=== PATIENT | female | born 1940 | race Caucasian/White ===

== ENCOUNTER 2017-07-23 09:35 | Day surgery (SDC) | payer MEDICARE, OTHER ==
[2017-07-23] MEDS ORDERED: Propofol 200 MG/20 ML SDV ONE (09:57)
[2017-07-23] MEDS ORDERED: Lactated Ringers 1,000 ML IV SCH (10:00)
[2017-07-23] MEDS ORDERED: Sodium Chloride 0.9% 5 ML Syringe FLUSH PRN (10:00)
--- NOTE | 2017-07-23 11:11 | PCM.PN ---
- General Info Date of Service: 07/23/17 - Review of Systems Systems Review Comment:: 77-year-old female referred by Abbey Medrano for EGD. This patient has symptoms of dysphasia as well as upper abdominal bloating. She is medically stable to proceed today with no recent significant changes in her health status compared to her history and physical which is reviewed. I discussed the proposed upper endoscopy with the patient. She understands indications and risks and agrees to proceed. - Patient Data Vitals - Most Recent: Last Vital Signs Temp 97.4 F 07/23/17 09:48 Pulse 88 07/23/17 09:48 Resp 18 07/23/17 09:48 BP 173/78 H 07/23/17 09:48 Pulse Ox 93 L 07/23/17 09:48 Weight - Most Recent: 70.307 kg Med Orders - Current: Current Medications Lactated Ringer's (Ringers, Lactated) 1,000 mls @ 50 mls/hr IV ASDIRECTED CHITO Last Admin: 07/23/17 10:19 Dose: 50 mls/hr Sodium Chloride (Syrex Flush) 5 ml FLUSH Q8HR PRN PRN Reason: Keep Vein Open Discontinued Medications Propofol (Diprivan 20 Ml) Confirm Administered Dose 400 mg .ROUTE .STK-MED ONE Stop: 07/23/17 09:58 - Problem List Review Problem List Initiated/Reviewed/Updated: Yes - My Orders Last 24 Hours: My Active Orders 07/23/17 10:00 Patient to Empty Bladder [RC] ASDIRECTED Peripheral IV Care [RC] . DIRECTED Verify Patient Consent Obtain [RC] ASDIRECTED Lactated Ringers [Ringers, Lactated] 1,000 ml IV ASDIRECTED Sodium Chloride 0.9% [Syrex Flush] 5 ml FLUSH Q8HR PRN Peripheral IV Insertion Adult [OM.PC] Routine 07/23/17 Breakfast Nothing Per Oral Diet [DIET] - Assessment Assessment:: Dysphasia Abdominal bloating - Plan Plan:: EGD
[2017-07-23] MEDS ORDERED: Propofol 200 MG/20 ML SDV IV ONE (11:12)
--- NOTE | 2017-07-23 11:40 | PCM.OPNOTE ---
- General Post-Op/Procedure Note Date of Surgery/Procedure: 07/23/17 Operative Procedure(s): EGD with Bx Findings: Large Hiatal Hernia with mild reflux esophagitis Pre Op Diagnosis: Dysphagia. Abdominal Bloating Post-Op Diagnosis: Hiatal Hernia. Reflux esophagitis Anesthesia Technique: MAC Primary Surgeon: Chris Lawrence Pathology: Biopsies of Gastric Antrum Output, Urine Amount: 0 EBL in mLs: 3 Complications: None Condition: Good
[2017-07-23 13:27] VITALS: BP 127/64
--- NOTE | 2017-07-23 22:34 | OR ---
DATE OF SURGERY: 07/23/2017 SURGEON: Chris Lawrence MD REFERRING PHYSICIAN: SERGEY Charlton PREOPERATIVE DIAGNOSIS: Dysphagia and upper abdominal bloating. POSTOPERATIVE DIAGNOSIS: Hiatal hernia, reflux esophagitis. OPERATION PERFORMED: Esophagogastroduodenoscopy with biopsy. INDICATIONS FOR SURGERY: This 77-year-old female, who is referred for upper endoscopy because of symptoms of intermittent upper abdominal bloating. She also notes some difficulty swallowing. FINDINGS: The patient has a very large hiatal hernia with over 50% of her stomach being up into the chest cavity. The lining of the stomach does not appear acutely inflamed. There is a mild degree of irritation at the GE junction suggestive of mild degree of reflux esophagitis but no sign of stricturing or intrinsic or extrinsic masses identified. The esophagus although shortened because of the large hiatal hernia, otherwise appears normal. The Z- line is 25 cm from the incisors. The duodenum appears normal. PROCEDURE: The patient was taken to the operating room. She was given intravenous sedation, and her throat was topically anesthetized. The Olympus gastroscope was introduced into the mouth via a mouth guard. The oropharynx is carefully examined. No sign of foreign body, inflammation ,or obstruction is seen. Cricopharyngeus is cannulated and the esophagus was examined as the scope was advanced. The large hiatal hernia was entered and then the scope was advanced into the small intestine where examination to the first portion of the jejunum was carried out. A careful examination of the small bowel did not reveal any visible abnormalities. The scope was withdrawn back into the stomach. Biopsies were taken of the antrum to rule out H pylori. The large hiatal hernia was carefully examined. No mucosal pathology was seen. The GE junction was also carefully examined and only the mild inflammation was seen. The scope was then removed and the patient was taken from the operating room in satisfactory condition. ESTIMATED BLOOD LOSS: 3 mL. COMPLICATIONS: None. PROGNOSIS: Good. /[id number]/MODL
== END 2017-07-23 13:03 | disposition home or self-care (01) ==
LOC: KA.SDS 09:35
PROVIDERS: ATTEND Surgery
DX: K29.50 Unspecified chronic gastritis without bleeding (principal); K44.9 Diaphragmatic hernia without obstruction or gangrene; I48.91 Unspecified atrial fibrillation; Z88.8 Allergy status to other drugs, medicaments and biological substances; Z79.899 Other long term (current) drug therapy
CPT/HCPCS: 00731; 88305; 88313; 88342; J2704; J7120

== ENCOUNTER 2017-12-24 18:42 | Inpatient (IN) | payer MEDICARE, OTHER ==
[2017-12-24] MEDS ORDERED: Sodium Chloride 0.9% 5 ML Syringe FLUSH PRN (18:49)
[2017-12-24] MEDS ORDERED: Metoprolol Tartrate 5 MG/5 ML SDV IVPUSH ONE ×2 (19:01→19:57)
--- NOTE | 2017-12-24 19:01 | EDM.PDOC ---
ED HPI GENERAL MEDICAL PROBLEM - General Chief Complaint: Respiratory Problem Stated Complaint: SHORTNESS OF BREATH Time Seen by Provider: 12/24/17 18:44 Source of Information: Reports: Patient, Family History Limitations: Reports: No Limitations - History of Present Illness INITIAL COMMENTS - FREE TEXT/NARRATIVE: 77 YO WF with history of A fib and CHF who presents to ER with complaints of not feeling well. Pt reports she hasn't taken her home medication today because they are difficult to swallow. Pt denies any chest pain or back pain. Pt reports feeling dizzy and chronically short of breath. Pt able to walk into ER without assistance. Onset: Today Location: Reports: Chest Severity: Moderate Worsens with: Reports: Breathing Associated Symptoms: Reports: Malaise, Shortness of Breath. Denies: Chest Pain , Cough, cough w sputum, Diaphoresis, Fever/Chills, Headaches, Nausea/Vomiting, Rash, Seizure, Syncope - Related Data Allergies Allergy/AdvReac Type Severity Reaction Status Date / Time DEE Inhibitors Allergy Edema Verified 12/24/17 19:01 diltiazem Allergy Rash Verified 12/24/17 19:01 ibuprofen Allergy Itching Verified 12/24/17 19:01 morphine Allergy Itching Verified 12/24/17 19:01 propoxyphene napsylate Allergy Itching Verified 12/24/17 19:01 [From Uriel] Home Meds: Home Meds RX: amLODIPine Besylate [Norvasc] 5 mg PO DAILY 06/06/15 [History] RX: Potassium Chloride 20 meq PO BID #30 tablet.er 07/02/15 [Rx] RX: Albuterol [IJD: Ventolin HFA] 2 puff INH .TWICE DAILY PRN #18 gm 04/19/16 [ Rx] RX: Furosemide 20 mg PO BID 04/19/16 [History] RX: Metoprolol Tartrate 50 mg PO DAILY 04/19/16 [History] Past Medical History HEENT History: Reports: Cataract, Hard of Hearing, Impaired Vision, Macular Degeneration Cardiovascular History: Reports: Afib, High Cholesterol, Hypertension, SOB on Exertion Respiratory History: Reports: Pneumonia, Recurrent, SOB Gastrointestinal History: Reports: None Genitourinary History: Reports: None Other Genitourinary History: cancer CONSTRUCTION ANALYST History: Reports: Dysfunctional Uterine Bleeding, Fibroids, Other CONSTRUCTION ANALYST History: hysterectomy 1979 Musculoskeletal History: Reports: Back Pain, Chronic Neurological History: Reports: None Psychiatric History: Reports: None Endocrine/Metabolic History: Reports: None Hematologic History: Reports: Anemia, Blood Transfusion(s), Transfusion Reaction Immunologic History: Reports: None Oncologic (Cancer) History: Reports: Bladder Dermatologic History: Reports: None - Infectious Disease History Infectious Disease History: Reports: Chicken Pox, Measles, Mumps, Shingles - Past Surgical History HEENT Surgical History: Reports: Cataract Surgery Cardiovascular Surgical History: Reports: None Respiratory Surgical History: Reports: None GI Surgical History: Reports: Appendectomy, EGD, Hernia, Abdominal Female Surgical History: Reports: D&C, Hysterectomy, Salpingo-Oophorectomy, Tubal Ligation Neurological Surgical History: Reports: Spinal Fusion Musculoskeletal Surgical History: Reports: None Oncologic Surgical History: Reports: None Social & Family History - Family History Family Medical History: Noncontributory - Caffeine Use Caffeine Use: Reports: Coffee ED ROS GENERAL - Review of Systems Review Of Systems: See Below Constitutional: Reports: No Symptoms HEENT: Reports: No Symptoms Respiratory: Reports: Shortness of Breath Cardiovascular: Reports: No Symptoms. Denies: Chest Pain, Edema, Palpitations, Syncope Endocrine: Reports: No Symptoms GI/Abdominal: Reports: No Symptoms : Reports: No Symptoms Musculoskeletal: Reports: No Symptoms Skin: Reports: No Symptoms Neurological: Reports: No Symptoms Psychiatric: Reports: No Symptoms Hematologic/Lymphatic: Reports: No Symptoms Immunologic: Reports: No Symptoms ED EXAM, GENERAL - Physical Exam Exam: See Below Exam Limited By: No Limitations General Appearance: Alert, WD/WN, No Apparent Distress Neck: Normal Inspection, Supple, Non-Tender, Full Range of Motion Respiratory/Chest: No Respiratory Distress, Normal Breath Sounds, No Accessory Muscle Use, Chest Non-Tender, Decreased Breath Sounds. No: Accessory Muscle Use , Retractions, Splinting Cardiovascular: Normal Peripheral Pulses, No Edema, No Gallop, No JVD, No Murmur , No Rub, Tachycardia, Irregularly Irregular GI/Abdominal: Normal Bowel Sounds, Soft, Non-Tender, No Organomegaly, No Distention, No Abnormal Bruit, No Mass Back Exam: Normal Inspection, Full Range of Motion, NT Extremities: Normal Inspection, Normal Range of Motion, Non-Tender, Normal Capillary Refill, No Pedal Edema Neurological: Alert, Oriented, CN II-XII Intact, Normal Cognition, Normal Gait, Normal Reflexes, No Motor/Sensory Deficits Psychiatric: Normal Affect, Normal Mood Skin Exam: Warm, Dry, Intact, Normal Color, No Rash Lymphatic: No Adenopathy EKG INTERPRETATION EKG Date: 12/24/17 Time: 18:58 Rhythm: A-Fib Rate (Beats/Min): 138 [place]: Normal P-Wave: Absent QRS: Normal ST-T: Normal QT: Normal Course - Vital Signs Last Recorded V/S: Last Vital Signs Temp 37.3 C 12/24/17 19:56 Pulse 121 H 12/24/17 19:56 Resp 22 H 12/24/17 19:56 BP 131/79 12/24/17 19:56 Pulse Ox 97 12/24/17 19:56 - Orders/Labs/Meds Orders: Active Orders 24 hr Category Date Time Status Cardiac Monitoring [RC] . DIRECTED Care 12/24/17 18:49 Active EKG Documentation Completion [RC] ASDIRECTED Care 12/24/17 18:52 Active Oxygen Therapy Adult [Oxygen Therapy, ED] [RC] Care 12/24/17 18:49 Active ASDIRECTED Peripheral IV Care [RC] . DIRECTED Care 12/24/17 18:52 Active Chest 2V [CR] Stat Exams 12/24/17 18:49 Taken Sodium Chloride 0.9% [Syrex Flush] Med 12/24/17 18:49 Active 5 ml FLUSH Q8HR PRN Peripheral IV Insertion Adult [OM.PC] Routine Oth 12/24/17 18:49 Ordered EKG 12 Lead [EK] Routine Ther 12/24/17 18:49 Ordered Medication Orders Metoprolol Tartrate (Lopressor) 12.5 mg PO ONETIME ONE Stop: 12/24/17 22:01 Metoprolol Tartrate (Lopressor) 50 mg PO BID CHITO Sodium Chloride (Syrex Flush) 5 ml FLUSH Q8HR PRN PRN Reason: Keep Vein Open Sodium Chloride (Syrex Flush) 5 ml FLUSH Q8HR PRN PRN Reason: Keep Vein Open Labs: Laboratory Tests 12/24/17 12/24/17 Range/Units 18:50 18:50 WBC 6.2 (5.0-10.0) 10^3/uL RBC 5.10 (3.80-5.50) 10^6/uL Hgb 17.0 H (12.0-16.0) g/dL Hct 48.6 H (37.0-47.0) % MCV 95.3 H D (82.0-92.0) fL MCH 33.3 H (27.0-31.0) pg MCHC 35.0 (32.0-36.0) g/dL RDW 14.4 (11.5-14.5) % Plt Count 194 (150-400) 10^3/uL MPV 11.3 H (7.4-10.4) fL Immature Gran % (Auto) 0.6 (0.0-5.0) % Neut % (Auto) 69.5 (50.0-70.0) % Lymph % (Auto) 19.6 L (20.0-40.0) % Sanders % (Auto) 9.3 H (2.0-8.0) % Eos % (Auto) 0.2 L (1.0-3.0) % Baso % (Auto) 0.8 (0.0-1.0) % Immature Gran # (Auto) 0.04 (0.00-0.50) 10^3/uL Neut # (Auto) 4.31 (2.50-7.00) 10^3/uL Lymph # (Auto) 1.22 (1.00-4.00) 10^3/uL Sanders # (Auto) 0.58 (0.10-0.80) 10^3/uL Eos # (Auto) 0.01 L (0.10-0.30) 10^3/uL Baso # (Auto) 0.05 (0.00-0.10) 10^3/uL Sodium 132 L (136-145) mmol/L Potassium 3.4 (3.3-5.3) mmol/L Chloride 91 L (98-115) mmol/L Carbon Dioxide 23.7 (21.0-32.0) mmol/L Anion Gap 20.7 H (5-15) mmol/L BUN 13 (6-25) mg/dL Creatinine 0.74 (0.51-1.17) mg/dL Est Cr Clr Drug Dosing 57.71 mL/min Estimated GFR (MDRD) > 60 mL/min Glucose 103 mg/dL Calcium 9.2 (8.7-10.3) mg/dL Total Bilirubin 1.5 H (0.2-1.0) mg/dL AST 56 H (15-37) U/L ALT 61 (12-78) U/L Alkaline Phosphatase 117 H (46-116) IU/L Creatine Kinase 48 (26-276) U/L CK-MB (CK-2) 0.80 (0.00-4.30) ng/mL Troponin I < 0.04 (0.00-0.070) ng/mL B-Natriuretic Peptide 237 H (0-100) pg/mL Total Protein 7.9 (6.4-8.2) g/dL Albumin 3.65 (3.00-4.80) g/dL Meds: Medications Generic Name Dose Route Start Last Admin Trade Name Freq PRN Reason Stop Dose Admin Metoprolol Tartrate 12.5 mg 12/24/17 22:00 Lopressor PO 12/24/17 22:01 ONETIME ONE Metoprolol Tartrate 50 mg 12/25/17 07:00 Lopressor PO BID CHITO Sodium Chloride 5 ml 12/24/17 18:49 Syrex Flush FLUSH Q8HR PRN Keep Vein Open Sodium Chloride 5 ml 12/24/17 19:57 Syrex Flush FLUSH Q8HR PRN Keep Vein Open Discontinued Medications Generic Name Dose Route Start Last Admin Trade Name Freq PRN Reason Stop Dose Admin Metoprolol Tartrate 5 mg 12/24/17 19:01 12/24/17 19:20 Lopressor IVPUSH 12/24/17 19:02 5 mg ONETIME ONE Administration Metoprolol Tartrate 5 mg 12/24/17 19:57 Lopressor IVPUSH 12/24/17 19:58 ONETIME ONE - Radiology Interpretation Free Text/Narrative:: CXR- NAD Departure - Departure Time of Disposition: 19:39 Disposition: Admitted As Inpatient 64 Condition: Fair Clinical Impression: Atrial fibrillation with rapid ventricular response - Discharge Information - My Orders Last 24 Hours: My Active Orders 12/24/17 18:49 Cardiac Monitoring [RC] . DIRECTED Oxygen Therapy Adult [Oxygen Therapy, ED] [RC] ASDIRECTED Chest 2V [CR] Stat Sodium Chloride 0.9% [Syrex Flush] 5 ml FLUSH Q8HR PRN Peripheral IV Insertion Adult [OM.PC] Routine EKG 12 Lead [EK] Routine 12/24/17 18:52 EKG Documentation Completion [RC] ASDIRECTED Peripheral IV Care [RC] . DIRECTED - Assessment/Plan Last 24 Hours: My Active Orders 12/24/17 18:49 Cardiac Monitoring [RC] . DIRECTED Oxygen Therapy Adult [Oxygen Therapy, ED] [RC] ASDIRECTED Chest 2V [CR] Stat Sodium Chloride 0.9% [Syrex Flush] 5 ml FLUSH Q8HR PRN Peripheral IV Insertion Adult [OM.PC] Routine EKG 12 Lead [EK] Routine 12/24/17 18:52 EKG Documentation Completion [RC] ASDIRECTED Peripheral IV Care [RC] . DIRECTED Assessment:: 1. Atrial Fibrillation with RVR Plan: 1. Admit for rate control- Dr Sharon Lanza 2. metoprolol 25mg PO BID 3. supportive care 4. gentle fluid hydration to correct hyponatremia
[2017-12-24 19:27] LABS: ANION GAP 20.7 mmol/L (5-15); CHLORIDE,CL 91 mmol/L (98-115); SODIUM,NA 132 mmol/L (136-145)
[2017-12-24] MEDS ORDERED: Metoprolol Tartrate 25 MG Tab PO ONE (22:00)
[2017-12-25] MEDS: Metoprolol Tartrate 50 MG Tab PO SCH ×3 (06:04→20:26)
[2017-12-25 08:05] LABS: ANION GAP 7.5 mmol/L (5-15); CHLORIDE,CL 96 mmol/L (98-115); SODIUM,NA 125 mmol/L (136-145)
[2017-12-25] MEDS ORDERED: Magnesium Sulfate/Water 2 GM in Premix Bag 1 BAG IV ONE (10:37)
[2017-12-25] MEDS ORDERED: Potassium Chloride 20 MEQ in Premix Bag 1 BAG IV ONE (10:39)
[2017-12-25] MEDS ORDERED: Nitroglycerin 0.4 MG Tab.SL SL PRN (11:07)
[2017-12-25] MEDS ORDERED: Atropine 0.1 MG/ML 10 ML Syringe IVPUSH PRN (11:07)
[2017-12-25] MEDS ORDERED: EPINEPHrine 1:10,000 1 MG/10 ML Syringe IVPUSH PRN (11:07)
[2017-12-25] MEDS ORDERED: Lidocaine 2% 100 MG/5 ML Syringe IVPUSH PRN (11:07)
[2017-12-25] MEDS ORDERED: Sodium Chloride 0.9% 250 ML ONE (11:15)
[2017-12-25] MEDS: Sodium Chloride 1 GM Tab PO SCH ×2 (11:19→20:26)
[2017-12-25] MEDS: Sodium Chloride 0.9% 5 ML Syringe FLUSH PRN (11:31)
[2017-12-25] MEDS ORDERED: Albuterol HFA 18 Gm Inhaler INH PRN (11:49)
[2017-12-25] MEDS ORDERED: amLODIPine 2.5 MG Tab PO SCH (12:00)
[2017-12-25] MEDS ORDERED: Magnesium Sulfate/Water 50 ML IV ONE (12:45)
[2017-12-25] MEDS: amLODIPine 2.5 MG Tab PO SCH ×2 (14:14→20:26)
--- NOTE | 2017-12-25 15:14 | PN ---
12/25/2017 PATIENT NAME: CIERRA MALHOTRA SUBJECTIVE: This is a 77-year-old female who was admitted through the emergency room yesterday with atrial fibrillation with rapid ventricular response. She does have a past history of atrial fibrillation as well as congestive heart failure and COPD. The patient reported to the ER provider that she had not been taking her home medications because they were difficult to swallow. The patient denied any chest pain or back pain. She was having some dizziness and chronic shortness of breath. She was able to walk into the emergency room without any assistance. Ventricular rate of the atrial fibrillation bennett is in the 140s. She did receive some IV metoprolol. She has tried Cardizem in the past, however, developed a rash from it. Emergency room labs have been reviewed. BNP is 237. The troponins have been normal at less than 0.04. Significant lab data from today shows a normal white count. Her hemoglobin is 14.5. She does have a sodium of 125 with this being lower than when she was in the emergency room last evening. Her sodium at that time was 132. Potassium was 3.1. Magnesium was low at 1.6. Calcium was also low at 8.5. Again troponin I today was less than 0.04. BNP in the emergency room was 237. The patient reports for the past month she has been tired and increasingly short of breath. She has not had a recent clinic appointment. She has been on telemetry in atrial fibrillation with a rate of 100 to 117. There was a plan for gentle fluid hydration to correct hyponatremia; however, this was not initiated. OBJECTIVE: VITAL SIGNS: Temp is 98.1; pulse is 106 according to the vital sheet, when I auscultated her apical pulse for 1 minute on exam, her pulse was 88; respiratory rate was 18, blood pressure 126/85. Her oxygen saturation is 96% on room air, it has been as low as 94%. SKIN: Warm and dry to touch. CARDIAC: Reveals S1, S2 to be normal. She does have an irregularly irregular rhythm with a rate of 88 beats per minute apically. There is no murmur, click, or gallop auscultated. LUNGS: Clear with exception of fine rales in the right lower lobe. ABDOMEN: Soft, nontender. Bowel sounds present in all 4 quadrants. EXTREMITIES: She does not have any pedal edema. IMPRESSION: 1. Atrial fibrillation with rapid ventricular response. Her rate has become better controlled at this time with the addition of metoprolol received in the emergency room. She recently had an echocardiogram on 07/25/2017, which showed normal left ventricular wall motion and contractility; ejection fraction 55% to 60%; no LVH; left ventricle was in normal size; left atrium was mildly dilated; right ventricle was normal size and systolic function; no significant valvular stenosis or regurgitation; there was no pericardial effusion. Chest x-ray performed in 07/2017 showed an increased size of cardiac silhouette and a hiatal hernia. 2. Difficulty swallowing pills. She did have an upper GI endoscopy on 07/23/2017, which showed hiatal hernia and some reflux esophagitis. We will schedule her for a swallow eval. She does have issue swallowing pills and sometimes actually ends up spitting them back up or eliminating the dose. This may have contributed to the recurrent rapid ventricular rate of her atrial fibrillation. 3. Hyponatremia. She will be given oral sodium replacement today. 4. Hypokalemia. She will receive IV potassium replacement today. 5. Hypomagnesemia. She will receive 2 g of magnesium intravenously today. 6. Chronic obstructive pulmonary disease. This is a chronic problem. She is oxygenating without signs of oxygen desaturation or hypoxia. We will add 1- 2 L of oxygen due to shortness of breath. I have encouraged the patient to be up walking in the hallway. We may consider setting her up for a cardiac rehab as a suggestion for conditioning. She is a bit of up fall risk. She does live at home. She describes periods when she changes position quickly that she gets somewhat lightheaded. She also admits to 2 "large" alcoholic beverages per day. Her [id number], María Malhotra, Pharm. D, was present during her examination this morning as well as her son, Chris. If her labs have normalized by tomorrow, discharge may be entertained. We will continue to monitor closely. /[id number]/MODL
[2017-12-26 07:59] LABS: ANION GAP 11.8 mmol/L (5-15); CHLORIDE,CL 98 mmol/L (98-115); SODIUM,NA 131 mmol/L (136-145)
[2017-12-26] MEDS ORDERED: Metoprolol Tartrate 50 MG Tab PO ONE (08:45)
[2017-12-26] MEDS: amLODIPine 2.5 MG Tab PO SCH ×2 (08:59→21:48)
[2017-12-26] MEDS: Furosemide 20 MG Tab PO SCH (08:59)
[2017-12-26] MEDS: Sodium Chloride 1 GM Tab PO SCH ×2 (08:59→21:48)
[2017-12-26] MEDS ORDERED: Metoprolol Tartrate 50 MG Tab PO SCH (09:00)
[2017-12-26] MEDS: Aspirin 81 MG Tab.EC PO SCH (09:02)
[2017-12-26] MEDS: Metoprolol Tartrate 50 MG Tab PO SCH ×2 (09:02→21:46)
[2017-12-26] MEDS: Sodium Chloride 0.9% 5 ML Syringe FLUSH PRN (09:05)
--- NOTE | 2017-12-26 17:08 | PN ---
12/26/2017 PATIENT NAME: CIERRA PRADHAN SUBJECTIVE: This is a 77-year-old female who was admitted to the emergency room with atrial fibrillation with RVR. She was given IV metoprolol in the emergency room. She has tried Cardizem in the past, however, developed a rash from it. Yesterday, she was found to be hypokalemic, hypomagnesemic, and hyponatremic. Potassium and magnesium were replaced intravenously and have normalized today. Potassium on 12/25/2017 was 3.1, which has now, this morning, improved to 3.7. Magnesium was 1.6 yesterday and is now 2.0. These problems have corrected. Sodium is 131, previously 125 yesterday. We are replacing sodium orally 1 g b.i.d. The patient reports she is feeling better today. Less short of breath and less groggy. She denies any chest pain. She believes her shortness of breath is somewhat better. She does not feel that she has improved 100% yet. She was complaining of having difficulty swallowing pills and is scheduled to have a video swallow evaluation as an outpatient. She last had an echocardiogram on 07/25/2017, which showed normal left ventricular wall motion and contractility with an ejection fraction of 55% to 60%. Right ventricle was normal. Valvular structures were found to be normal as well. The only abnormality found on the echocardiogram was left atrium enlargement, which was deemed to be mild. She does have a low calcium in addition to a low protein and albumin. This is possibly a nutritional issue secondary to not eating well over the course of the past three to four days. Her calcium on admission was 9.2, today is 8.4. Total protein is 6.3 and albumin 2.86. Corrected calcium is 9.3, which is within normal limits. OBJECTIVE: VITAL SIGNS: Temperature is 97.1, pulse is 109 at rest. Of note, her pulse rate does increase to 120-140 with the slightest bit of exertion, such as eating. This was noted on the telemetry as well as an apical pulse while the patient was sitting up eating. She does have an irregularly irregular heart rhythm, respirations are 20, blood pressure 130/79, and her oxygen saturation is 92% on room air. She does have p.r.n. oxygen, which she is not using at the time of the exam. SKIN: Warm and dry to touch. CARDIAC: S1, S2 to be normal. She has an irregularly irregular rhythm with an apical heart rate of 136 while sitting up eating. No murmur, click, or gallop is auscultated. LUNGS: Clear. She previously had rales in the right lower lobe, however, does not have crackles any longer. ABDOMEN: Soft, nontender. Bowel sounds present in all four quadrants. EXTREMITIES: There is no pedal edema. IMPRESSION: 1. Atrial fibrillation with rapid ventricular response. This has improved; however, she still has some rate issues with minimal exertion. She is taking metoprolol 50 mg b.i.d. We will give an additional 50 mg this morning and see how she responds to this. 2. Difficulty swallowing pills. She did have an upper GI endoscopy on 07/23/2017, which showed hiatal hernia with some reflux esophagitis. She will be set up for a video swallow evaluation as an outpatient. 3. Hyponatremia. We will continue giving oral sodium supplementation. This has improved. 4. Hypokalemia, this has resolved. 5. hypomagnesemia, this has resolved. 6. Chronic obstructive pulmonary disease, this is a chronic problem. She has been oxygenating fairly well without oxygen. However, I did add 1-2 L of oxygen p.r.n. yesterday which has improved her shortness of breath. I have encouraged the patient to be up, walking in the hallway. I do believe she would benefit from some cardiac rehabilitation as she does seem somewhat deconditioned to me. I have discussed my findings with Dr. Sharon Gaming, who concurs. /[id number]/MODL
[2017-12-27 08:29] LABS: ANION GAP 11.8 mmol/L (5-15); CHLORIDE,CL 100 mmol/L (98-115); SODIUM,NA 132 mmol/L (136-145)
[2017-12-27] MEDS: Metoprolol Tartrate 50 MG Tab PO SCH ×2 (08:56→21:08)
[2017-12-27] MEDS: Sodium Chloride 1 GM Tab PO SCH ×2 (08:56→21:09)
[2017-12-27] MEDS: Furosemide 20 MG Tab PO SCH (08:56)
[2017-12-27] MEDS: Aspirin 81 MG Tab.EC PO SCH (08:56)
[2017-12-27] MEDS: amLODIPine 2.5 MG Tab PO SCH ×2 (08:56→21:09)
[2017-12-27] MEDS ORDERED: Metoprolol Tartrate 50 MG Tab PO ONE (09:30)
[2017-12-27] MEDS: Sodium Chloride 0.9% 5 ML Syringe FLUSH PRN (09:48)
--- NOTE | 2017-12-27 09:52 | PCM.PN ---
- General Info Date of Service: 12/27/17 Admission Dx/Problem (Free Text): Atrial fibrillation with RVR. - Review of Systems Systems Review Comment:: Vickie was admitted on 12/24/17 through the ER with a-fib with RVR. She takes metoprolol as an outpatient 50 mg PO BID although she thinks she was only taking it once daily. She has a hx a-fib with RVR and had an allergic reaction to diltiazem and has an intolerance to digoxin and amiodarone. She was given IV metoprolol in the ER which brought her rate down from 140's to 110's. She has had an elevation in her HR with any sort of activity. She received an extra dose of metoprolol 50 mg x 1 yesterday without much effect in her HR. She notes pill dysphagia, no problems with foods or liquids. Video swallow has been ordered. EGD done in the past year has been unremarkable. She notes she feels very tired, but has for the past year. Her [id number] also noted very concentrated appearing urine today. She has been found to have low sodium and this is improving with the addition of salt tabs. Her potassium was low this morning. - Patient Data Vitals - Most Recent: Last Vital Signs Temp 98.4 F 12/27/17 06:18 Pulse 106 H 12/27/17 08:56 Resp 24 H 12/27/17 06:18 BP 119/62 12/27/17 08:56 Pulse Ox 94 L 12/27/17 06:18 Weight - Most Recent: 150 lb I&O - Last 24 Hours: Intake & Output 12/26/17 12/27/17 12/27/17 22:59 06:59 14:59 Intake Total 50 Output Total 400 100 Balance -400 -50 Lab Results Last 24 Hours: Laboratory Results - last 24 hr 12/27/17 12/27/17 Range/Units 07:15 07:15 Sodium 132 L (136-145) mmol/L Potassium 3.1 L (3.3-5.3) mmol/L Chloride 100 (98-115) mmol/L Carbon Dioxide 23.3 (21.0-32.0) mmol/L Anion Gap 11.8 (5-15) mmol/L BUN 14 (6-25) mg/dL Creatinine 0.61 (0.51-1.17) mg/dL Est Cr Clr Drug Dosing 70.01 mL/min Estimated GFR (MDRD) > 60 mL/min Glucose 87 mg/dL Calcium 8.3 L (8.7-10.3) mg/dL Free T4 1.01 (0.59-1.17) ng/dL TSH, Ultra Sensitive 3.260 (0.340-4.820) uIU/mL Med Orders - Current: Current Medications Albuterol (Ventolin Hfa) 0 gm INH BID PRN PRN Reason: Shortness of Breath Amlodipine Besylate (Norvasc) 2.5 mg PO BID [facility] Last Admin: 12/27/17 08:56 Dose: 2.5 mg Aspirin (Halfprin) 81 mg PO WITHBREAKFAST [facility] Last Admin: 12/27/17 08:56 Dose: 81 mg Atropine Sulfate (Atropine 0.1 Mg/Ml) 0 mg IVPUSH ASDIRECTED PRN PRN Reason: Heart Epinephrine HCl (Epinephrine 1:10,000) 1 mg IVPUSH ASDIRECTED PRN PRN Reason: Heart Furosemide (Lasix) 20 mg PO DAILY [facility] Last Admin: 12/27/17 08:56 Dose: 20 mg Lidocaine HCl (Xylocaine 2%) 0 mg IVPUSH ASDIRECTED PRN PRN Reason: Heart Metoprolol Tartrate (Lopressor) 100 mg PO BID [facility] Nitroglycerin (Nitrostat) 0.4 mg SL ASDIRECTED PRN PRN Reason: Heart Sodium Chloride (Syrex Flush) 5 ml FLUSH Q8HR PRN PRN Reason: Keep Vein Open Last Admin: 12/26/17 09:05 Dose: 5 ml Sodium Chloride (Sodium Chloride) 1 gm PO BID [facility] Last Admin: 12/27/17 08:56 Dose: 1 gm Discontinued Medications Amlodipine Besylate (Norvasc) 5 mg PO DAILY [facility] Last Admin: 12/25/17 12:47 Dose: Not Given Potassium Chloride 20 meq/ (Premix) 100 mls @ 50 mls/hr IV ONETIME ONE Stop: 12/25/17 12:38 Last Admin: 12/25/17 11:24 Dose: 50 mls/hr Sodium Chloride (Normal Saline) Confirm Administered Dose 250 mls @ as directed .ROUTE .STK-MED ONE Stop: 12/25/17 11:16 Last Admin: 12/25/17 11:31 Dose: 50 mls/hr Magnesium Sulfate (Magnesium Sulfate 4 Gm In Water 100 Ml) 50 mls @ 100 mls/hr IV ONETIME ONE Stop: 12/25/17 13:14 Last Admin: 12/25/17 14:33 Dose: 100 mls/hr Metoprolol Tartrate (Lopressor) 5 mg IVPUSH ONETIME ONE Stop: 12/24/17 19:02 Last Admin: 12/24/17 19:20 Dose: 5 mg Metoprolol Tartrate (Lopressor) 5 mg IVPUSH ONETIME ONE Stop: 12/24/17 19:58 Last Admin: 12/24/17 20:03 Dose: 5 mg Metoprolol Tartrate (Lopressor) 12.5 mg PO ONETIME ONE Stop: 12/24/17 22:01 Last Admin: 12/24/17 21:40 Dose: 12.5 mg Metoprolol Tartrate (Lopressor) 50 mg PO BID [facility] Last Admin: 12/27/17 08:56 Dose: 50 mg Metoprolol Tartrate (Lopressor) 50 mg PO DAILY [facility] Metoprolol Tartrate (Lopressor) 50 mg PO ONETIME ONE Stop: 12/26/17 08:46 Last Admin: 12/26/17 09:02 Dose: 50 mg Metoprolol Tartrate (Lopressor) 50 mg PO ONETIME ONE Stop: 12/27/17 09:31 Sodium Chloride (Syrex Flush) 5 ml FLUSH Q8HR PRN PRN Reason: Keep Vein Open - Exam Quality Assessment: Supplemental Oxygen General: Alert, Oriented, Cooperative, No Acute Distress Lungs: Clear to Auscultation, Normal Respiratory Effort Cardiovascular: Irregular Rhythm, Tachycardia, Murmurs (2/6 systolic murmur) GI/Abdominal Exam: Normal Bowel Sounds Extremities: Normal Inspection, No Pedal Edema - Problem List & Annotations (1) Hypokalemia SNOMED Code(s): 28927704 Code(s): E87.6 - HYPOKALEMIA Status: Acute Current Visit: Yes (2) Pill dysphagia SNOMED Code(s): 103516180 Code(s): R13.10 - DYSPHAGIA, UNSPECIFIED Status: Acute Current Visit: Yes (3) Atrial fibrillation with rapid ventricular response SNOMED Code(s): 661680932838988 Code(s): I48.91 - UNSPECIFIED ATRIAL FIBRILLATION Status: Acute Current Visit: Yes (4) Congestive heart failure SNOMED Code(s): 18927279 Code(s): I50.9 - HEART FAILURE, UNSPECIFIED Status: Chronic Current Visit : No Qualifiers: Qualified Code(s): I50.9 - Heart failure, unspecified (5) Hypertension SNOMED Code(s): 39081019 Code(s): I10 - ESSENTIAL (PRIMARY) HYPERTENSION Status: Chronic Current Visit: No (6) Hyponatremia SNOMED Code(s): 45304657 Code(s): E87.1 - HYPO-OSMOLALITY AND HYPONATREMIA Status: Acute Current Visit: Yes - Problem List Review Problem List Initiated/Reviewed/Updated: Yes - My Orders Last 24 Hours: My Active Orders 12/27/17 08:55 UA W/O MICROSCOPIC [URIN] Routine 12/27/17 21:00 Metoprolol Tartrate [Lopressor] 100 mg PO BID - Assessment Assessment:: A-fib with RVR. CHF HTN Hyopkalemia Hyponatremia Pill dysphagia Concentrated urine - Plan Plan:: A-fib with RVR. I spoke to cardiology at [facility] as that is where she would want to be transferred and they recommended going up on metoprolol so will increase to 100 mg PO BID. If no change in 2-3 days may need referral for EP study and possible ablation. CHF Stable, no exacerbation. HTN. Stable, will monitor with increase in metoprolol. Hypopkalemia. Start potassium chloride 20 mEq PO daily. Hyponatremia. Continue salt tabs. Pill dysphagia. Video swallow ordered. Concentrated urine. Will get UA today. I also checked thyroid studies and they are normal. Troponins negative.
[2017-12-27] MEDS: Potassium Chloride 10 MEQ Tab.ER PO SCH (10:36)
[2017-12-27] MEDS: NS + KCl 20mEq/L 1,000 ML IV SCH (13:36)
[2017-12-27] MEDS: Rivaroxaban 10 MG Tab PO SCH (17:45)
[2017-12-27] MEDS: Ciprofloxacin 250 MG Tab PO SCH (21:07)
[2017-12-28] MEDS: NS + KCl 20mEq/L 1,000 ML IV SCH (03:38)
[2017-12-28 08:32] LABS: ANION GAP 13.5 mmol/L (5-15); CHLORIDE,CL 101 mmol/L (98-115); SODIUM,NA 133 mmol/L (136-145)
[2017-12-28] MEDS: Aspirin 81 MG Tab.Chew PO SCH (09:14)
[2017-12-28] MEDS: Metoprolol Tartrate 50 MG Tab PO SCH ×2 (09:15→20:38)
[2017-12-28] MEDS: Furosemide 20 MG Tab PO SCH (09:15)
[2017-12-28] MEDS: Potassium Chloride 10 MEQ Tab.ER PO SCH (09:15)
[2017-12-28] MEDS: Ciprofloxacin 250 MG Tab PO SCH ×2 (09:15→20:37)
[2017-12-28] MEDS: Rivaroxaban 10 MG Tab PO SCH (09:16)
[2017-12-28] MEDS: amLODIPine 2.5 MG Tab PO SCH ×2 (09:16→20:38)
[2017-12-28] MEDS: Sodium Chloride 1 GM Tab PO SCH ×2 (09:16→20:37)
--- NOTE | 2017-12-28 11:08 | PCM.PN ---
- General Info Date of Service: 12/28/17 Admission Dx/Problem (Free Text): Atrial fibrillation with RVR. Subjective Update: Pt reports she is feeling tired today. Pt denies any shortness of breath or chest pain. Pt ambulating without difficulty. Functional Status: Reports: Pain Controlled, Tolerating Diet, Ambulating, Urinating, Incentive Spirometry Pain Score: 0 - Review of Systems General: Reports: No Symptoms HEENT: Reports: No Symptoms Pulmonary: Reports: No Symptoms Cardiovascular: Reports: No Symptoms Gastrointestinal: Reports: No Symptoms Genitourinary: Reports: No Symptoms Musculoskeletal: Reports: No Symptoms Skin: Reports: No Symptoms Neurological: Reports: No Symptoms Psychiatric: Reports: No Symptoms - Patient Data Vitals - Most Recent: Last Vital Signs Temp 36.4 C 12/28/17 07:00 Pulse 110 H 12/28/17 09:17 Resp 24 H 12/28/17 07:00 BP 110/75 12/28/17 09:17 Pulse Ox 95 12/28/17 07:00 Weight - Most Recent: 68.039 kg I&O - Last 24 Hours: Intake & Output 12/27/17 12/28/17 12/28/17 22:59 06:59 14:59 Intake Total 851 582 Output Total 300 Balance 551 582 Lab Results Last 24 Hours: Laboratory Results - last 24 hr 12/27/17 12/28/17 12/28/17 Range/Units 12:20 08:00 08:00 WBC 6.5 (5.0-10.0) 10^3/uL RBC 4.53 (3.80-5.50) 10^6/uL Hgb 15.2 (12.0-16.0) g/dL Hct 44.3 (37.0-47.0) % MCV 97.8 H (82.0-92.0) fL MCH 33.6 H (27.0-31.0) pg MCHC 34.3 (32.0-36.0) g/dL RDW 14.1 (11.5-14.5) % Plt Count 157 (150-400) 10^3/uL MPV 12.2 H (7.4-10.4) fL Immature Gran % (Auto) 0.3 (0.0-5.0) % Neut % (Auto) 80.4 H (50.0-70.0) % Lymph % (Auto) 11.5 L (20.0-40.0) % [place] % (Auto) 6.3 (2.0-8.0) % Eos % (Auto) 0.9 L (1.0-3.0) % Baso % (Auto) 0.6 (0.0-1.0) % Immature Gran # (Auto) 0.02 (0.00-0.50) 10^3/uL Neut # (Auto) 5.23 (2.50-7.00) 10^3/uL Lymph # (Auto) 0.75 L (1.00-4.00) 10^3/uL [place] # (Auto) 0.41 (0.10-0.80) 10^3/uL Eos # (Auto) 0.06 L (0.10-0.30) 10^3/uL Baso # (Auto) 0.04 (0.00-0.10) 10^3/uL Sodium 133 L (136-145) mmol/L Potassium 4.3 (3.3-5.3) mmol/L Chloride 101 (98-115) mmol/L Carbon Dioxide 22.8 (21.0-32.0) mmol/L Anion Gap 13.5 (5-15) mmol/L BUN 11 (6-25) mg/dL Creatinine 0.51 (0.51-1.17) mg/dL Est Cr Clr Drug Dosing 83.73 mL/min Estimated GFR (MDRD) > 60 mL/min Glucose 101 mg/dL Calcium 8.4 L (8.7-10.3) mg/dL B-Natriuretic Peptide 297 H (0-100) pg/mL Specimen Type Urinblad Urine Color Yellow (YELLOW) Urine Appearance Slightly cloudy H (CLEAR) Urine pH 5.5 (5.0-9.0) Ur Specific [place] 1.025 (1.005-1.030) Urine Protein Negative (NEGATIVE) mg/dL Urine Glucose (UA) Negative (NEGATIVE) mg/dL Urine Ketones 15 H (NEGATIVE) mg/dL Urine Occult Blood Trace-intact H (NEGATIVE) Urine Nitrite Negative (NEGATIVE) Urine Bilirubin Small H (NEGATIVE) Urine Urobilinogen 4.0 H (0.2-1.0) E.U./dL Ur Leukocyte Esterase Small H (NEGATIVE) Urine RBC 0-5 /HPF Urine WBC >100 H /HPF Ur Epithelial Cells Moderate H /LPF Urine Bacteria Moderate H (NONE TO FEW) /HPF [facility] Results Last 24 Hours: Microbiology 12/27/17 12:58 Urine Culture - Preliminary Urine, Bladder MIXED CAIO DAY 1 Med Orders - Current: Current Medications Albuterol (Ventolin Hfa) 0 gm INH BID PRN PRN Reason: Shortness of Breath Amlodipine Besylate (Norvasc) 2.5 mg PO BID [facility] Last Admin: 12/28/17 09:16 Dose: 2.5 mg Aspirin (Aspirin) 81 mg PO WITHBREAKFAST [facility] Last Admin: 12/28/17 09:14 Dose: 81 mg Atropine Sulfate (Atropine 0.1 Mg/Ml) 0 mg IVPUSH ASDIRECTED PRN PRN Reason: Heart Ciprofloxacin (Ciprofloxacin Hcl) 250 mg PO BID [facility] Last Admin: 12/28/17 09:15 Dose: 250 mg Epinephrine HCl (Epinephrine 1:10,000) 1 mg IVPUSH ASDIRECTED PRN PRN Reason: Heart Furosemide (Lasix) 20 mg PO DAILY [facility] Last Admin: 12/28/17 09:15 Dose: 20 mg Potassium Chloride/Sodium Chloride (Normal Saline With 20 Meq Kcl) 1,000 mls @ 75 mls/hr IV ASDIRECTED [facility] Last Admin: 12/28/17 03:38 Dose: 75 mls/hr Lidocaine HCl (Xylocaine 2%) 0 mg IVPUSH ASDIRECTED PRN PRN Reason: Heart Metoprolol Tartrate (Lopressor) 100 mg PO BID [facility] Last Admin: 12/28/17 09:15 Dose: 100 mg Nitroglycerin (Nitrostat) 0.4 mg SL ASDIRECTED PRN PRN Reason: Heart Potassium Chloride (Klor-Con 10) 20 meq PO WITHBREAKFAST [facility] Last Admin: 12/28/17 09:15 Dose: 20 meq Rivaroxaban (Xarelto) 20 mg PO DAILY [facility] Last Admin: 12/28/17 09:16 Dose: 20 mg Sodium Chloride (Syrex Flush) 5 ml FLUSH Q8HR PRN PRN Reason: Keep Vein Open Last Admin: 12/27/17 09:48 Dose: 5 ml Sodium Chloride (Sodium Chloride) 1 gm PO BID [facility] Last Admin: 12/28/17 09:16 Dose: 1 gm Discontinued Medications Amlodipine Besylate (Norvasc) 5 mg PO DAILY [facility] Last Admin: 12/25/17 12:47 Dose: Not Given Aspirin (Halfprin) 81 mg PO WITHBREAKFAST [facility] Last Admin: 12/27/17 08:56 Dose: 81 mg Potassium Chloride 20 meq/ (Premix) 100 mls @ 50 mls/hr IV ONETIME ONE Stop: 12/25/17 12:38 Last Admin: 12/25/17 11:24 Dose: 50 mls/hr Sodium Chloride (Normal Saline) Confirm Administered Dose 250 mls @ as directed .ROUTE .STK-MED ONE Stop: 12/25/17 11:16 Last Admin: 12/25/17 11:31 Dose: 50 mls/hr Magnesium Sulfate (Magnesium Sulfate 4 Gm In Water 100 Ml) 50 mls @ 100 mls/hr IV ONETIME ONE Stop: 12/25/17 13:14 Last Admin: 12/25/17 14:33 Dose: 100 mls/hr Metoprolol Tartrate (Lopressor) 5 mg IVPUSH ONETIME ONE Stop: 12/24/17 19:02 Last Admin: 12/24/17 19:20 Dose: 5 mg Metoprolol Tartrate (Lopressor) 5 mg IVPUSH ONETIME ONE Stop: 12/24/17 19:58 Last Admin: 12/24/17 20:03 Dose: 5 mg Metoprolol Tartrate (Lopressor) 12.5 mg PO ONETIME ONE Stop: 12/24/17 22:01 Last Admin: 12/24/17 21:40 Dose: 12.5 mg Metoprolol Tartrate (Lopressor) 50 mg PO BID [facility] Last Admin: 12/27/17 08:56 Dose: 50 mg Metoprolol Tartrate (Lopressor) 50 mg PO DAILY [facility] Metoprolol Tartrate (Lopressor) 50 mg PO ONETIME ONE Stop: 12/26/17 08:46 Last Admin: 12/26/17 09:02 Dose: 50 mg Metoprolol Tartrate (Lopressor) 50 mg PO ONETIME ONE Stop: 12/27/17 09:31 Last Admin: 12/27/17 09:48 Dose: 50 mg Sodium Chloride (Syrex Flush) 5 ml FLUSH Q8HR PRN PRN Reason: Keep Vein Open - Exam Quality Assessment: Supplemental Oxygen, DVT Prophylaxis. No: Central Line/PICC , Urine Catheter, Skin Breakdown, Restraints General: Alert, Oriented HEENT: Pupils Equal, Pupils Reactive, EOMI, Mucous Membr. Moist/[place] Neck: Supple Lungs: Clear to Auscultation, Normal Respiratory Effort Cardiovascular: Regular Rate, No Murmurs, Irregular Rhythm GI/Abdominal Exam: Normal Bowel Sounds, Soft, Non-Tender, No Organomegaly, No Distention, No Abnormal Bruit, No Mass, Pelvis Stable Back Exam: Normal Inspection, Full Range of Motion Extremities: Normal Inspection, Normal Range of Motion, Non-Tender, No Pedal Edema, Normal Capillary Refill Skin: Warm, Dry, Intact Neurological: No New Focal Deficit Psy/Mental Status: Alert, Normal Affect, Normal Mood - Problem List Review Problem List Initiated/Reviewed/Updated: Yes - Assessment Assessment:: A-fib with RVR. CHF HTN Hyopkalemia Hyponatremia Pill dysphagia Concentrated urine - Plan Plan:: A-fib with RVR. I spoke to cardiology at [facility] as that is where she would want to be transferred and they recommended going up on metoprolol so will increase to 100 mg PO BID. If no change in 2-3 days may need referral for EP study and possible ablation. CHF Stable, no exacerbation. Will stop fluids and order BNP in am HTN. Stable, will monitor with increase in metoprolol. Hypokalemia. corrected Hyponatremia. Continue salt tabs. Stop IVF Pill dysphagia. Video swallow ordered. Concentrated urine. Continue PO antibiotics and await Urine C and S I also checked thyroid studies and they are normal. Troponins negative.
[2017-12-29 08:27] LABS: ANION GAP 13.6 mmol/L (5-15); CHLORIDE,CL 98 mmol/L (98-115); SODIUM,NA 132 mmol/L (136-145)
[2017-12-29] MEDS: Aspirin 81 MG Tab.Chew PO SCH (09:00)
[2017-12-29] MEDS: Potassium Chloride 10 MEQ Tab.ER PO SCH (09:00)
[2017-12-29] MEDS: Rivaroxaban 10 MG Tab PO SCH (09:03)
[2017-12-29] MEDS: Sodium Chloride 1 GM Tab PO SCH ×2 (09:03→21:18)
[2017-12-29] MEDS: amLODIPine 2.5 MG Tab PO SCH ×2 (09:03→21:18)
[2017-12-29] MEDS: Metoprolol Tartrate 50 MG Tab PO SCH ×2 (09:04→21:17)
[2017-12-29] MEDS: Ciprofloxacin 250 MG Tab PO SCH (09:04)
[2017-12-29] MEDS: Furosemide 20 MG Tab PO SCH (09:04)
--- NOTE | 2017-12-29 10:48 | PCM.PN ---
- General Info Date of Service: 12/29/17 Admission Dx/Problem (Free Text): Atrial fibrillation with RVR. Subjective Update: Pt reports she is feeling tired today. Pt denies any shortness of breath or chest pain. Pt ambulating without difficulty. Functional Status: Reports: Pain Controlled, Tolerating Diet, Ambulating, Urinating, Incentive Spirometry. Denies: New Symptoms - Review of Systems General: Reports: No Symptoms HEENT: Reports: No Symptoms Pulmonary: Reports: Wheezing Cardiovascular: Reports: No Symptoms Gastrointestinal: Reports: No Symptoms Genitourinary: Reports: No Symptoms Musculoskeletal: Reports: No Symptoms Skin: Reports: No Symptoms Neurological: Reports: No Symptoms Psychiatric: Reports: No Symptoms - Patient Data Vitals - Most Recent: Last Vital Signs Temp 36.3 C 12/29/17 06:55 Pulse 97 12/29/17 09:04 Resp 20 12/29/17 06:55 BP 120/76 12/29/17 09:04 Pulse Ox 96 12/29/17 06:55 Weight - Most Recent: 68.039 kg I&O - Last 24 Hours: Intake & Output 12/28/17 12/29/17 12/29/17 22:59 06:59 14:59 Intake Total 350 100 Balance 350 100 Lab Results Last 24 Hours: Laboratory Results - last 24 hr 12/29/17 12/29/17 Range/Units 07:45 07:45 WBC 4.8 L (5.0-10.0) 10^3/uL RBC 4.20 (3.80-5.50) 10^6/uL Hgb 14.4 (12.0-16.0) g/dL Hct 40.7 (37.0-47.0) % MCV 96.9 H (82.0-92.0) fL MCH 34.3 H (27.0-31.0) pg MCHC 35.4 (32.0-36.0) g/dL RDW 14.1 (11.5-14.5) % Plt Count 168 (150-400) 10^3/uL MPV 12.3 H (7.4-10.4) fL Immature Gran % (Auto) 0.4 (0.0-5.0) % Neut % (Auto) 77.1 H (50.0-70.0) % Lymph % (Auto) 12.9 L (20.0-40.0) % [place] % (Auto) 7.3 (2.0-8.0) % Eos % (Auto) 1.3 (1.0-3.0) % Baso % (Auto) 1.0 (0.0-1.0) % Immature Gran # (Auto) 0.02 (0.00-0.50) 10^3/uL Neut # (Auto) 3.70 (2.50-7.00) 10^3/uL Lymph # (Auto) 0.62 L (1.00-4.00) 10^3/uL [place]ance # (Auto) 0.35 (0.10-0.80) 10^3/uL Eos # (Auto) 0.06 L (0.10-0.30) 10^3/uL Baso # (Auto) 0.05 (0.00-0.10) 10^3/uL Sodium 132 L (136-145) mmol/L Potassium 3.9 (3.3-5.3) mmol/L Chloride 98 (98-115) mmol/L Carbon Dioxide 24.3 (21.0-32.0) mmol/L Anion Gap 13.6 (5-15) mmol/L BUN 8 (6-25) mg/dL Creatinine 0.57 (0.51-1.17) mg/dL Est Cr Clr Drug Dosing 74.92 mL/min Estimated GFR (MDRD) > 60 mL/min Glucose 120 mg/dL Calcium 8.5 L (8.7-10.3) mg/dL B-Natriuretic Peptide 299 H (0-100) pg/mL [facility] Results Last 24 Hours: Microbiology 12/27/17 12:58 Urine Culture - Final Urine, Bladder MIXED CAIO SUGGESTIVE OF CONTAMINATION. Med Orders - Current: Current Medications Albuterol (Ventolin Hfa) 0 gm INH BID PRN PRN Reason: Shortness of Breath Amlodipine Besylate (Norvasc) 2.5 mg PO BID [facility] Last Admin: 12/29/17 09:03 Dose: 2.5 mg Aspirin (Aspirin) 81 mg PO WITHBREAKFAST [facility] Last Admin: 12/29/17 09:00 Dose: 81 mg Atropine Sulfate (Atropine 0.1 Mg/Ml) 0 mg IVPUSH ASDIRECTED PRN PRN Reason: Heart Ciprofloxacin (Ciprofloxacin Hcl) 250 mg PO BID [facility] Last Admin: 12/29/17 09:04 Dose: 250 mg Epinephrine HCl (Epinephrine 1:10,000) 1 mg IVPUSH ASDIRECTED PRN PRN Reason: Heart Furosemide (Lasix) 20 mg PO DAILY [facility] Last Admin: 12/29/17 09:04 Dose: 20 mg Lidocaine HCl (Xylocaine 2%) 0 mg IVPUSH ASDIRECTED PRN PRN Reason: Heart Metoprolol Tartrate (Lopressor) 100 mg PO BID [facility] Last Admin: 12/29/17 09:04 Dose: 100 mg Nitroglycerin (Nitrostat) 0.4 mg SL ASDIRECTED PRN PRN Reason: Heart Potassium Chloride (Klor-Con 10) 20 meq PO WITHBREAKFAST [facility] Last Admin: 12/29/17 09:00 Dose: 20 meq Rivaroxaban (Xarelto) 20 mg PO DAILY [facility] Last Admin: 12/29/17 09:03 Dose: 20 mg Sodium Chloride (Syrex Flush) 5 ml FLUSH Q8HR PRN PRN Reason: Keep Vein Open Last Admin: 12/27/17 09:48 Dose: 5 ml Sodium Chloride (Sodium Chloride) 1 gm PO BID [facility] Last Admin: 12/29/17 09:03 Dose: 1 gm Discontinued Medications Amlodipine Besylate (Norvasc) 5 mg PO DAILY [facility] Last Admin: 12/25/17 12:47 Dose: Not Given Aspirin (Halfprin) 81 mg PO WITHBREAKFAST [facility] Last Admin: 12/27/17 08:56 Dose: 81 mg Potassium Chloride 20 meq/ (Premix) 100 mls @ 50 mls/hr IV ONETIME ONE Stop: 12/25/17 12:38 Last Admin: 12/25/17 11:24 Dose: 50 mls/hr Sodium Chloride (Normal Saline) Confirm Administered Dose 250 mls @ as directed .ROUTE .STK-MED ONE Stop: 12/25/17 11:16 Last Admin: 12/25/17 11:31 Dose: 50 mls/hr Magnesium Sulfate (Magnesium Sulfate 4 Gm In Water 100 Ml) 50 mls @ 100 mls/hr IV ONETIME ONE Stop: 12/25/17 13:14 Last Admin: 12/25/17 14:33 Dose: 100 mls/hr Potassium Chloride/Sodium Chloride (Normal Saline With 20 Meq Kcl) 1,000 mls @ 75 mls/hr IV ASDIRECTED [facility] Last Admin: 12/28/17 03:38 Dose: 75 mls/hr Metoprolol Tartrate (Lopressor) 5 mg IVPUSH ONETIME ONE Stop: 12/24/17 19:02 Last Admin: 12/24/17 19:20 Dose: 5 mg Metoprolol Tartrate (Lopressor) 5 mg IVPUSH ONETIME ONE Stop: 12/24/17 19:58 Last Admin: 12/24/17 20:03 Dose: 5 mg Metoprolol Tartrate (Lopressor) 12.5 mg PO ONETIME ONE Stop: 12/24/17 22:01 Last Admin: 12/24/17 21:40 Dose: 12.5 mg Metoprolol Tartrate (Lopressor) 50 mg PO BID [facility] Last Admin: 12/27/17 08:56 Dose: 50 mg Metoprolol Tartrate (Lopressor) 50 mg PO DAILY [facility] Metoprolol Tartrate (Lopressor) 50 mg PO ONETIME ONE Stop: 12/26/17 08:46 Last Admin: 12/26/17 09:02 Dose: 50 mg Metoprolol Tartrate (Lopressor) 50 mg PO ONETIME ONE Stop: 12/27/17 09:31 Last Admin: 12/27/17 09:48 Dose: 50 mg Sodium Chloride (Syrex Flush) 5 ml FLUSH Q8HR PRN PRN Reason: Keep Vein Open - Exam Quality Assessment: Supplemental Oxygen General: Alert, Oriented HEENT: Pupils Equal, Pupils Reactive, EOMI, Mucous Membr. Moist/[place] Neck: Supple Lungs: Normal Respiratory Effort, Wheezing Cardiovascular: Irregular Rhythm. No: Tachycardia GI/Abdominal Exam: Normal Bowel Sounds, Soft, Non-Tender, No Organomegaly, No Distention, No Abnormal Bruit, No Mass, Pelvis Stable (Female) Exam: Normal External Exam, Normal Speculum Exam, Normal Bimanual Exam Back Exam: Normal Inspection, Full Range of Motion Extremities: Normal Inspection, Normal Range of Motion, Non-Tender, No Pedal Edema, Normal Capillary Refill Skin: Warm, Dry, Intact Wound/Incisions: Healing Well Neurological: No New Focal Deficit Psy/Mental Status: Alert, Normal Affect, Normal Mood - Problem List Review Problem List Initiated/Reviewed/Updated: Yes - Assessment Assessment:: A-fib with RVR. CHF HTN Hyopkalemia Hyponatremia Pill dysphagia Concentrated urine - Plan Plan:: A-fib with RVR. I spoke to cardiology at [facility] as that is where she would want to be transferred and they recommended going up on metoprolol so will increase to 100 mg PO BID. If no change in 2-3 days may need referral for EP study and possible ablation. CHF Stable, no exacerbation. Will stop fluids and order BNP in am HTN. Stable, will monitor with increase in metoprolol. No hypotension or lightheadedness from increased metoprolol dosage Hypokalemia. corrected Hyponatremia. Continue salt tabs. Stop IVF Pill dysphagia. Video swallow ordered. Concentrated urine. Appears to be contaminant in urine will stop antibiotics. I also checked thyroid studies and they are normal. Troponins negative.
[2017-12-30 08:13] LABS: ANION GAP 16.9 mmol/L (5-15); CHLORIDE,CL 98 mmol/L (98-115); SODIUM,NA 134 mmol/L (136-145)
[2017-12-30] MEDS: Aspirin 81 MG Tab.Chew PO SCH (08:42)
[2017-12-30] MEDS: Furosemide 20 MG Tab PO SCH (08:42)
[2017-12-30] MEDS: Sodium Chloride 1 GM Tab PO SCH (08:42)
[2017-12-30] MEDS: Potassium Chloride 10 MEQ Tab.ER PO SCH (08:42)
[2017-12-30] MEDS: amLODIPine 2.5 MG Tab PO SCH (08:44)
--- NOTE | 2017-12-30 08:56 | PCM.PN ---
- General Info Date of Service: 12/30/17 Admission Dx/Problem (Free Text): Atrial fibrillation with RVR. - Review of Systems Systems Review Comment:: Vickie is seen today on inpatient rounds. She was admitted on 12/24/17 in a-fib with RVR. She has a hx of a-fib but had converted to NSR on her own over a year ago. It is unclear how long she has been back in a-fib. She was on metoprolol 50 mg PO BID as an outpatient and this has been increased to 100 mg PO BID without much change in her HR. At rest she is 80-110's but with activity she is in the 130-140's. She does not feel dizzy or lightheaded with this heart rate and has actually been walking the halls. She feels better today than she did when she came in. Troponins have been negative. Last TTE I could find was from 2014 with an EF of 55-65%. Urine was questionable for a UTI but culture is mixed caio and so antibiotics were stopped (was on ciprofloxacin 250 mg PO BID). She also had some gentle fluids started (NS with 20 KCl at 75 cc per hour) but her BNP increased and she became slightly more SOB and so this was discontinued. She was started on Xarelto on 12/27/17 due to [id number] score of 7. She has been tolerating this. Her sodium is improving. BP is stable. - Patient Data Vitals - Most Recent: Last Vital Signs Temp 96.9 F 12/30/17 06:49 Pulse 86 12/30/17 08:45 Resp 20 12/30/17 06:49 BP 150/93 H 12/30/17 08:45 Pulse Ox 96 12/30/17 06:49 Weight - Most Recent: 150 lb I&O - Last 24 Hours: Intake & Output 12/29/17 12/30/17 12/30/17 22:59 06:59 14:59 Intake Total 350 0 Balance 350 0 Lab Results Last 24 Hours: Laboratory Results - last 24 hr 12/29/17 12/30/17 12/30/17 Range/Units 07:45 07:30 07:30 WBC 4.4 L (5.0-10.0) 10^3/uL RBC 4.24 (3.80-5.50) 10^6/uL Hgb 14.2 (12.0-16.0) g/dL Hct 41.1 (37.0-47.0) % MCV 96.9 H (82.0-92.0) fL MCH 33.5 H (27.0-31.0) pg MCHC 34.5 (32.0-36.0) g/dL RDW 14.1 (11.5-14.5) % Plt Count 197 (150-400) 10^3/uL MPV 12.2 H (7.4-10.4) fL Immature Gran % (Auto) 0.9 (0.0-5.0) % Neut % (Auto) 74.5 H (50.0-70.0) % Lymph % (Auto) 13.7 L (20.0-40.0) % [place] % (Auto) 8.2 H (2.0-8.0) % Eos % (Auto) 1.8 (1.0-3.0) % Baso % (Auto) 0.9 (0.0-1.0) % Immature Gran # (Auto) 0.04 (0.00-0.50) 10^3/uL Neut # (Auto) 3.25 (2.50-7.00) 10^3/uL Lymph # (Auto) 0.60 L (1.00-4.00) 10^3/uL [place] # (Auto) 0.36 (0.10-0.80) 10^3/uL Eos # (Auto) 0.08 L (0.10-0.30) 10^3/uL Baso # (Auto) 0.04 (0.00-0.10) 10^3/uL Sodium 134 L (136-145) mmol/L Potassium 4.2 (3.3-5.3) mmol/L Chloride 98 (98-115) mmol/L Carbon Dioxide 23.3 (21.0-32.0) mmol/L Anion Gap 16.9 H (5-15) mmol/L BUN 7 (6-25) mg/dL Creatinine 0.57 (0.51-1.17) mg/dL Est Cr Clr Drug Dosing 74.92 mL/min Estimated GFR (MDRD) > 60 mL/min Glucose 98 mg/dL Calcium 8.4 L (8.7-10.3) mg/dL B-Natriuretic Peptide 299 H 292 H (0-100) pg/mL [place] Results Last 24 Hours: Microbiology 12/27/17 12:58 Urine Culture - Final Urine, Bladder MIXED CAIO SUGGESTIVE OF CONTAMINATION. Med Orders - Current: Current Medications Albuterol (Ventolin Hfa) 0 gm INH BID PRN PRN Reason: Shortness of Breath Amlodipine Besylate (Norvasc) 2.5 mg PO BID [facility] Last Admin: 12/30/17 08:44 Dose: 2.5 mg Aspirin (Aspirin) 81 mg PO WITHBREAKFAST [facility] Last Admin: 12/30/17 08:42 Dose: 81 mg Atropine Sulfate (Atropine 0.1 Mg/Ml) 0 mg IVPUSH ASDIRECTED PRN PRN Reason: Heart Epinephrine HCl (Epinephrine 1:10,000) 1 mg IVPUSH ASDIRECTED PRN PRN Reason: Heart Furosemide (Lasix) 20 mg PO DAILY [facility] Last Admin: 12/30/17 08:42 Dose: 20 mg Lidocaine HCl (Xylocaine 2%) 0 mg IVPUSH ASDIRECTED PRN PRN Reason: Heart Metoprolol Tartrate (Lopressor) 150 mg PO BID [facility] Last Admin: 12/30/17 08:45 Dose: 150 mg Nitroglycerin (Nitrostat) 0.4 mg SL ASDIRECTED PRN PRN Reason: Heart Potassium Chloride (Klor-Con 10) 20 meq PO WITHBREAKFAST [facility] Last Admin: 12/30/17 08:42 Dose: 20 meq Rivaroxaban (Xarelto) 20 mg PO DAILY [facility] Last Admin: 12/29/17 09:03 Dose: 20 mg Sodium Chloride (Syrex Flush) 5 ml FLUSH Q8HR PRN PRN Reason: Keep Vein Open Last Admin: 12/27/17 09:48 Dose: 5 ml Sodium Chloride (Sodium Chloride) 1 gm PO BID [facility] Last Admin: 12/30/17 08:42 Dose: 1 gm Discontinued Medications Amlodipine Besylate (Norvasc) 5 mg PO DAILY [facility] Last Admin: 12/25/17 12:47 Dose: Not Given Aspirin (Halfprin) 81 mg PO WITHBREAKFAST [facility] Last Admin: 12/27/17 08:56 Dose: 81 mg Ciprofloxacin (Ciprofloxacin Hcl) 250 mg PO BID [facility] Last Admin: 12/29/17 09:04 Dose: 250 mg Potassium Chloride 20 meq/ (Premix) 100 mls @ 50 mls/hr IV ONETIME ONE Stop: 12/25/17 12:38 Last Admin: 12/25/17 11:24 Dose: 50 mls/hr Sodium Chloride (Normal Saline) Confirm Administered Dose 250 mls @ as directed .ROUTE .STK-MED ONE Stop: 12/25/17 11:16 Last Admin: 12/25/17 11:31 Dose: 50 mls/hr Magnesium Sulfate (Magnesium Sulfate 4 Gm In Water 100 Ml) 50 mls @ 100 mls/hr IV ONETIME ONE Stop: 12/25/17 13:14 Last Admin: 12/25/17 14:33 Dose: 100 mls/hr Potassium Chloride/Sodium Chloride (Normal Saline With 20 Meq Kcl) 1,000 mls @ 75 mls/hr IV ASDIRECTED [facility] Last Admin: 12/28/17 03:38 Dose: 75 mls/hr Metoprolol Tartrate (Lopressor) 5 mg IVPUSH ONETIME ONE Stop: 12/24/17 19:02 Last Admin: 12/24/17 19:20 Dose: 5 mg Metoprolol Tartrate (Lopressor) 5 mg IVPUSH ONETIME ONE Stop: 12/24/17 19:58 Last Admin: 12/24/17 20:03 Dose: 5 mg Metoprolol Tartrate (Lopressor) 12.5 mg PO ONETIME ONE Stop: 12/24/17 22:01 Last Admin: 12/24/17 21:40 Dose: 12.5 mg Metoprolol Tartrate (Lopressor) 50 mg PO BID [facility] Last Admin: 12/27/17 08:56 Dose: 50 mg Metoprolol Tartrate (Lopressor) 50 mg PO DAILY [facility] Metoprolol Tartrate (Lopressor) 50 mg PO ONETIME ONE Stop: 12/26/17 08:46 Last Admin: 12/26/17 09:02 Dose: 50 mg Metoprolol Tartrate (Lopressor) 50 mg PO ONETIME ONE Stop: 12/27/17 09:31 Last Admin: 12/27/17 09:48 Dose: 50 mg Metoprolol Tartrate (Lopressor) 100 mg PO BID [facility] Last Admin: 12/29/17 21:17 Dose: 100 mg Sodium Chloride (Syrex Flush) 5 ml FLUSH Q8HR PRN PRN Reason: Keep Vein Open - Exam General: Alert, Oriented, Cooperative, No Acute Distress Lungs: Clear to Auscultation Cardiovascular: No Murmurs, Irregular Rhythm, Tachycardia GI/Abdominal Exam: Normal Bowel Sounds Extremities: Normal Inspection, No Pedal Edema - Problem List & Annotations (1) Hypokalemia SNOMED Code(s): 15255528 Code(s): E87.6 - HYPOKALEMIA Status: Resolved Current Visit: Yes (2) Pill dysphagia SNOMED Code(s): 784361988 Code(s): R13.10 - DYSPHAGIA, UNSPECIFIED Status: Acute Current Visit: Yes (3) Atrial fibrillation with rapid ventricular response SNOMED Code(s): 067642388291546 Code(s): I48.91 - UNSPECIFIED ATRIAL FIBRILLATION Status: Acute Current Visit: Yes (4) Congestive heart failure SNOMED Code(s): 72242557 Code(s): I50.9 - HEART FAILURE, UNSPECIFIED Status: Chronic Current Visit : No (5) Hypertension SNOMED Code(s): 19989750 Code(s): I10 - ESSENTIAL (PRIMARY) HYPERTENSION Status: Chronic Current Visit: No (6) Hyponatremia SNOMED Code(s): 71021045 Code(s): E87.1 - HYPO-OSMOLALITY AND HYPONATREMIA Status: Acute Current Visit: Yes - Problem List Review Problem List Initiated/Reviewed/Updated: Yes - My Orders Last 24 Hours: My Active Orders 12/30/17 09:00 Metoprolol Tartrate [Lopressor] 150 mg PO BID 12/31/17 05:11 B-TYPE NATRIURETIC PEPTIDE,BNP [CHEM] AM BASIC METABOLIC PANEL,BMP [CHEM] AM CBC WITH AUTO DIFF [HEME] AM 01/01/18 05:11 B-TYPE NATRIURETIC PEPTIDE,BNP [CHEM] AM BASIC METABOLIC PANEL,BMP [CHEM] AM CBC WITH AUTO DIFF [HEME] AM - Assessment Assessment:: A-fib with RVR. CHF HTN Hyopkalemia Hyponatremia Pill dysphagia - Plan Plan:: A-fib with RVR. Increase metoprolol to 150 mg PO BID and also can consider increasing amlodipine to 5 mg PO BID from 2.5 mg PO BID. CHF Stable, no exacerbation. HTN. Stable, will monitor with increase in metoprolol. No hypotension or lightheadedness from increased metoprolol dosage. Hypokalemia. Resolved Hyponatremia. Continue salt tabs. Improving. Pill dysphagia. Video swallow ordered. I also checked thyroid studies and they are normal. Troponins negative. I have a call out to cardiology to see what they suggest.
[2017-12-30] MEDS ORDERED: Metoprolol Tartrate 50 MG Tab PO SCH (09:00)
[2017-12-30] MEDS: Rivaroxaban 10 MG Tab PO SCH (09:13)
--- NOTE | 2017-12-30 11:09 | PCM.DCSUM1 ---
Discharge Summary - Hospital Course Free Text/Narrative:: Vickie was admitted 12/24/17 - 12/30/17 for a-fib with RVR. She presented to the ER on 12/24 not feeling well. Her [id number]-ter was checking on her and noted her pulse to be in the 140's which was confirmed on temeletry. Troponins were negative x 4. CXR was NAD, thyroid studies normal, normal WBC and no sign of infection. UA dirty and culture is mixed selene. She was treated with ciprofloxacin 250 mg PO BID for 2 days until culture results were back showing mixed selene. At home she is on amlodipine 2.5 mg PO BID and metoprolol 50 mg PO BID. Her metoprolol has been increased to 150 mg PO BID and she still has a HR in the 80-110's at rest, at times up to 120's and with exertion is up to 130- 140's. She is completely asymptomatic with this. I did try some gentle fluids in the event she was dehydrated (labs did not indicate this). She was on normals saline with 20 mEq KCl at 75 cc per hour but her BNP did climb slightly and she became more SOB and so this was discontinued. She was also noted to have hyponatremia and has been on salt tabs BID and this has improved. She was hypokalemic but this has been corrected. She has an allergy to diltiazem and an intolerance to digoxin and amiodarone. She has a hx of a-fib which spontaneously converted to NSR and has been in NSR for quite some time prior to this admission. Last Echo I can find from 2014 shows EF of 55-65%. She is also having some pill dysphagia, swallow eval was to be performed today but will no longer happen due to transfer to higher level of care for cardiology consultation. Her [id number] score is 7 and she was started on Xarelto 20 mg PO daily on . Question if she will need EP study to further treat her a-fib. Vickie is very active at baseline. She has a hx of intermitted asthma and restrictive lung disease which may limit how high her dose of metoprolol can be. Discharge diagnoses: 1. A-fib with RVR 2. HFpEF, stable. 3. Restrictive lung disease, chronic, stable. 4. Hypertension, chronic, stable. 5. Hypokalemia, resolved. 6. Hyponatremia, improving. Diagnosis: Stroke: No Modified Tasia Scale: No Signif.Disability Despite Sympt.Able to Carry Out Usual Act./Duties Modified Tasia Scale Score: 1 - Discharge Data Discharge Date: 12/30/17 Discharge Disposition: DC/Tfer to Acute Hospital 02 Condition: Good - Discharge Diagnosis/Problem(s) (1) Hypokalemia SNOMED Code(s): 24738700 ICD Code: E87.6 - HYPOKALEMIA Status: Resolved Current Visit: Yes (2) Pill dysphagia SNOMED Code(s): 381141512 ICD Code: R13.10 - DYSPHAGIA, UNSPECIFIED Status: Acute Current Visit: Yes (3) Atrial fibrillation with rapid ventricular response SNOMED Code(s): 604140539915895 ICD Code: I48.91 - UNSPECIFIED ATRIAL FIBRILLATION Status: Acute Current Visit: Yes (4) Congestive heart failure SNOMED Code(s): 85409101 ICD Code: I50.9 - HEART FAILURE, UNSPECIFIED Status: Chronic Current Visit: No (5) Hypertension SNOMED Code(s): 31044027 ICD Code: I10 - ESSENTIAL (PRIMARY) HYPERTENSION Status: Chronic Current Visit: No (6) Hyponatremia SNOMED Code(s): 95948478 ICD Code: E87.1 - HYPO-OSMOLALITY AND HYPONATREMIA Status: Acute Current Visit: Yes - Patient Instructions Diet: Usual Diet as Tolerated Activity: As Tolerated - Discharge Plan *PRESCRIPTION DRUG MONITORING PROGRAM REVIEWED*: Not Applicable *COPY OF PRESCRIPTION DRUG MONITORING REPORT IN PATIENT DANYELLE: Not Applicable Home Medications: Home Meds amLODIPine Besylate [Norvasc] 5 mg PO DAILY 06/06/15 [History] Potassium Chloride 20 meq PO BID #30 tablet.er 07/02/15 [Rx] Albuterol [IJD: Ventolin HFA] 2 puff INH .TWICE DAILY PRN #18 gm 04/19/16 [Rx] Furosemide 20 mg PO BID 04/19/16 [History] Metoprolol Tartrate [Lopressor] 150 mg PO BID tablet 12/30/17 [Rx] Rivaroxaban [Xarelto] 20 mg PO DAILY tablet 12/30/17 [Rx] Forms: ED Department Discharge, Interfacility Transfer EMTALA Referrals: Sharon Hernandez MD [Primary Care Provider] - - Discharge Summary/Plan Comment DC Time >30 min.: Yes - General Info Date of Service: 12/30/17 Admission Dx/Problem (Free Text: Atrial fibrillation with RVR. Subjective Update: Pt reports she is feeling tired today. Pt denies any shortness of breath or chest pain. Pt ambulating without difficulty. - Patient Data Vitals - Most Recent: Last Vital Signs Temp 97.1 F 12/30/17 10:08 Pulse 95 12/30/17 10:08 Resp 20 12/30/17 10:08 BP 107/70 12/30/17 10:08 Pulse Ox 96 12/30/17 10:08 Weight - Most Recent: 150 lb I&O - Last 24 hours: Intake & Output 12/29/17 12/30/17 12/30/17 22:59 06:59 14:59 Intake Total 350 0 Balance 350 0 Lab Results - Last 24 hrs: Laboratory Results - last 24 hr 12/30/17 12/30/17 Range/Units 07:30 07:30 WBC 4.4 L (5.0-10.0) 10^3/uL RBC 4.24 (3.80-5.50) 10^6/uL Hgb 14.2 (12.0-16.0) g/dL Hct 41.1 (37.0-47.0) % MCV 96.9 H (82.0-92.0) fL MCH 33.5 H (27.0-31.0) pg MCHC 34.5 (32.0-36.0) g/dL RDW 14.1 (11.5-14.5) % Plt Count 197 (150-400) 10^3/uL MPV 12.2 H (7.4-10.4) fL Immature Gran % (Auto) 0.9 (0.0-5.0) % Neut % (Auto) 74.5 H (50.0-70.0) % Lymph % (Auto) 13.7 L (20.0-40.0) % [place] % (Auto) 8.2 H (2.0-8.0) % Eos % (Auto) 1.8 (1.0-3.0) % Baso % (Auto) 0.9 (0.0-1.0) % Immature Gran # (Auto) 0.04 (0.00-0.50) 10^3/uL Neut # (Auto) 3.25 (2.50-7.00) 10^3/uL Lymph # (Auto) 0.60 L (1.00-4.00) 10^3/uL [place] # (Auto) 0.36 (0.10-0.80) 10^3/uL Eos # (Auto) 0.08 L (0.10-0.30) 10^3/uL Baso # (Auto) 0.04 (0.00-0.10) 10^3/uL Sodium 134 L (136-145) mmol/L Potassium 4.2 (3.3-5.3) mmol/L Chloride 98 (98-115) mmol/L Carbon Dioxide 23.3 (21.0-32.0) mmol/L Anion Gap 16.9 H (5-15) mmol/L BUN 7 (6-25) mg/dL Creatinine 0.57 (0.51-1.17) mg/dL Est Cr Clr Drug Dosing 74.92 mL/min Estimated GFR (MDRD) > 60 mL/min Glucose 98 mg/dL Calcium 8.4 L (8.7-10.3) mg/dL B-Natriuretic Peptide 292 H (0-100) pg/mL MICHELLE Results - Last 24 hrs: Microbiology 12/27/17 12:58 Urine Culture - Final Urine, Bladder MIXED SELENE SUGGESTIVE OF CONTAMINATION. Med Orders - Current: Current Medications Albuterol (Ventolin Hfa) 0 gm INH BID PRN PRN Reason: Shortness of Breath Amlodipine Besylate (Norvasc) 2.5 mg PO BID [facility] Last Admin: 12/30/17 08:44 Dose: 2.5 mg Aspirin (Aspirin) 81 mg PO WITHBREAKFAST [facility] Last Admin: 12/30/17 08:42 Dose: 81 mg Atropine Sulfate (Atropine 0.1 Mg/Ml) 0 mg IVPUSH ASDIRECTED PRN PRN Reason: Heart Epinephrine HCl (Epinephrine 1:10,000) 1 mg IVPUSH ASDIRECTED PRN PRN Reason: Heart Furosemide (Lasix) 20 mg PO DAILY [facility] Last Admin: 12/30/17 08:42 Dose: 20 mg Lidocaine HCl (Xylocaine 2%) 0 mg IVPUSH ASDIRECTED PRN PRN Reason: Heart Metoprolol Tartrate (Lopressor) 150 mg PO BID [facility] Last Admin: 12/30/17 08:45 Dose: 150 mg Nitroglycerin (Nitrostat) 0.4 mg SL ASDIRECTED PRN PRN Reason: Heart Potassium Chloride (Klor-Con 10) 20 meq PO WITHBREAKFAST [facility] Last Admin: 12/30/17 08:42 Dose: 20 meq Rivaroxaban (Xarelto) 20 mg PO DAILY [facility] Last Admin: 12/30/17 09:13 Dose: 20 mg Sodium Chloride (Syrex Flush) 5 ml FLUSH Q8HR PRN PRN Reason: Keep Vein Open Last Admin: 12/27/17 09:48 Dose: 5 ml Sodium Chloride (Sodium Chloride) 1 gm PO BID [facility] Last Admin: 12/30/17 08:42 Dose: 1 gm Discontinued Medications Amlodipine Besylate (Norvasc) 5 mg PO DAILY [facility] Last Admin: 12/25/17 12:47 Dose: Not Given Aspirin (Halfprin) 81 mg PO WITHBREAKFAST [facility] Last Admin: 12/27/17 08:56 Dose: 81 mg Ciprofloxacin (Ciprofloxacin Hcl) 250 mg PO BID [facility] Last Admin: 12/29/17 09:04 Dose: 250 mg Potassium Chloride 20 meq/ (Premix) 100 mls @ 50 mls/hr IV ONETIME ONE Stop: 12/25/17 12:38 Last Admin: 12/25/17 11:24 Dose: 50 mls/hr Sodium Chloride (Normal Saline) Confirm Administered Dose 250 mls @ as directed .ROUTE .STK-MED ONE Stop: 12/25/17 11:16 Last Admin: 12/25/17 11:31 Dose: 50 mls/hr Magnesium Sulfate (Magnesium Sulfate 4 Gm In Water 100 Ml) 50 mls @ 100 mls/hr IV ONETIME ONE Stop: 12/25/17 13:14 Last Admin: 12/25/17 14:33 Dose: 100 mls/hr Potassium Chloride/Sodium Chloride (Normal Saline With 20 Meq Kcl) 1,000 mls @ 75 mls/hr IV ASDIRECTED [facility] Last Admin: 12/28/17 03:38 Dose: 75 mls/hr Metoprolol Tartrate (Lopressor) 5 mg IVPUSH ONETIME ONE Stop: 12/24/17 19:02 Last Admin: 12/24/17 19:20 Dose: 5 mg Metoprolol Tartrate (Lopressor) 5 mg IVPUSH ONETIME ONE Stop: 12/24/17 19:58 Last Admin: 12/24/17 20:03 Dose: 5 mg Metoprolol Tartrate (Lopressor) 12.5 mg PO ONETIME ONE Stop: 12/24/17 22:01 Last Admin: 12/24/17 21:40 Dose: 12.5 mg Metoprolol Tartrate (Lopressor) 50 mg PO BID [facility] Last Admin: 12/27/17 08:56 Dose: 50 mg Metoprolol Tartrate (Lopressor) 50 mg PO DAILY [facility] Metoprolol Tartrate (Lopressor) 50 mg PO ONETIME ONE Stop: 12/26/17 08:46 Last Admin: 12/26/17 09:02 Dose: 50 mg Metoprolol Tartrate (Lopressor) 50 mg PO ONETIME ONE Stop: 12/27/17 09:31 Last Admin: 12/27/17 09:48 Dose: 50 mg Metoprolol Tartrate (Lopressor) 100 mg PO BID [facility] Last Admin: 12/29/17 21:17 Dose: 100 mg Sodium Chloride (Syrex Flush) 5 ml FLUSH Q8HR PRN PRN Reason: Keep Vein Open - Exam General: Reports: Alert, Oriented, Cooperative, No Acute Distress Lungs: Reports: Clear to Auscultation, Normal Respiratory Effort Cardiovascular: Reports: No Murmurs, Irregular Rhythm, Tachycardia
[2017-12-30 14:09] VITALS: BP 131/94
== END 2017-12-30 15:15 | DRG 309 ==
LOC: KA.ED 18:42 → KA.MS 19:46
PROVIDERS: ADMIT Physician Assistant Medical; ATTEND Internal Medicine
DX: I48.91 Unspecified atrial fibrillation (principal); E87.1 Hypo-osmolality and hyponatremia; I50.32 Chronic diastolic (congestive) heart failure; I50.9 Heart failure, unspecified; E78.00 Pure hypercholesterolemia, unspecified; I11.0 Hypertensive heart disease with heart failure; E87.6 Hypokalemia; E83.42 Hypomagnesemia; J44.9 Chronic obstructive pulmonary disease, unspecified; H54.7 Unspecified visual loss; H35.30 Unspecified macular degeneration; R13.19 Other dysphagia; H91.90 Unspecified hearing loss, unspecified ear; G89.29 Other chronic pain; M54.9 Dorsalgia, unspecified; Z87.01 Personal history of pneumonia (recurrent); Z79.899 Other long term (current) drug therapy; Z88.8 Allergy status to other drugs, medicaments and biological substances
CPT/HCPCS: 36415; 71046; 80048; 80053; 81001; 82550; 82553; 83735; 83880; 84439; 84443; 84484; 85025; 87086; 93005; 96374; 96376; 99285; A9270-GY; J3475; J3480; J3490; J7050

== ENCOUNTER 2018-08-22 14:01 | Observation (INO) | payer MEDICARE, OTHER ==
[2018-08-22 14:48] LABS: BASE EXCESS ARTERIAL -2 mmol/L (-2-3); BICARBONATE,ARTERIAL 23.4 mmol/L (22-26); O2 DELIVERY DEVICE ROOM AIR; O2 SATURATION ARTERIAL 94 % (95-98); PCO2 ARTERIAL 41 mmHG (35-45); PO2 ARTERIAL 75 mmHG (80-105)
[2018-08-22 15:22] LABS: CHLORIDE,CL 96 mmol/L (98-115); SODIUM,NA 135 mmol/L (136-145)
[2018-08-22] MEDS ORDERED: Albuterol/Ipratropium 3.0-0.5 MG/3 ML Neb Soln NEB PRN ×2 (16:25→16:33)
[2018-08-22] MEDS ORDERED: Levofloxacin/Dextrose 5%-Water 500 MG in Premix Bag 1 BAG IV ONE (16:30)
[2018-08-22] MEDS ORDERED: LORazepam 0.5 MG Tab PO PRN (16:33)
[2018-08-22] MEDS: methylPREDNISolone Sodium Succinate 125 MG/2 ML SDV IVPUSH SCH (17:45)
[2018-08-22] MEDS ORDERED: Sodium Chloride 0.9% 100 ML IV SCH (17:45)
[2018-08-22] MEDS: Sodium Chloride 0.9% 10 ML Syringe FLUSH PRN (17:46)
[2018-08-22] MEDS: Albuterol/Ipratropium 3.0-0.5 MG/3 ML Neb Soln NEB SCH ×2 (19:19→21:03)
[2018-08-22] MEDS: Fluticasone Propionate 110 MCG/Puff 12 GM Inhaler INH SCH (20:07)
[2018-08-22] MEDS: Furosemide 20 MG Tab PO SCH (20:11)
[2018-08-22] MEDS: Potassium Chloride 20 MEQ Tab.ER PO SCH (20:11)
[2018-08-22] MEDS: Metoprolol Tartrate 50 MG Tab PO SCH (20:11)
[2018-08-22] MEDS: Codeine/guaiFENesin 100-10 MG/5 ML Syrup 5 ML Cup PO PRN (20:16)
[2018-08-22] MEDS ORDERED: Non-Formulary Medication 1 Each (Budesonide/Formoterol 2 PUFF) PO SCH (21:00)
[2018-08-22] MEDS ORDERED: Thiamine 100 MG Tab PO SCH (21:00)
[2018-08-22] MEDS ORDERED: Folic Acid 1 MG Tab PO SCH (21:00)
[2018-08-23] MEDS: methylPREDNISolone Sodium Succinate 125 MG/2 ML SDV IVPUSH SCH ×2 (00:03→07:45)
[2018-08-23] MEDS: Sodium Chloride 0.9% 10 ML Syringe FLUSH PRN ×3 (00:07→12:03)
[2018-08-23] MEDS: Albuterol/Ipratropium 3.0-0.5 MG/3 ML Neb Soln NEB SCH ×4 (01:32→12:09)
[2018-08-23] MEDS: Codeine/guaiFENesin 100-10 MG/5 ML Syrup 5 ML Cup PO PRN (03:03)
[2018-08-23 07:43] LABS: ANION GAP 13.6 mmol/L (5-15); CHLORIDE,CL 96 mmol/L (98-115); SODIUM,NA 132 mmol/L (136-145)
[2018-08-23] MEDS: Metoprolol Tartrate 50 MG Tab PO SCH (07:59)
[2018-08-23] MEDS: Potassium Chloride 20 MEQ Tab.ER PO SCH (08:00)
[2018-08-23] MEDS: Furosemide 20 MG Tab PO SCH (08:00)
[2018-08-23] MEDS ORDERED: Rivaroxaban 10 MG Tab PO SCH (09:00)
[2018-08-23] MEDS ORDERED: amLODIPine 5 MG Tab PO SCH (09:00)
[2018-08-23] MEDS: Fluticasone Propionate 110 MCG/Puff 12 GM Inhaler INH SCH (09:20)
[2018-08-23 11:33] VITALS: BP 145/88
[2018-08-23] MEDS ORDERED: Levofloxacin/Dextrose 5%-Water 250 MG in Premix Bag 1 BAG IV SCH (17:00)
--- NOTE | 2018-08-26 08:57 | DISCH ---
This is an 78-year-old female who was hospitalized overnight for a COPD exacerbation. She was treated with IV Solu-Medrol and has received 3 doses of this. She was also treated with Levaquin for acute bronchitis. Chest x-ray on admission showed hyperinflated lungs, but clear. There was a hiatal hernia, moderate in size. The heart was borderline enlarged without evidence of congestive heart failure. It was noted on admission that her blood alcohol level was 163 with a normal range being 0-3. The patient adamantly denied any alcohol consumption. The subject was discussed with her on 3 different occasions with denial each time. The family has been involved with these conversations and is concerned about her alcohol consumption and plan to intervene on a family level this weekend when everybody is home. The patient has made a dramatic improvement in her respiratory status since admission. PERTINENT LAB DATA: Today includes a WBC which is low at 2.92. It was low yesterday on admission at 3.73 as well. Hemoglobin is normal at 14.9. Sodium is somewhat low at 132, chloride 96. BUN and creatinine are normal at 18 and 0.85 with a GFR greater than 60. AST improved from 103 to 81. Total bilirubin was slightly high at 1.3. Alkaline phosphatase decreased from 138 to 125. As mentioned prior, her blood alcohol level on admission was 163 with a normal range being 0-3. The patient is anxious to go home today. She did not exhibit any signs of alcohol withdrawal while in the hospital. She did receive one dose of lorazepam at 5 a.m. this morning. PHYSICAL EXAMINATION: VITAL SIGNS: On exam, temperature is 97.6, pulse 100, respirations 18, blood pressure 145/88, O2 saturation 93% on room air. SKIN: Warm and dry to touch. CARDIAC: S1, S2 to be normal. The rhythm is irregularly irregular with no murmur, click, or gallop. LUNGS: Occasional expiratory wheezes, where yesterday she had coarse rhonchi, inspiratory and expiratory wheezes, as well as some fine rales in the bases. ABDOMEN: Soft, nontender. Bowel sounds present in all 4 quadrants. EXTREMITIES: There is no pedal edema. IMPRESSION: 1. Chronic obstructive pulmonary disease exacerbation, markedly improved. She will go home on Levaquin as well as a tapering dose of prednisone. 2. Elevated blood alcohol level. The patient did not exhibit any withdrawal signs in the hospital. She adamantly denied any recent alcohol usage and states that she never drinks during the day. Her first drink is at 9 p.m. at night. Apparently, there has been some family concern regarding the patient's alcohol consumption and they are planning an intervention this weekend when all of her family is home for [place]. 3. History of atrial fibrillation, stable. She is taking metoprolol and is on long-term anticoagulation therapy with Xarelto. 4. She has congestive heart failure, however, this has not been an issue during this hospitalization. She does take furosemide. 5. She has a history of hypokalemia, undoubtedly secondary to diuretic therapy and is taking a potassium supplement. She will continue Symbicort. I have also urged her to use DuoNebs by nebulizer. She does have a prescription for this at home. She will follow up with me next week in the clinic, sooner if necessary. /[id number]/MODL
== END 2018-08-23 13:16 | disposition home or self-care (01) ==
LOC: KA.OC 14:01 → KA.MS 15:40
DX: J44.1 Chronic obstructive pulmonary disease with (acute) exacerbation (principal); J44.0 Chronic obstructive pulmonary disease with (acute) lower respiratory infection; J20.9 Acute bronchitis, unspecified; F80.89 Other developmental disorders of speech and language; E87.6 Hypokalemia; K44.9 Diaphragmatic hernia without obstruction or gangrene; I48.91 Unspecified atrial fibrillation; R78.0 Finding of alcohol in blood; Y90.6 Blood alcohol level of 120-199 mg/100 ml; I11.0 Hypertensive heart disease with heart failure; I50.9 Heart failure, unspecified; R79.89 Other specified abnormal findings of blood chemistry; Z88.5 Allergy status to narcotic agent; Z88.6 Allergy status to analgesic agent; Z79.01 Long term (current) use of anticoagulants; Z79.51 Long term (current) use of inhaled steroids; Z79.899 Other long term (current) drug therapy
CPT/HCPCS: 36415; 36600; 71046; 80053; 82803; 85025; 94640; 96361; 96365; 96366; A9270-GY; G0378; G0379; G0480; J1956; J2930; J7050; J7620-GY

== ENCOUNTER 2018-10-09 14:58 | Inpatient (IN) | payer MEDICARE, OTHER ==
[2018-10-09] MEDS ORDERED: Atropine 0.1 MG/ML 10 ML Syringe IVPUSH PRN (15:57)
[2018-10-09] MEDS ORDERED: EPINEPHrine 1:10,000 1 MG/10 ML Syringe IVPUSH PRN (15:57)
[2018-10-09] MEDS ORDERED: Nitroglycerin 0.4 MG Tab.SL SL PRN (15:57)
[2018-10-09] MEDS ORDERED: Lidocaine 2% 100 MG/5 ML Syringe IVPUSH PRN (15:57)
[2018-10-09] MEDS ORDERED: Ondansetron 4 MG/2 ML SDV IV PRN (15:57)
[2018-10-09 16:44] LABS: ANION GAP 16.5 mmol/L (5-15); CHLORIDE,CL 101 mmol/L (98-115); SODIUM,NA 139 mmol/L (136-145)
[2018-10-09] MEDS ORDERED: LORazepam 0.5 MG Tab PO PRN (17:16)
[2018-10-09] MEDS ORDERED: Albuterol/Ipratropium 3.0-0.5 MG/3 ML Neb Soln NEB PRN ×2 (17:25)
[2018-10-09] MEDS ORDERED: traMADol 50 MG Tab PO PRN (17:25)
[2018-10-09] MEDS ORDERED: Albuterol 8 GM Inhaler INH PRN (17:25)
--- NOTE | 2018-10-09 17:26 | CR ---
[id number] RAD/RAD Chest PA or AP 1V EXAM: RAD Chest PA or AP 1V INDICATION: SHORTNESS OF BREATH. COMPARISON: October 03, 2018. DISCUSSION: Cardiomediastinal silhouette is stable in size and contour. No infiltrate, effusion, or pneumothorax. Low lung volumes associated vascular crowding. Pulmonary vascular congestion. IMPRESSION: Pulmonary vascular congestion the setting of cardiomegaly. Rafy Harrison DO 10/09/18 [id number] Thank you for allowing us to participate in the care of your patient.
[2018-10-09] MEDS: Metoprolol Tartrate 5 MG/5 ML SDV IVPUSH SCH ×3 (18:03→19:41)
[2018-10-09] MEDS: Potassium Chloride 20 MEQ Tab.ER PO SCH (19:37)
[2018-10-09] MEDS: Furosemide 20 MG Tab PO SCH (19:38)
[2018-10-09] MEDS: SYMBICORT INH SCH (21:03)
[2018-10-09] MEDS: Metoprolol Tartrate 50 MG Tab PO SCH (21:04)
[2018-10-09] MEDS: Metoprolol Tartrate 25 MG Tab PO SCH (21:04)
[2018-10-09] MEDS: Folic Acid 1 MG Tab PO SCH (21:05)
[2018-10-09] MEDS: Fluticasone Propionate 110 MCG/Puff 12 GM Inhaler INH SCH (21:06)
[2018-10-10] MEDS: Potassium Chloride 20 MEQ Tab.ER PO SCH ×2 (08:08→17:10)
[2018-10-10] MEDS: Fluticasone Propionate 110 MCG/Puff 12 GM Inhaler INH SCH ×2 (08:41→20:21)
[2018-10-10] MEDS: Rivaroxaban 10 MG Tab PO SCH (08:42)
[2018-10-10] MEDS: Furosemide 20 MG Tab PO SCH ×3 (08:42→17:10)
[2018-10-10] MEDS: Metoprolol Tartrate 25 MG Tab PO SCH ×2 (08:43→20:22)
[2018-10-10] MEDS: Metoprolol Tartrate 50 MG Tab PO SCH ×2 (08:44→20:22)
[2018-10-10] MEDS: amLODIPine 2.5 MG Tab PO SCH (08:45)
[2018-10-10] MEDS ORDERED: Furosemide 40 MG/4 ML VIAL IVPUSH ONE (08:51)
[2018-10-10] MEDS: Thiamine 100 MG Tab PO SCH (09:55)
[2018-10-10] MEDS: SYMBICORT INH SCH ×2 (09:56→20:21)
--- NOTE | 2018-10-10 09:57 | PCM.PN ---
- General Info Date of Service: 10/10/18 Admission Dx/Problem (Free Text): Atrial fibrillation with RVR. - Review of Systems Systems Review Comment:: Vickie is seen today on observation rounds. She was admitted on 10/09/18 from the clinic with a-fib with RVR. She had felt unwell approximately 1 week prior to the clinic visit on 10/09 and was found to be orthostatic. She has a hx of CHF and so was given a gentle fluid bolus of 500 cc IV and she responded well to that. She states she got up on 10/09 and "I felt great" but as they day went on she "felt like garbage". She reports SOB at rest, worse with exertion and she was "wobbly". She has fallen in the past at home due to EtOH intoxication. GEORGE on admission yesterday was negative. She has no dizziness, but feels unsteady with her gait stating "when I got off the stool this morning I almost fell down". She also reports being nauseated without vomiting. She is supposed to be taking medications twice daily at home (including her metoprolol for rate control) but she started to take them only once daily as "it was suggested to me that maybe I was overmedicated and that is why I was having balance problems". Her [id number], who is her pharmacist, confirms that she was only taking 50% of her pills. EKG done in the clinic yesterday showed a-fib with RVR. She has been intolerant of diltiazem due to allergy (rash). She received metoprolol 5 mg IV q 5 minutes x 3 doses. That did not do much for her pulse yesterday. She was also placed on oxygen 2L via [place] and sats have been in the upper 90's. She has a hx of smoking but has not smoked in many years. She states she has a reaction that when pills get near her mouth she will gag. She has had upper GI endoscopy recently which was normal. This to be more of a psychological issue. She denies pain. - Patient Data Vitals - Most Recent: Last Vital Signs Temp 97.7 F 10/10/18 06:26 Pulse 123 H 10/10/18 08:44 Resp 25 H 10/10/18 06:26 BP 114/79 10/10/18 08:45 Pulse Ox 98 10/10/18 06:26 Weight - Most Recent: 144 lb 6.4 oz I&O - Last 24 Hours: Intake & Output 10/09/18 10/10/18 10/10/18 22:59 06:59 14:59 Intake Total 200 250 Output Total 200 Balance 200 50 Lab Results Last 24 Hours: Laboratory Results - last 24 hr 10/09/18 10/09/18 Range/Units 15:57 15:57 WBC 5.07 (5.00-10.00) 10^3/uL RBC 4.26 (3.80-5.50) 10^6/uL Hgb 14.5 (12.0-16.0) g/dL Hct 42.4 (37.0-47.0) % MCV 99.5 H (82.0-92.0) fL MCH 34.0 H (27.0-31.0) pg MCHC 34.2 (32.0-36.0) g/dL RDW 13.7 (11.5-14.5) % Plt Count 206 (150-400) 10^3/uL MPV 11.1 H (7.4-10.4) fL Immature Gran % (Auto) 0.2 (0.0-5.0) % Neut % (Auto) 76.1 H (50.0-70.0) % Lymph % (Auto) 13.8 L (20.0-40.0) % [place] % (Auto) 7.9 (2.0-8.0) % Eos % (Auto) 0.6 L (1.0-3.0) % Baso % (Auto) 1.4 H (0.0-1.0) % Immature Gran # (Auto) 0.01 (0.00-0.50) 10^3/uL Neut # (Auto) 3.86 (2.50-7.00) 10^3/uL Lymph # (Auto) 0.70 L (1.00-4.00) 10^3/uL [place] # (Auto) 0.40 (0.10-0.80) 10^3/uL Eos # (Auto) 0.03 L (0.10-0.30) 10^3/uL Baso # (Auto) 0.07 (0.00-0.10) 10^3/uL Sodium 139 (136-145) mmol/L Potassium 4.1 (3.3-5.3) mmol/L Chloride 101 (98-115) mmol/L Carbon Dioxide 25.6 (21.0-32.0) mmol/L Anion Gap 16.5 H (5-15) mmol/L BUN 7 (6-25) mg/dL Creatinine 0.64 (0.51-1.17) mg/dL Est Cr Clr Drug Dosing 68.18 mL/min Estimated GFR (MDRD) > 60 mL/min Glucose 162 H (75 - 99) mg/dL Calcium 8.4 L (8.7-10.3) mg/dL Total Bilirubin 0.9 (0.2-1.0) mg/dL AST 70 H (15-37) U/L ALT 40 (12-78) U/L Alkaline Phosphatase 163 H (46-116) IU/L Troponin I < 0.04 (0.00-0.070) ng/mL B-Natriuretic Peptide 476 H (0-100) pg/mL Total Protein 6.7 (6.4-8.2) g/dL Albumin 2.91 L (3.00-4.80) g/dL Ethyl Alcohol < 3 (NONE DETECTED) mg/dL Med Orders - Current: Current Medications Albuterol (Ventolin Hfa) 0 gm INH BID PRN PRN Reason: Shortness of Breath Albuterol/Ipratropium (Duoneb 3.0-0.5 Mg/3 Ml) 3 ml NEB Q4H PRN PRN Reason: Shortness of Breath Amlodipine Besylate (Norvasc) 5 mg PO DAILY [facility] Last Admin: 10/10/18 08:45 Dose: 5 mg Atropine Sulfate (Atropine 0.1 Mg/Ml) 0 mg IVPUSH ASDIRECTED PRN PRN Reason: Heart Epinephrine HCl (Epinephrine 1:10,000) 1 mg IVPUSH ASDIRECTED PRN PRN Reason: Heart Fluticasone Propionate (Flovent Hfa 110 Mcg) 0 gm INH BID [facility] Last Admin: 10/10/18 08:41 Dose: 2 puff Folic Acid (Folic Acid) 1 mg PO BEDTIME [facility] Last Admin: 10/09/18 21:05 Dose: 1 mg Furosemide (Lasix) 20 mg PO BIDDIURETIC [facility] Last Admin: 10/10/18 08:42 Dose: 20 mg Lidocaine HCl (Xylocaine 2%) 0 mg IVPUSH ASDIRECTED PRN PRN Reason: Heart Lorazepam (Ativan) 0.5 mg PO Q6H PRN PRN Reason: Anxiety Metoprolol Tartrate (Lopressor) 100 mg PO BID [facility] Last Admin: 10/10/18 08:44 Dose: 100 mg Metoprolol Tartrate (Lopressor) 12.5 mg PO BID [facility] Last Admin: 10/10/18 08:43 Dose: 12.5 mg Nitroglycerin (Nitrostat) 0.4 mg SL ASDIRECTED PRN PRN Reason: Heart Symbicort 160/4.5 * (*Own Med) 0 puff INH BID [facility] Last Admin: 10/09/18 21:03 Dose: Not Given Ondansetron HCl (Zofran) 4 mg IV Q4H PRN PRN Reason: Nausea/Vomiting Potassium Chloride (Klor-Con M20) 20 meq PO BIDMEALS [facility] Last Admin: 10/10/18 08:08 Dose: 20 meq Rivaroxaban (Xarelto) 20 mg PO DAILY [facility] Last Admin: 10/10/18 08:42 Dose: 20 mg Thiamine HCl (Vitamin B-1) 100 mg PO DAILY [facility] Tramadol HCl (Ultram) 50 mg PO Q6H PRN PRN Reason: Pain Discontinued Medications Albuterol/Ipratropium (Duoneb 3.0-0.5 Mg/3 Ml) 3 ml NEB Q4HRRT PRN PRN Reason: Wheezing Furosemide (Lasix) 20 mg IVPUSH NOW ONE Stop: 10/10/18 08:52 Metoprolol Tartrate (Lopressor) 5 mg IVPUSH Q15M [facility] Stop: 10/09/18 17:46 Last Admin: 10/09/18 19:41 Dose: 5 mg - Exam Quality Assessment: Supplemental Oxygen General: Alert, Oriented, Cooperative, No Acute Distress Lungs: Crackles (Bilateral crackles.) Cardiovascular: No Murmurs, Irregular Rhythm GI/Abdominal Exam: Normal Bowel Sounds Extremities: No Pedal Edema - Problem List & Annotations (1) Atrial fibrillation with rapid ventricular response SNOMED Code(s): 869798797049940 Code(s): I48.91 - UNSPECIFIED ATRIAL FIBRILLATION Status: Acute Current Visit: No (2) Pill dysphagia SNOMED Code(s): 187430728 Code(s): R13.10 - DYSPHAGIA, UNSPECIFIED Status: Acute Current Visit: No (3) Congestive heart failure SNOMED Code(s): 88145854 Code(s): I50.9 - HEART FAILURE, UNSPECIFIED Status: Chronic Current Visit : No - Problem List Review Problem List Initiated/Reviewed/Updated: Yes - My Orders Last 24 Hours: My Active Orders 10/09/18 15:57 Atropine [Atropine 0.1 MG/ML] 0 mg IVPUSH ASDIRECTED PRN EPINEPHrine [EPINEPHrine 1:10,000] 1 mg IVPUSH ASDIRECTED PRN Lidocaine 2% [Xylocaine 2%] 0 mg IVPUSH ASDIRECTED PRN Nitroglycerin [Nitrostat] 0.4 mg SL ASDIRECTED PRN 10/10/18 08:57 Head wo Cont [CT] Routine 10/10/18 09:35 Admission Status [Patient Status] [ADT] Routine 10/10/18 09:38 AMMONIA VENOUS [CHEM] Routine 10/10/18 09:39 B-TYPE NATRIURETIC PEPTIDE,BNP [CHEM] Routine BASIC METABOLIC PANEL,BMP [CHEM] Routine CBC WITH AUTO DIFF [HEME] Routine - Assessment Assessment:: Afib with RVR. CHF Pill dysphagia Gait instability - Plan Plan:: Afib with RVR. Resume home metoprolol tartrate dose of 112.5 mg PO BID. This can be crushed and she seems to do better with pills in applesauce. CHF. Lasix 20 mg IV x 1 dose to see response. She has clinical evidence of volume overload and this may be why she is SOB. Pill dysphagia. Seems to be more of a psychological issue than a functional issue. Will try to crush pills in applesauce as able. Gait instability. Given hx of heavy EtOH use will get ammonia level today. Will also get head CT and PT eval and treat. I am going to change her admission status from observation to inpatient. She was in agreement with this.
--- NOTE | 2018-10-10 10:19 | CT ---
[id number] CT/CT Head WO IV EXAM: CT Head WO IV CLINICAL DATA: GAIT INSTABILITY, FALLS. COMPARISON STUDY: November 02, 2015. FINDINGS: No intracranial hemorrhage, extra-axial fluid collection, mass, or acute ischemia. 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 Generalized parenchymal atrophy with scattered areas of nonspecific white matter disease, commonly seen as sequela of chronic microvascular ischemia. Soft tissues are unremarkable. Paranasal sinuses and mastoid air cells are clear. IMPRESSION: No acute intracranial findings. Rafy Harrison DO 10/10/18 1016 Thank you for allowing us to participate in the care of your patient.
[2018-10-10 10:28] LABS: ANION GAP 13.7 mmol/L (5-15); CHLORIDE,CL 101 mmol/L (98-115); SODIUM,NA 140 mmol/L (136-145)
[2018-10-10 11:13] LABS: HEMOGLOBIN A1C 6.4 % (4.3-5.7)
[2018-10-10] MEDS: Folic Acid 1 MG Tab PO SCH (20:22)
[2018-10-11 07:42] LABS: ANION GAP 13.8 mmol/L (5-15); CHLORIDE,CL 102 mmol/L (98-115); SODIUM,NA 141 mmol/L (136-145)
[2018-10-11] MEDS: Potassium Chloride 20 MEQ Tab.ER PO SCH ×2 (08:14→18:04)
[2018-10-11] MEDS: Rivaroxaban 10 MG Tab PO SCH (08:59)
[2018-10-11] MEDS: Fluticasone Propionate 110 MCG/Puff 12 GM Inhaler INH SCH ×2 (08:59→20:55)
[2018-10-11] MEDS: Metoprolol Tartrate 50 MG Tab PO SCH ×4 (08:59→20:56)
[2018-10-11] MEDS: Furosemide 20 MG Tab PO SCH ×2 (08:59→18:04)
[2018-10-11] MEDS: Metoprolol Tartrate 25 MG Tab PO SCH ×2 (08:59→09:43)
[2018-10-11] MEDS: amLODIPine 2.5 MG Tab PO SCH (08:59)
[2018-10-11] MEDS: Thiamine 100 MG Tab PO SCH (09:00)
[2018-10-11] MEDS: SYMBICORT INH SCH ×2 (09:00→20:57)
[2018-10-11] MEDS ORDERED: Furosemide 20 MG Tab PO ONE (09:19)
[2018-10-11] MEDS: Folic Acid 1 MG Tab PO SCH (20:56)
[2018-10-12 07:48] LABS: ANION GAP 11.6 mmol/L (5-15); CHLORIDE,CL 102 mmol/L (98-115); SODIUM,NA 140 mmol/L (136-145)
[2018-10-12] MEDS: Potassium Chloride 20 MEQ Tab.ER PO SCH (08:07)
[2018-10-12] MEDS: amLODIPine 2.5 MG Tab PO SCH (09:51)
[2018-10-12] MEDS: Metoprolol Tartrate 50 MG Tab PO SCH ×2 (09:51)
[2018-10-12] MEDS: Furosemide 20 MG Tab PO SCH (09:51)
[2018-10-12] MEDS: Rivaroxaban 10 MG Tab PO SCH (09:51)
[2018-10-12] MEDS: Fluticasone Propionate 110 MCG/Puff 12 GM Inhaler INH SCH (09:51)
[2018-10-12] MEDS: Thiamine 100 MG Tab PO SCH (09:52)
[2018-10-12] MEDS: SYMBICORT INH SCH (09:52)
[2018-10-12 13:42] VITALS: BP 106/65
--- NOTE | 2018-10-13 09:23 | PN ---
10/11/2018 PATIENT NAME: CIERRA PRADHAN HISTORY OF PRESENT ILLNESS: This is an 78-year-old female who was admitted to the hospital on 10/09/2018, for atrial fibrillation with RVR. She had felt unwell 1 week prior to the clinic visit. She was also found to be orthostatic as an outpatient and received IV fluid bolus approximately 1 week ago. The patient is looking and feeling better, however she continues to be tachycardic with a heart rate in between 90s and 120s. When I walked in today, her heart rate was 120, and she was sitting on the side of the bed, rinsing her mouth out. She also has some pill dysphagia and had a recent upper GI endoscopy, which was normal. Yesterday, Dr. Sharon Gaming saw her and did a CT scan of the head due to a reported problem with balance. PT has also evaluated the patient and she has been up walking several times and has tolerated this well. Ammonia level was checked yesterday, which was normal. Labs have remained stable. She did receive an extra dose of Lasix intravenously yesterday. White count has been normal to subnormal. Hemoglobin is stable at 13.2. Sodium is 141. Potassium 4.7. BUN and creatinine are 11 and 0.80. Calcium is 8.3. BNP was 476 on admission and went up to 721 yesterday and now has come back down to 508. PHYSICAL EXAMINATION: VITAL SIGNS: Her temperature is 98.5; pulse is 77 to 120 beats per minute, atrial fibrillation with RVR, irregularly irregular rate; respirations are 18; blood pressure 110/63; oxygen saturation 93%. CARDIAC: Reveals an irregularly irregular cardiac rhythm at a rate of 120 beats per minute. No murmur, click, or gallop is auscultated. LUNGS: Clear in the upper lobes, however, bibasilar crackles are present. ABDOMEN: Soft, nontender. EXTREMITIES: There is mild pedal edema. IMPRESSION: 1. Atrial fibrillation with rapid ventricular rate. The patient has not been optimized as far as her rapid ventricular rate. We will increase her metoprolol tartrate dose from one 12.5 mg b.i.d. to one 50 mg b.i.d. She was previously on metoprolol succinate, which cannot be crushed, metoprolol tartrate can be, and we will discharge her on this most likely tomorrow if she remains stable. 2. Congestive heart failure. We did give another dose of oral Lasix today for a total dose of 40 mg this morning. She will continue 20 mg in the evening. 3. Pill dysphagia. She continues to complain about this and she uses applesauce to help ingest her pills. She may need a swallow evaluation as an outpatient by the speech pathologist. 4. Gait instability. This seems to have gotten better. We did get a serum ammonia level yesterday, which was normal. CT of the head was normal without any intracranial abnormalities. Yesterday, PT has evaluated and treated her. She was admitted for observation status and now this has been changed to inpatient. We will continue to observe the patient with telemetry and entertain discharge home tomorrow if things stay stable. /[id number]/MODL
--- NOTE | 2018-10-13 09:26 | DISCH ---
This is an 78-year-old female who was admitted to the hospital on 10/09/2018 with atrial fibrillation with RVR. Since she has been here, we have increased her metoprolol from 112.5 daily to 150 mg daily. Her heart rate has responded well to this and now is consistently in the 70s and 80s as opposed to one-teens to 120s. She has received a couple of extra doses of Lasix due to some crackles in her lungs. Today, the lungs are completely clear and she also does not have any pedal edema. She actually feels better than she did when she came in as well. Her weight on admission was 147, her weight on discharge is 140 pounds and 9 ounces. Significant lab data from today includes WBC of 4.23, which is low and not clinically significant at this time. Hemoglobin is stable at 13.4. BMP includes a sodium of 140, potassium 4.7, both being normal. She has not required any additional potassium with the increased dose of Lasix. We did do a troponin on admission which was less than 0.04. BUN and creatinine are stable at 10 and 0.80 respectively with a GFR of greater than 60. She does have a mildly low calcium of 8.5. BNP was 476 on admission and went to a high of 721 on 10/10/2018 and is now 432. Her admission blood alcohol level was less than 3. PHYSICAL EXAMINATION: VITAL SIGNS: Her temp is 98. Pulse is between 70 and 80 as a general rule, at 10 this morning, it was 106. Much improved from before. Blood pressure is stable at 103/69. Respirations are 18, O2 saturation is 95% on room air. SKIN: Warm and dry to touch. CARDIAC: Reveals an irregularly irregular rhythm with a controlled rate of 80 beats per minute. No murmur, click or gallop is auscultated. LUNGS: Clear without crackles this morning in the bases. ABDOMEN: Soft, nontender. EXTREMITIES: There is no pedal edema. IMPRESSION: 1. Atrial fibrillation with rapid ventricular response. This has improved to the point where the patient is stable enough to be discharged home. Her metoprolol was changed to 150 mg b.i.d. She was previously taking 112 mg b.i.d. and was possibly not taking the medication b.i.d., only once daily. 2. Congestive heart failure. This is improved with additional Lasix. I do believe that it is stable also because of the rate control on her atrial fibrillation. 3. She has had some pill dysphagia. We will set up a swallow eval on an outpatient basis. 4. She has had some balance problems and some deconditioning. We did have Physical Therapy evaluate her and she has been ambulating and seems quite steady on her feet. A head CT was performed which was normal. I will follow up with her in the clinic on or Saturday of this week which will be 10/16/2018 or 10/17/2018. She will stop in the clinic daily if possible to have her blood pressure checked. I will check to see when her last echocardiogram was performed and we will review that at her followup appointment in the clinic too. I have communicated my findings with Dr. Sharon Lanza who also co-manages this patient. /[id number]/MODL
== END 2018-10-12 13:51 | disposition home or self-care (01) | DRG 308 ==
LOC: KA.OC 14:58 → KA.MS 15:30 → OBSVTOIN 10-10 09:35
PROVIDERS: ATTEND Internal Medicine
DX: I48.91 Unspecified atrial fibrillation (principal); I50.33 Acute on chronic diastolic (congestive) heart failure; I50.9 Heart failure, unspecified; E03.9 Hypothyroidism, unspecified; I11.0 Hypertensive heart disease with heart failure; E87.6 Hypokalemia; R13.10 Dysphagia, unspecified; R26.81 Unsteadiness on feet; Z96.1 Presence of intraocular lens; J44.9 Chronic obstructive pulmonary disease, unspecified; Z98.49 Cataract extraction status, unspecified eye; Z87.891 Personal history of nicotine dependence; Z88.5 Allergy status to narcotic agent; Z88.8 Allergy status to other drugs, medicaments and biological substances; Z79.899 Other long term (current) drug therapy; Z79.890 Hormone replacement therapy; Z79.01 Long term (current) use of anticoagulants
CPT/HCPCS: 36415; 70450; 71045; 80048; 80053; 82140; 83036; 83880; 84484; 85025; 87070; 87205; 93005; 96374; 96376; 97162-GP; A9270-GY; G0378; G0480; J1940; J3490

== ENCOUNTER 2018-11-13 16:45 | Emergency (ER) | payer MEDICARE, OTHER ==
[2018-11-13] MEDS ORDERED: Sodium Chloride 0.9% 1,000 ML IV ONE (17:46)
--- NOTE | 2018-11-13 18:01 | EDM.PDOC ---
ED HPI GENERAL MEDICAL PROBLEM - General Chief Complaint: General Stated Complaint: "NOT FEELING WELL" Time Seen by Provider: 11/13/18 17:26 Source of Information: Reports: Patient, Provider History Limitations: Reports: No Limitations - History of Present Illness INITIAL COMMENTS - FREE TEXT/NARRATIVE: Patient presents with feeling weak and lightheaded when she walks, stands or even sits up. She has A Fib and has had RVR in the past. She also has had frequent alcohol intoxication episodes per PCP. Pt says she had a drink last night but nothing today. Also says she drinks lots of water. left side of back Pain Score (Numeric/FACES): 5 - Related Data Allergies Allergy/AdvReac Type Severity Reaction Status Date / Time ibuprofen Allergy Itching Verified 11/13/18 17:15 morphine Allergy Itching Verified 11/13/18 17:15 propoxyphene napsylate Allergy Itching Verified 11/13/18 17:15 [From [facility]] Home Meds: Home Meds Furosemide 20 mg PO BID 04/19/16 [History] Rivaroxaban [Xarelto] 20 mg PO DAILY tablet 12/30/17 [Rx] Ipratropium/Albuterol Sulfate [Iprat-Albut 0.5-3(2.5) mg/3 ml] 3 ml IH Q4H PRN 04/11/18 [History] Albuterol [Ventolin HFA] 2 puff INH BID PRN 08/22/18 [History] Thiamine HCl 100 mg PO DAILY 08/22/18 [History] traMADol HCl [Tramadol HCl] 50 mg PO Q6H PRN 08/22/18 [History] Folic Acid 1 mg PO BEDTIME tablet 08/23/18 [Rx] guaiFENesin/Codeine Phosphate [Cheratussin AC Syrup] 10 ml PO 6XDAY PRN #120 liquid 08/23/18 [Rx] Budesonide/Formoterol [Symbicort 160-4.5 MCG] 2 puff INH BID 11/13/18 [History] Carvedilol [Coreg] 25 mg PO BID 11/13/18 [History] Fludrocortisone [Fludrocortisone Acetate] 0.1 mg PO DAILY 11/13/18 [History] Glycopyrrolate [Robinul] 0.5 mg PO BID 11/13/18 [History] Levothyroxine Sodium [Synthroid] 25 mcg PO ACBREAKFAST 11/13/18 [History] Potassium Chloride [Klor-Con 10] 20 meq PO BID 11/13/18 [History] Past Medical History HEENT History: Reports: Cataract, Hard of Hearing, Impaired Vision, Macular Degeneration Cardiovascular History: Reports: Afib, Heart Failure, High Cholesterol, Hypertension, SOB on Exertion Respiratory History: Reports: COPD, Pneumonia, Recurrent, SOB Gastrointestinal History: Reports: Hiatal Hernia Genitourinary History: Reports: Other (See Below) Other Genitourinary History: Bladder cancer [employer] History: Reports: Dysfunctional Uterine Bleeding, Fibroids, Other [employer] History: Hysterectomy 1978 Musculoskeletal History: Reports: Back Pain, Chronic, Osteoarthritis Neurological History: Reports: None, TIA Psychiatric History: Reports: None Endocrine/Metabolic History: Reports: None Hematologic History: Reports: Anemia, Blood Transfusion(s), Transfusion Reaction Immunologic History: Reports: None Oncologic (Cancer) History: Reports: Bladder Dermatologic History: Reports: None - Infectious Disease History Infectious Disease History: Reports: Chicken Pox, Measles, Mumps, Rubella, Shingles - Past Surgical History Head Surgeries/Procedures: Reports: None HEENT Surgical History: Reports: Cataract Surgery Cardiovascular Surgical History: Reports: None Respiratory Surgical History: Reports: None GI Surgical History: Reports: Appendectomy, EGD, Hernia, Abdominal Female Surgical History: Reports: D&C, Hysterectomy, Salpingo-Oophorectomy, Tubal Ligation Endocrine Surgical History: Reports: None Neurological Surgical History: Reports: Spinal Fusion Musculoskeletal Surgical History: Reports: Other (See Below) Other Musculoskeletal Surgeries/Procedures:: Back surgery - spinal fusion Oncologic Surgical History: Reports: None Dermatological Surgical History: Reports: None Social & Family History - Family History Family Medical History: Noncontributory - Caffeine Use Caffeine Use: Reports: Coffee Caffeine Use Comment: Pt reports 2 cups of coffee/day ED ROS GENERAL - Review of Systems Review Of Systems: See Below Constitutional: Denies: Fever, Chills HEENT: Reports: No Symptoms Respiratory: Reports: Shortness of Breath (chronic; at baseline). Denies: Cough Cardiovascular: Reports: Lightheadedness. Denies: Chest Pain, Syncope GI/Abdominal: Reports: Constipation (mild, chronic). Denies: Abdominal Pain, Diarrhea, Nausea, Vomiting : Denies: Dysuria, Flank Pain, Frequency Musculoskeletal: Reports: No Symptoms Skin: Denies: Cyanosis, Jaundice, Mottled, Pallor, Diaphoresis Neurological: Denies: Confusion, Dizziness, Headache, Seizure, Syncope, Trouble Speaking, Difficulty Walking Psychiatric: Denies: Agitation, Anxiety, Confusion ED EXAM, GENERAL - Physical Exam Exam: See Below Exam Limited By: No Limitations General Appearance: Alert, WD/WN, No Apparent Distress Eye Exam: Bilateral Eye: EOMI, Normal Inspection, PERRL Ears: Normal External Exam, Hearing Grossly Normal Nose: Normal Inspection, No Blood Throat/Mouth: Normal Inspection, Normal Lips, Normal Voice, No Airway Compromise Head: Atraumatic, Normocephalic Neck: Normal Inspection, Supple, Non-Tender, Full Range of Motion. No: Carotid Bruit Respiratory/Chest: No Respiratory Distress, Lungs Clear, Normal Breath Sounds, No Accessory Muscle Use Cardiovascular: No Murmur, Irregularly Irregular (with normal rate) Peripheral Pulses: 1+: Posterior Tibial (L), Posterior Tibial (R), Dorsalis Pedis (L), Dorsalis Pedis (R), 2+: Carotid (L), Carotid (R), Radial (L), Radial (R) GI/Abdominal: Normal Bowel Sounds, Soft, Non-Tender, No Organomegaly, No Distention Back Exam: Normal Inspection, Full Range of Motion. No: CVA Tenderness (L), CVA Tenderness (R) Extremities: Normal Inspection, Normal Range of Motion, Non-Tender, No Pedal Edema, Normal Capillary Refill Neurological: Alert, Oriented, Normal Cognition, No Motor/Sensory Deficits Psychiatric: Normal Affect, Normal Mood Skin Exam: Warm, Dry, Intact, Normal Color, No Rash Course - Vital Signs Last Recorded V/S: Last Vital Signs Temp 97.6 F 11/13/18 16:47 Pulse 100 11/13/18 19:08 Resp 19 11/13/18 19:08 BP 113/76 11/13/18 19:08 Pulse Ox 97 11/13/18 19:08 Orthostatic Blood Pressure [ 112/60 Standing] Orthostatic Blood Pressure [ 131/73 Sitting] Orthostatic Blood Pressure [ 113/76 Supine] - Orders/Labs/Meds Orders: Active Orders 24 hr Category Date Time Status Orthostatic Vital Signs [RC] ASDIRECTED Care 11/13/18 18:53 Ordered Labs: Laboratory Tests 11/13/18 11/13/18 11/13/18 Range/Units 17:50 17:50 19:07 WBC 4.56 L (5.00-10.00) 10^3/uL RBC 4.22 (3.80-5.50) 10^6/uL Hgb 13.9 D (12.0-16.0) g/dL Hct 40.8 (37.0-47.0) % MCV 96.7 H (82.0-92.0) fL MCH 32.9 H (27.0-31.0) pg MCHC 34.1 (32.0-36.0) g/dL RDW 13.2 (11.5-14.5) % Plt Count 164 (150-400) 10^3/uL MPV 11.5 H (7.4-10.4) fL Immature Gran % (Auto) 0.2 (0.0-5.0) % Neut % (Auto) 69.6 (50.0-70.0) % Lymph % (Auto) 19.7 L (20.0-40.0) % [place] % (Auto) 9.2 H (2.0-8.0) % Eos % (Auto) 0.4 L (1.0-3.0) % Baso % (Auto) 0.9 (0.0-1.0) % Immature Gran # (Auto) 0.01 (0.00-0.50) 10^3/uL Neut # (Auto) 3.17 (2.50-7.00) 10^3/uL Lymph # (Auto) 0.90 L (1.00-4.00) 10^3/uL [place] # (Auto) 0.42 (0.10-0.80) 10^3/uL Eos # (Auto) 0.02 L (0.10-0.30) 10^3/uL Baso # (Auto) 0.04 (0.00-0.10) 10^3/uL Sodium 135 L (136-145) mmol/L Potassium 5.7 H (3.3-5.3) mmol/L Chloride 97 L (98-115) mmol/L Carbon Dioxide 31.2 (21.0-32.0) mmol/L Anion Gap 12.5 (5-15) mmol/L BUN 14 (6-25) mg/dL Creatinine 0.81 (0.51-1.17) mg/dL Est Cr Clr Drug Dosing 53.87 mL/min Estimated GFR (MDRD) > 60 mL/min Glucose 150 H (75 - 99) mg/dL Calcium 9.0 (8.7-10.3) mg/dL Specimen Type Urincc Urine Color Yellow (YELLOW) Urine Appearance Clear (CLEAR) Urine pH 7.0 (5.0-9.0) Ur Specific [place] 1.015 (1.005-1.030) Urine Protein Negative (NEGATIVE) mg/dL Urine Glucose (UA) Negative (NEGATIVE) mg/dL Urine Ketones Trace H (NEGATIVE) mg/dL Urine Occult Blood Moderate H (NEGATIVE) Urine Nitrite Negative (NEGATIVE) Urine Bilirubin Negative (NEGATIVE) Urine Urobilinogen >=8.0 H (0.2-1.0) E.U./dL Ur Leukocyte Esterase Moderate H (NEGATIVE) Urine RBC 0-5 (0-5) /HPF Urine WBC 20-30 H (0-5) /HPF Ur Epithelial Cells Many H /LPF Urine Bacteria Moderate H (NONE TO FEW) /HPF Ethyl Alcohol < 3 (NONE DETECTED) mg/dL Meds: Medications Discontinued Medications Generic Name Dose Route Start Last Admin Trade Name Freq PRN Reason Stop Dose Admin Sodium Chloride 1,000 mls @ 999 mls/hr 11/13/18 17:46 11/13/18 18:03 Normal Saline IV 11/13/18 18:46 999 mls/hr .BOLUS ONE Administration - Re-Assessments/Exams Free Text/Narrative Re-Assessment/Exam: 11/13/18 20:36 Discussed findings and plan with patient and sons/dtrnlaws. They tell me that they know she doesn't drink nearly as much water as she says. Patient encouraged to drink 8 cups of water daily. Discharge to home in stable condition. Departure - Departure Time of Disposition: 19:30 Disposition: Home, Self-Care 01 Condition: Good Clinical Impression: Hyperkalemia UTI (urinary tract infection) Qualifiers: Urinary tract infection type: site unspecified Hematuria presence: without hematuria Qualified Code(s): N39.0 - Urinary tract infection, site not specified - Discharge Information Referrals: [place],Sharon A, MD [Primary Care Provider] - Forms: ED Department Discharge Additional Instructions: 1. Drink 8 cups of water daily. 2. Take Levaquin as directed. 3. Decrease your potassium from 40 daily to 20mg daily. 4. Follow up with Dr. Herrera next week for recheck or sooner if worsening. - My Orders Last 24 Hours: My Active Orders 11/13/18 18:53 Orthostatic Vital Signs [RC] ASDIRECTED - Assessment/Plan Last 24 Hours: My Active Orders 11/13/18 18:53 Orthostatic Vital Signs [RC] ASDIRECTED
[2018-11-13 18:17] LABS: ANION GAP 12.5 mmol/L (5-15); CHLORIDE,CL 97 mmol/L (98-115); SODIUM,NA 135 mmol/L (136-145)
[2018-11-13 19:10] VITALS: BP 113/76; PULSE 100
== END 2018-11-13 20:10 | disposition home or self-care (01) ==
LOC: KA.ED 16:45
DX: N39.0 Urinary tract infection, site not specified (principal); E87.5 Hyperkalemia; Z88.6 Allergy status to analgesic agent; Z88.5 Allergy status to narcotic agent; Z88.8 Allergy status to other drugs, medicaments and biological substances; Z79.899 Other long term (current) drug therapy
CPT/HCPCS: 36415; 80048; 81001; 85025; 96360; 99284; G0480; J7030

== ENCOUNTER 2018-12-17 13:30 | Inpatient (IN) | payer MEDICARE, OTHER ==
[2018-12-17] MEDS ORDERED: Furosemide 20 MG Tab PO PRN (15:33)
[2018-12-17] MEDS ORDERED: traMADol 50 MG Tab PO PRN (15:33)
[2018-12-17] MEDS ORDERED: EPINEPHrine 1:10,000 1 MG/10 ML Syringe IVPUSH PRN (15:42)
[2018-12-17] MEDS ORDERED: Atropine 0.1 MG/ML 10 ML Syringe IVPUSH PRN (15:42)
[2018-12-17] MEDS ORDERED: Nitroglycerin 0.4 MG Tab.SL SL PRN (15:42)
[2018-12-17] MEDS ORDERED: Lidocaine 2% 100 MG/5 ML Syringe IVPUSH PRN (15:42)
[2018-12-17 16:22] LABS: ANION GAP 10.5 mmol/L (5-15); CHLORIDE,CL 99 mmol/L (98-115); SODIUM,NA 137 mmol/L (136-145)
[2018-12-17] MEDS: Furosemide 40 MG/4 ML VIAL IVPUSH SCH (17:00)
[2018-12-17] MEDS: Rivaroxaban 10 MG Tab PO SCH (20:13)
[2018-12-17] MEDS: Carvedilol 12.5 MG Tab PO SCH (20:13)
[2018-12-17] MEDS: Folic Acid 1 MG Tab PO SCH (20:14)
[2018-12-17] MEDS: Glycopyrrolate 1 MG Tab PO SCH (20:14)
[2018-12-17] MEDS: Thiamine 100 MG Tab PO SCH (20:15)
[2018-12-17] MEDS ORDERED: Rivaroxaban 10 MG Tab PO SCH (21:00)
[2018-12-17] MEDS ORDERED: Furosemide 20 MG Tab PO SCH (21:00)
[2018-12-17] MEDS ORDERED: Thiamine 100 MG Tab PO SCH (21:00)
[2018-12-18] MEDS: Albuterol/Ipratropium 3.0-0.5 MG/3 ML Neb Soln NEB PRN ×2 (04:32→16:54)
[2018-12-18] MEDS: Levothyroxine 25 MCG Tab PO SCH (06:54)
[2018-12-18 08:10] LABS: ANION GAP 7.6 mmol/L (5-15); CHLORIDE,CL 100 mmol/L (98-115); SODIUM,NA 139 mmol/L (136-145)
[2018-12-18] MEDS: Aspirin 81 MG Tab.Chew PO SCH (09:05)
[2018-12-18] MEDS: Potassium Chloride 10 MEQ Tab.ER PO SCH (09:05)
[2018-12-18] MEDS: Glycopyrrolate 1 MG Tab PO SCH ×2 (09:05→20:55)
[2018-12-18] MEDS: Furosemide 40 MG/4 ML VIAL IVPUSH SCH (09:06)
[2018-12-18] MEDS: Carvedilol 12.5 MG Tab PO SCH ×3 (09:06→20:55)
[2018-12-18] MEDS: Fludrocortisone 0.1 MG Tab PO SCH (09:06)
[2018-12-18] MEDS ORDERED: Acetaminophen 325 MG Tab PO PRN (09:23)
--- NOTE | 2018-12-18 12:06 | PN ---
12/18/2018 PATIENT NAME: CIERRA PRADHAN SUBJECTIVE: This is an 78-year-old female who was admitted to the hospital yesterday directly from the clinic after receiving outpatient fluids on 12/16/2018. She did present to the clinic on 12/16/2018, complaining of weakness and increasing shortness of breath. Lab work was fairly stable on that day. She did receive 1 L of outpatient intravenous fluids with some improvement in the way she felt. She had fallen 2 times in the past week. She had some hip and back and rib pain. X-rays were obtained which were negative for any acute fractures. I called the patient yesterday with her x-ray reports and she continued to complain of being increasingly short of breath. Her son, Robert, brought her into the facility yesterday approximately 1 p.m. Since she had been seen and treated within the past 24 hours, she was admitted directly to inpatient care. She has been on telemetry. Initially, her heart rate was in the 100s to 120s. Her BNP had increased from 748 to 1180 yesterday. We did give her 40 mg of IV Lasix. Her heart rhythm and rate now are atrial fibrillation with a ventricular rate of 90 beats per minute. The patient's blood pressure was low this morning at 94/59. She is currently taking carvedilol 25 mg b.i.d. The nursing staff was instructed to just give her 12.5 mg of carvedilol this morning. She is anticoagulated with Xarelto for CVA prophylaxis. She does have COPD and has prescriptions for Flovent inhaler as well as Symbicort. She also has DuoNebs per nebulizer and a Ventolin inhaler. Apparently, she has not been using these medications at home. She does abuse alcohol and is most likely an alcoholic. She does take thiamine and folic acid. There has been no concern for alcohol withdrawal during her hospitalization here. She does have congestive heart failure and takes oral Lasix at home, which has been replaced by intravenous Lasix here. She has hypokalemia and is taking a potassium supplement. Her potassium today and on admission was 3.6. She does have a history of hypertension and is taking glycopyrrolate. She does have hypothyroidism as well, and her TSH has been measured recently and has been stable. When seeing the patient today, she does report feeling marginally better, but not significantly. She is still complaining of some shortness of breath. She reports that eating her breakfast this morning just wiped her out. She is on continuous oxygen, which she feels is beneficial. She does have an echocardiogram scheduled for today. This was previously scheduled after her last hospitalization and discharge, however, she canceled the study after being discharged from the hospital. She is also scheduled for an MRI of the brain today to rule out intracranial pathology. PHYSICAL EXAMINATION: VITAL SIGNS: Temperature is 99.2, pulse is 90 to 95, respirations are 20, blood pressure 94/59 with an oxygen saturation at 98% on 2 L of oxygen. SKIN: Warm and dry to touch. CARDIAC: An irregularly irregular rhythm. No murmur, click, or gallop is auscultated. LUNGS: Clear without rales, wheezes, or rhonchi. ABDOMEN: Soft, nontender without tenderness. Bowel sounds are present in all 4 quadrants. EXTREMITIES: There is no pedal edema. IMPRESSION: 1. Weakness, shortness of breath, and deconditioning with frequent falls. 2. Alcohol abuse, possible alcoholism. 3. Atrial fibrillation with controlled rate. 4. Congestive heart failure, stable. 5. Hypokalemia, stable. 6. Hypothyroidism, stable. 7. Chronic obstructive pulmonary disease with increased shortness of breath. The patient is doing somewhat better. PLAN: Keep her in inpatient for 3 days and possibly change to swing bed status on Saturday. Dr. Sharon Lanza will see her tomorrow and Saturday in my absence. I reviewed the patient's lab work from today, which is stable from admission. She does have hypoalbuminemia and is not eating well. Hopefully, we can correct this during her hospitalization. I did order a physical therapy consultation today. She is scheduled for echocardiogram and MRI of the brain today. Results are pending and will be communicated to her and her family when available. There is some discussion within the family members about possibly taking away her car keys. She does live independently in a town home in this community at this time. There has been a suggestion for assisted living in the past, however, I am not sure if she would qualify due to her increased falls and also her history of alcohol abuse. The patient is fiercely independent and is most likely to decline prison admission. Our plan is to keep her here to optimize her physical condition as much as possible. /[id number]/MODL
[2018-12-18] MEDS ORDERED: Gadobenate Dimeglumine 529 MG/ML 15 ML SDV IVPUSH ONE (15:36)
--- NOTE | 2018-12-18 16:32 | MR ---
[id number] MR/MRI Brain and Stem WWO IV EXAM: BRAIN MRI WITH AND WITHOUT CONTRAST INDICATION: DIZZINESS. COMPARISON: October 10, 2017 CT. DISCUSSION: Motion artifact somewhat limits this examination. There is mild generalized atrophy. Cavum septum pellucidum, a normal variant. Prominent left basal ganglia Virchow-Darwin space. Mild to moderate multifocal T2 hyperintensities are nonspecific, but generally ascribed to chronic small vessel ischemia. No mass effect, midline shift or cerebellar tonsillar ectopia. No restricted diffusion. No abnormal contrast enhancement. A limited look at the orbits, calvarium and paranasal sinuses is unremarkable. IMPRESSION: 1. Mild generalized atrophy. 2. [id number] chronic small vessel ischemic changes. Theodore Huston MD 12/18/18 [id number] Thank you for allowing us to participate in the care of your patient.
[2018-12-18] MEDS: Rivaroxaban 10 MG Tab PO SCH (20:54)
[2018-12-18] MEDS: Folic Acid 1 MG Tab PO SCH (20:54)
[2018-12-18] MEDS: Thiamine 100 MG Tab PO SCH (20:55)
[2018-12-19] MEDS: Levothyroxine 25 MCG Tab PO SCH (06:34)
[2018-12-19 08:03] LABS: ANION GAP 8.1 mmol/L (5-15); CHLORIDE,CL 101 mmol/L (98-115); SODIUM,NA 140 mmol/L (136-145)
[2018-12-19] MEDS ORDERED: methylPREDNISolone Sodium Succinate 125 MG/2 ML SDV IVPUSH ONE (09:21)
[2018-12-19] MEDS: Glycopyrrolate 1 MG Tab PO SCH ×2 (09:24→20:28)
[2018-12-19] MEDS: Carvedilol 12.5 MG Tab PO SCH ×2 (09:25→20:30)
--- NOTE | 2018-12-19 09:28 | PCM.PN ---
- General Info Date of Service: 12/19/18 Admission Dx/Problem (Free Text): Weakness, deconditioning, SOB. - Review of Systems Systems Review Comment:: Vickie is seen today on inpatient rounds. She was admitted directly from clinic on 12/17/18 due to 2 falls at home in the previous 2 weeks as well as SOB and deconditioning. She had received outpatient fluids, 1L, on 12/16/18 due to presumed dehydration. Upon admission her BNP had risen and so she was given IV lasix and had good urine outpatient and improvement in her SOB. She has chronic atrial fibrillation and her rate has been difficult to control as her BP does not tolerate higher doses of carvedilol and she is allergic to diltiazem. Her HR this morning is between 95-102. She endorses that while she overall feels better, she still feels like it is work to breathe. Appetite has been good. She is frustrated as she was told she cannot have caffeine and she usually only drinks 2 cups of coffee per day, if at all. She feels weak and tried to talk the hallway yesterday but "I got so tired I had to turn around". She really denies any pain. - Patient Data Vitals - Most Recent: Last Vital Signs Temp 98.7 F 12/19/18 06:20 Pulse 102 H 12/19/18 06:20 Resp 24 H 12/19/18 06:20 BP 106/68 12/19/18 06:20 Pulse Ox 95 12/19/18 06:20 Weight - Most Recent: 147 lb I&O - Last 24 Hours: Intake & Output 12/18/18 12/19/18 12/19/18 22:59 06:59 14:59 Intake Total 100 250 Output Total 200 Balance -100 250 Lab Results Last 24 Hours: Laboratory Results - last 24 hr 12/19/18 12/19/18 Range/Units 07:10 07:10 WBC 4.95 L (5.00-10.00) 10^3/uL RBC 3.10 L (3.80-5.50) 10^6/uL Hgb 10.4 L (12.0-16.0) g/dL Hct 31.7 L (37.0-47.0) % MCV 102.3 H (82.0-92.0) fL MCH 33.5 H (27.0-31.0) pg MCHC 32.8 (32.0-36.0) g/dL RDW 14.8 H (11.5-14.5) % Plt Count 131 L (150-400) 10^3/uL MPV 11.0 H (7.4-10.4) fL Immature Gran % (Auto) 0.6 (0.0-5.0) % Neut % (Auto) 76.6 H (50.0-70.0) % Lymph % (Auto) 10.5 L (20.0-40.0) % [place] % (Auto) 9.9 H (2.0-8.0) % Eos % (Auto) 1.4 (1.0-3.0) % Baso % (Auto) 1.0 (0.0-1.0) % Immature Gran # (Auto) 0.03 (0.00-0.50) 10^3/uL Neut # (Auto) 3.79 (2.50-7.00) 10^3/uL Lymph # (Auto) 0.52 L (1.00-4.00) 10^3/uL [place] # (Auto) 0.49 (0.10-0.80) 10^3/uL Eos # (Auto) 0.07 L (0.10-0.30) 10^3/uL Baso # (Auto) 0.05 (0.00-0.10) 10^3/uL Sodium 140 (136-145) mmol/L Potassium 3.3 (3.3-5.3) mmol/L Chloride 101 (98-115) mmol/L Carbon Dioxide 34.2 H (21.0-32.0) mmol/L Anion Gap 8.1 (5-15) mmol/L BUN 14 (6-25) mg/dL Creatinine 0.64 (0.51-1.17) mg/dL Est Cr Clr Drug Dosing 65.63 mL/min Estimated GFR (MDRD) > 60 mL/min Glucose 97 (75 - 99) mg/dL Calcium 8.5 L (8.7-10.3) mg/dL Total Bilirubin 1.7 H (0.2-1.0) mg/dL AST 69 H (15-37) U/L ALT 30 (12-78) U/L Alkaline Phosphatase 131 H (46-116) IU/L Total Protein 5.6 L (6.4-8.2) g/dL Albumin 2.30 L (3.00-4.80) g/dL Med Orders - Current: Current Medications Acetaminophen (Tylenol) 650 mg PO Q6H PRN PRN Reason: Pain Last Admin: 12/18/18 09:29 Dose: 650 mg Albuterol/Ipratropium (Duoneb 3.0-0.5 Mg/3 Ml) 3 ml NEB Q4HRRT PRN PRN Reason: shortness of breath Last Admin: 12/18/18 16:54 Dose: 3 ml Aspirin (Aspirin) 81 mg PO DAILY [facility] Last Admin: 12/18/18 09:05 Dose: 81 mg Atropine Sulfate (Atropine 0.1 Mg/Ml) 0 mg IVPUSH ASDIRECTED PRN PRN Reason: Heart. Carvedilol (Coreg) 25 mg PO BID [facility] Last Admin: 12/18/18 20:55 Dose: 25 mg Epinephrine HCl (Epinephrine 1:10,000) 1 mg IVPUSH ASDIRECTED PRN PRN Reason: Heart. Fludrocortisone Acetate (Florinef) 0.1 mg PO DAILY [facility] Last Admin: 12/18/18 09:06 Dose: 0.1 mg Folic Acid (Folic Acid) 1 mg PO BEDTIME [facility] Last Admin: 12/18/18 20:54 Dose: 1 mg Furosemide (Lasix) 40 mg IVPUSH DAILY [facility] Last Admin: 12/18/18 09:06 Dose: 40 mg Glycopyrrolate (Robinul) 0.5 mg PO BID [facility] Last Admin: 12/18/18 20:55 Dose: 0.5 mg Levothyroxine Sodium (Levothyroxine) 25 mcg PO ACBREAKFAST [facility] Last Admin: 12/19/18 06:34 Dose: 25 mcg Lidocaine HCl (Xylocaine 2%) 0 mg IVPUSH ASDIRECTED PRN PRN Reason: Heart. Methylprednisolone Sodium Succinate (Solu-Medrol) 125 mg IVPUSH ONETIME ONE Stop: 12/19/18 09:22 Nitroglycerin (Nitrostat) 0.4 mg SL ASDIRECTED PRN PRN Reason: Heart. Potassium Chloride (Klor-Con 10) 20 meq PO QAM [facility] Last Admin: 12/18/18 09:05 Dose: 20 meq Rivaroxaban (Xarelto) 20 mg PO BEDTIME [facility] Last Admin: 12/18/18 20:54 Dose: 20 mg Thiamine HCl (Vitamin B-1) 100 mg PO BEDTIME [facility] Last Admin: 12/18/18 20:55 Dose: 100 mg Tramadol HCl (Ultram) 50 mg PO Q6H PRN PRN Reason: Pain Discontinued Medications Furosemide (Lasix) 20 mg PO BID [facility] Furosemide (Lasix) 20 mg PO DAILY PRN PRN Reason: Edema Gadobenate Dimeglumine (Multihance) 15 ml IVPUSH ONETIME ONE Stop: 12/18/18 15:37 Rivaroxaban (Xarelto) 20 mg PO QPM [facility] Thiamine HCl (Vitamin B-1) 100 mg PO QPM [facility] - Exam Quality Assessment: Supplemental Oxygen General: Alert, Oriented, Cooperative, Other (She has increased work of breathing.) Lungs: Crackles (Fine bibasilar crackles), Wheezing (Scant wheezing in the right mid lung field.) Cardiovascular: No Murmurs, Irregular Rhythm Extremities: No Pedal Edema - Problem List & Annotations (1) Weakness SNOMED Code(s): 93296753 Code(s): R53.1 - WEAKNESS Status: Acute Current Visit: Yes (2) Physical deconditioning SNOMED Code(s): 26598177775778 Code(s): R53.81 - OTHER MALAISE Status: Acute Current Visit: Yes (3) Shortness of breath SNOMED Code(s): 999539294 Code(s): R06.02 - SHORTNESS OF BREATH Status: Acute Current Visit: Yes (4) Alcohol abuse SNOMED Code(s): 18004755 Code(s): F10.10 - ALCOHOL ABUSE, UNCOMPLICATED Status: Acute Current Visit: Yes (5) Atrial fibrillation SNOMED Code(s): 23789583 Code(s): I48.91 - UNSPECIFIED ATRIAL FIBRILLATION Status: Acute Current Visit: Yes (6) Hypothyroidism SNOMED Code(s): 01739416 Code(s): E03.9 - HYPOTHYROIDISM, UNSPECIFIED Status: Acute Current Visit : Yes (7) COPD (chronic obstructive pulmonary disease) SNOMED Code(s): 84274141 Code(s): J44.9 - CHRONIC OBSTRUCTIVE PULMONARY DISEASE, UNSPECIFIED Status : Acute Current Visit: Yes (8) Congestive heart failure SNOMED Code(s): 63159263 Code(s): I50.9 - HEART FAILURE, UNSPECIFIED Status: Chronic Current Visit : No (9) Hypokalemia SNOMED Code(s): 54788775 Code(s): E87.6 - HYPOKALEMIA Status: Resolved Current Visit: No - Problem List Review Problem List Initiated/Reviewed/Updated: Yes - My Orders Last 24 Hours: My Active Orders 12/19/18 09:20 Communication Order [RC] DAILY 12/19/18 09:21 methylPREDNISolone Sod Succ [Solu-MEDROL] 125 mg IVPUSH ONETIME ONE - Assessment Assessment:: Weakness SOB Deconditioning EtOH Abuse A-fib CHF Hypokalemia Hypothyroidism COPD Anemia - Plan Plan:: Weakness. PT consult today, anticipate swingbed placement tomorrow. SOB. Will administer solumedrol 125 mg IV today and see if this helps. Deconditioning. PT as above. EtOH Abuse. No evidence of withdrawal while in the hospital. A-fib. Recommend cardiology consultation as an outpatient for discussion of cardioversion due to symptomatic a-fib with hard to control rate. CHF. Stable, no additional lasix today. No IVF's. Hypokalemia. Resolved. Hypothyroidism. Adequately replaced. COPD. Solumedrol today as noted above. Anemia. Stable I am going to allow her to have caffeine as this 2 cups of coffee will not significantly increase her heart rate and this is something she will do as an outpatient. It is logical to have her doing things as close to her home environment and treat accordingly to help prevent readmission.
[2018-12-19] MEDS: Potassium Chloride 10 MEQ Tab.ER PO SCH (09:29)
[2018-12-19] MEDS: Furosemide 40 MG/4 ML VIAL IVPUSH SCH (09:30)
[2018-12-19] MEDS: Aspirin 81 MG Tab.Chew PO SCH (09:30)
[2018-12-19] MEDS: Fludrocortisone 0.1 MG Tab PO SCH (10:23)
[2018-12-19] MEDS: Rivaroxaban 10 MG Tab PO SCH (20:29)
[2018-12-19] MEDS: Thiamine 100 MG Tab PO SCH (20:30)
[2018-12-19] MEDS: Folic Acid 1 MG Tab PO SCH (20:30)
[2018-12-20] MEDS: Levothyroxine 25 MCG Tab PO SCH (07:27)
[2018-12-20 07:34] LABS: ANION GAP 10.4 mmol/L (5-15); CHLORIDE,CL 99 mmol/L (98-115); SODIUM,NA 138 mmol/L (136-145)
[2018-12-20] MEDS: Glycopyrrolate 1 MG Tab PO SCH (08:30)
[2018-12-20] MEDS: Fludrocortisone 0.1 MG Tab PO SCH (08:31)
[2018-12-20] MEDS: Aspirin 81 MG Tab.Chew PO SCH (08:31)
[2018-12-20] MEDS: Carvedilol 12.5 MG Tab PO SCH (08:32)
[2018-12-20] MEDS: Potassium Chloride 10 MEQ Tab.ER PO SCH (08:32)
[2018-12-20] MEDS: Furosemide 40 MG/4 ML VIAL IVPUSH SCH (08:33)
[2018-12-20 11:26] LABS: HEMOGLOBIN A1C 5.4 % (4.3-5.7)
[2018-12-20 19:20] VITALS: BP 106/64; PULSE 92
--- NOTE | 2018-12-20 19:47 | PCM.DCSUM1 ---
Discharge Summary - Hospital Course Free Text/Narrative:: Vickie is being discharged from an inpatient stay from 12/17/18-12/20/18 and being transitioned to [facility]. This document serves as her discharge summary from inpatient stay and admission to [facility]. She was admitted on 12/17/18 after being seen in clinic on 12/16/18 by Abbey Nichols PA-C, for weakness and increasing SOB. She has had a similar presentation in the past and has been dehydrated and so she received 1L of NS as an outpatient on 12/16 and was discharged to home. She did not improve overnight and presented back to the clinic and it was decided to directly admit her to the hospital for further treatment and therapy. She had fallen 2 times in the past 2 weeks, each time not being able to get herself up. One of the times, she crawled to the front door of her home (she lives independently) and was yelling for help and a neighbor was able to help her. Upon admission she had increasing weakness, increasing SOB. She has a hx of EtOH abuse and has had episodes of confusion and slurred speech even when her blood alcohol level was zero and and MRI was obtained which was negative. She also has atrial fibrillation which is difficult to control as he blood pressure is low at baseline and it is difficult to uptitrate her carvedilol. She has been reluctant to see cardiology to discuss possible cardioversion but she is now more amenable to this as she states "I don't want to live like this". She has been weak and her O2 has been dropping with exertion and her pulse increases over 100, getting into the 130's with activity. She was wheezing on admission and solumedrol 125 mg IV was given with improvement in her breathing. PT was consulted and it was determined she would be a candidate for [facility] for rehabilitation and she is being transitioned to [facility]. There have been on signs on EtOH withdrawal. Of note, her BNP increased and so lasix was given initially with good urine output. She had a TTE which did not show any evidence of CHF. She has a reported history of COPD but has not had formal spirometry and is non- compliant with inhalers at home. She is looking into getting lifeline at home. She will have spirometry testing done as part of her [facility] admission. She is overall, clinically improving. Discharge Diagnoses: Weakness. Transition to swingbed. SOB. Improving. Deconditioning. Swingbed. EtOH abuse. No signs of EtOH withdrawal. Atrial Fibrillation. Symptomatic, needs cardiology consultation, will arrange. Hypothyroidism. Stable. COPD. Will get spirometry to confirm. Former smoker, not currently smoking. Anemia. Stable. Modified Baring Scale: No Signif.Disability Despite Sympt.Able to Carry Out Usual Act./Duties Modified Tasia Scale Score: 1 - Discharge Data Discharge Date: 12/20/18 Discharge Disposition: DC/Tfer W/I Hosp To [facility] Condition: Good - Discharge Diagnosis/Problem(s) (1) Weakness SNOMED Code(s): 08065199 ICD Code: R53.1 - WEAKNESS Status: Acute Current Visit: Yes (2) Physical deconditioning SNOMED Code(s): 08640582178640 ICD Code: R53.81 - OTHER MALAISE Status: Acute Current Visit: Yes (3) Shortness of breath SNOMED Code(s): 520193911 ICD Code: R06.02 - SHORTNESS OF BREATH Status: Acute Current Visit: Yes (4) Alcohol abuse SNOMED Code(s): 21533864 ICD Code: F10.10 - ALCOHOL ABUSE, UNCOMPLICATED Status: Acute Current Visit: Yes (5) Atrial fibrillation SNOMED Code(s): 86093808 ICD Code: I48.91 - UNSPECIFIED ATRIAL FIBRILLATION Status: Acute Current Visit: Yes (6) Hypothyroidism SNOMED Code(s): 87831605 ICD Code: E03.9 - HYPOTHYROIDISM, UNSPECIFIED Status: Acute Current Visit : Yes (7) COPD (chronic obstructive pulmonary disease) SNOMED Code(s): 30343871 ICD Code: J44.9 - CHRONIC OBSTRUCTIVE PULMONARY DISEASE, UNSPECIFIED Status : Acute Current Visit: Yes (8) Congestive heart failure SNOMED Code(s): 82176280 ICD Code: I50.9 - HEART FAILURE, UNSPECIFIED Status: Chronic Current Visit: No - Patient Summary/Data Consults: Consultations 12/18/18 10:11 Consult to Physical Therapy [PT Evaluation and Treatment] [CONS] Routine - Patient Instructions Diet: Regular Diet as Tolerated - Discharge Plan *PRESCRIPTION DRUG MONITORING PROGRAM REVIEWED*: Not Applicable *COPY OF PRESCRIPTION DRUG MONITORING REPORT IN PATIENT DANYELLE: Not Applicable Home Medications: Home Meds Furosemide 20 mg PO BID 12/15/16 [History] Rivaroxaban [Xarelto] 20 mg PO DAILY tablet 12/30/17 [Rx] Ipratropium/Albuterol Sulfate [Iprat-Albut 0.5-3(2.5) mg/3 ml] 3 ml IH Q4H PRN 04/11/18 [History] Albuterol [Ventolin HFA] 2 puff INH BID PRN 08/22/18 [History] Thiamine HCl 100 mg PO BEDTIME 08/22/18 [History] traMADol HCl [Tramadol HCl] 50 mg PO Q6H PRN 08/22/18 [History] Folic Acid 1 mg PO BEDTIME tablet 08/23/18 [Rx] Carvedilol [Coreg] 25 mg PO BID 11/13/18 [History] Fludrocortisone [Florinef] 0.1 mg PO DAILY 11/13/18 [History] Glycopyrrolate [Robinul] 0.5 mg PO BID 11/13/18 [History] Levothyroxine Sodium [Synthroid] 25 mcg PO ACBREAKFAST 11/13/18 [History] Potassium Chloride [Klor-Con 10] 20 meq PO DAILY 11/13/18 [History] Budesonide/Formoterol [Symbicort 160-4.5 MCG] 1 puff INH BID PRN 12/17/18 [ History] Fluticasone Propionate [Flovent HFA 110 MCG] 1 puff INH BID 12/17/18 [History] Furosemide [Lasix] 20 mg PO DAILY PRN 12/17/18 [History] Albuterol/Ipratropium [DuoNeb 3.0-0.5 MG/3 ML] 3 ml NEB Q4HRRT PRN neb [Rx] - Discharge Summary/Plan Comment DC Time >30 min.: No - Patient Data Vitals - Most Recent: Last Vital Signs Temp 97.7 F 12/20/18 19:00 Pulse 92 12/20/18 19:00 Resp 20 12/20/18 19:00 BP 106/64 12/20/18 19:00 Pulse Ox 95 12/20/18 19:00 Weight - Most Recent: 144 lb 4 oz I&O - Last 24 hours: Intake & Output 12/20/18 12/20/18 12/20/18 06:59 14:59 22:59 Intake Total 0 270 Balance 0 270 Lab Results - Last 24 hrs: Laboratory Results - last 24 hr 12/20/18 12/20/18 12/20/18 Range/Units 06:50 06:50 06:50 WBC 4.56 L (5.00-10.00) 10^3/uL RBC 3.32 L (3.80-5.50) 10^6/uL Hgb 11.0 L (12.0-16.0) g/dL Hct 33.9 L (37.0-47.0) % MCV 102.1 H (82.0-92.0) fL MCH 33.1 H (27.0-31.0) pg MCHC 32.4 (32.0-36.0) g/dL RDW 14.8 H (11.5-14.5) % Plt Count 166 (150-400) 10^3/uL MPV 11.8 H (7.4-10.4) fL Immature Gran % (Auto) 0.4 (0.0-5.0) % Neut % (Auto) 78.1 H (50.0-70.0) % Lymph % (Auto) 10.1 L (20.0-40.0) % Campbell % (Auto) 10.5 H (2.0-8.0) % Eos % (Auto) 0.0 L (1.0-3.0) % Baso % (Auto) 0.9 (0.0-1.0) % Immature Gran # (Auto) 0.02 (0.00-0.50) 10^3/uL Neut # (Auto) 3.56 (2.50-7.00) 10^3/uL Lymph # (Auto) 0.46 L (1.00-4.00) 10^3/uL Campbell # (Auto) 0.48 (0.10-0.80) 10^3/uL Eos # (Auto) 0.00 L (0.10-0.30) 10^3/uL Baso # (Auto) 0.04 (0.00-0.10) 10^3/uL Sodium 138 (136-145) mmol/L Potassium 4.1 (3.3-5.3) mmol/L Chloride 99 (98-115) mmol/L Carbon Dioxide 32.7 H (21.0-32.0) mmol/L Anion Gap 10.4 (5-15) mmol/L BUN 17 (6-25) mg/dL Creatinine 0.57 (0.51-1.17) mg/dL Est Cr Clr Drug Dosing 73.69 mL/min Estimated GFR (MDRD) > 60 mL/min Glucose 170 H (75 - 99) mg/dL Hemoglobin A1c 5.4 (4.3-5.7) % Calcium 9.1 (8.7-10.3) mg/dL Total Bilirubin 1.6 H (0.2-1.0) mg/dL AST 77 H (15-37) U/L ALT 45 (12-78) U/L Alkaline Phosphatase 150 H (46-116) IU/L Total Protein 6.5 (6.4-8.2) g/dL Albumin 2.59 L (3.00-4.80) g/dL Med Orders - Current: Current Medications Acetaminophen (Tylenol) 650 mg PO Q6H PRN PRN Reason: Pain Last Admin: 12/18/18 09:29 Dose: 650 mg Albuterol/Ipratropium (Duoneb 3.0-0.5 Mg/3 Ml) 3 ml NEB Q4HRRT PRN PRN Reason: shortness of breath Last Admin: 12/18/18 16:54 Dose: 3 ml Aspirin (Aspirin) 81 mg PO DAILY [facility] Last Admin: 12/20/18 08:31 Dose: 81 mg Carvedilol (Coreg) 25 mg PO BID [facility] Last Admin: 12/20/18 08:32 Dose: 25 mg Fludrocortisone Acetate (Florinef) 0.1 mg PO DAILY [facility] Last Admin: 12/20/18 08:31 Dose: 0.1 mg Folic Acid (Folic Acid) 1 mg PO BEDTIME [facility] Last Admin: 12/19/18 20:30 Dose: 1 mg Furosemide (Lasix) 40 mg IVPUSH DAILY [facility] Last Admin: 12/20/18 08:33 Dose: 40 mg Glycopyrrolate (Robinul) 0.5 mg PO BID [facility] Last Admin: 12/20/18 08:30 Dose: 0.5 mg Levothyroxine Sodium (Levothyroxine) 25 mcg PO ACBREAKFAST [facility] Last Admin: 12/20/18 07:27 Dose: 25 mcg Lidocaine HCl (Xylocaine 2%) 0 mg IVPUSH ASDIRECTED PRN PRN Reason: Heart. Potassium Chloride (Klor-Con 10) 20 meq PO QAM [facility] Last Admin: 12/20/18 08:32 Dose: 20 meq Rivaroxaban (Xarelto) 20 mg PO BEDTIME [facility] Last Admin: 12/19/18 20:29 Dose: 20 mg Thiamine HCl (Vitamin B-1) 100 mg PO BEDTIME [facility] Last Admin: 12/19/18 20:30 Dose: 100 mg Tramadol HCl (Ultram) 50 mg PO Q6H PRN PRN Reason: Pain Discontinued Medications Atropine Sulfate (Atropine 0.1 Mg/Ml) 0 mg IVPUSH ASDIRECTED PRN PRN Reason: Heart. Epinephrine HCl (Epinephrine 1:10,000) 1 mg IVPUSH ASDIRECTED PRN PRN Reason: Heart. Furosemide (Lasix) 20 mg PO BID [facility] Furosemide (Lasix) 20 mg PO DAILY PRN PRN Reason: Edema Gadobenate Dimeglumine (Multihance) 15 ml IVPUSH ONETIME ONE Stop: 12/18/18 15:37 Last Admin: 12/18/18 15:30 Dose: 15 ml Methylprednisolone Sodium Succinate (Solu-Medrol) 125 mg IVPUSH ONETIME ONE Stop: 12/19/18 09:22 Last Admin: 12/19/18 10:19 Dose: 125 mg Nitroglycerin (Nitrostat) 0.4 mg SL ASDIRECTED PRN PRN Reason: Heart. Rivaroxaban (Xarelto) 20 mg PO QPM [facility] Thiamine HCl (Vitamin B-1) 100 mg PO QPM [facility] - Exam General: Reports: Alert, Oriented, Cooperative, No Acute Distress Lungs: Reports: Crackles (Fine crackles at the bases bilatearlly) Cardiovascular: Reports: No Murmurs, Irregular Rhythm GI/Abdominal Exam: Normal Bowel Sounds Extremities: No Pedal Edema
== END 2018-12-20 20:00 | disposition swing bed (61) | DRG 293 ==
LOC: UNDOADMIN 13:30 → KA.MS 13:30
DX: I11.0 Hypertensive heart disease with heart failure (principal); J44.9 Chronic obstructive pulmonary disease, unspecified; I50.9 Heart failure, unspecified; E78.5 Hyperlipidemia, unspecified; I95.9 Hypotension, unspecified; M54.5 Low back pain; E86.0 Dehydration; E03.9 Hypothyroidism, unspecified; I48.2 Chronic atrial fibrillation; E87.6 Hypokalemia; D64.9 Anemia, unspecified; F10.10 Alcohol abuse, uncomplicated; M16.0 Bilateral primary osteoarthritis of hip; Z87.891 Personal history of nicotine dependence; Z79.01 Long term (current) use of anticoagulants; Z98.890 Other specified postprocedural states; Z98.49 Cataract extraction status, unspecified eye; Z88.8 Allergy status to other drugs, medicaments and biological substances; Z88.2 Allergy status to sulfonamides; Z79.899 Other long term (current) drug therapy; Z91.19 Patient's noncompliance with other medical treatment and regimen; Z79.51 Long term (current) use of inhaled steroids
CPT/HCPCS: 36415; 70553; 80053; 83036; 83880; 85025; 85379; 93306; 94640; 97161-GP; A9270-GY; A9577; J1940; J2930; J7620-GY

== ENCOUNTER 2018-12-20 11:38 | Inpatient (IN) | payer MEDICARE, OTHER ==
[2018-12-20] MEDS ORDERED: Lidocaine 2% 100 MG/5 ML Syringe IVPUSH PRN (20:00)
[2018-12-20] MEDS: Albuterol/Ipratropium 3.0-0.5 MG/3 ML Neb Soln NEB PRN (20:30)
[2018-12-20] MEDS ORDERED: traMADol 50 MG Tab PO PRN (21:00)
[2018-12-20] MEDS ORDERED: Non-Formulary Medication 1 Each (Budesonide/Formoterol 1 PUFF) INH PRN (21:00)
[2018-12-20] MEDS ORDERED: Glycopyrrolate 1 MG Tab PO SCH (21:00)
[2018-12-20] MEDS ORDERED: Furosemide 20 MG Tab PO PRN (21:00)
[2018-12-20] MEDS ORDERED: Albuterol/Ipratropium 3.0-0.5 MG/3 ML Neb Soln NEB PRN (21:00)
[2018-12-20] MEDS ORDERED: Thiamine 100 MG Tab PO SCH (21:00)
[2018-12-20] MEDS ORDERED: Rivaroxaban 10 MG Tab PO SCH (21:00)
[2018-12-20] MEDS ORDERED: Folic Acid 1 MG Tab PO SCH (21:00)
[2018-12-20] MEDS ORDERED: Non-Formulary Medication 1 Each (Carvedilol [Coreg] 25 MG) PO SCH (21:00)
[2018-12-20] MEDS: Folic Acid 1 MG Tab PO SCH (21:50)
[2018-12-20] MEDS: Thiamine 100 MG Tab PO SCH (21:50)
[2018-12-20] MEDS: Furosemide 20 MG Tab PO SCH (21:50)
[2018-12-20] MEDS: Glycopyrrolate 1 MG Tab PO SCH (21:51)
[2018-12-20] MEDS: Carvedilol 12.5 MG Tab PO SCH (21:56)
[2018-12-20] MEDS: Fluticasone Propionate 110 MCG/Puff 12 GM Inhaler INH SCH (21:57)
[2018-12-21] MEDS: Levothyroxine 25 MCG Tab PO SCH (06:37)
[2018-12-21] MEDS ORDERED: Levothyroxine 25 MCG Tab PO SCH (07:30)
[2018-12-21] MEDS: Aspirin 81 MG Tab.Chew PO SCH (08:25)
[2018-12-21] MEDS: Glycopyrrolate 1 MG Tab PO SCH ×2 (08:25→20:18)
[2018-12-21] MEDS: Potassium Chloride 10 MEQ Tab.ER PO SCH (08:26)
[2018-12-21] MEDS: Fludrocortisone 0.1 MG Tab PO SCH (08:26)
[2018-12-21] MEDS: Furosemide 20 MG Tab PO SCH ×2 (08:26→20:21)
[2018-12-21] MEDS: Carvedilol 12.5 MG Tab PO SCH ×2 (08:26→20:16)
[2018-12-21] MEDS: Fluticasone Propionate 110 MCG/Puff 12 GM Inhaler INH SCH (08:27)
[2018-12-21] MEDS ORDERED: Furosemide 40 MG/4 ML VIAL IVPUSH SCH (09:00)
[2018-12-21] MEDS ORDERED: Rivaroxaban 10 MG Tab PO SCH (09:00)
[2018-12-21] MEDS ORDERED: Aspirin 81 MG Tab.Chew PO SCH (09:00)
[2018-12-21] MEDS ORDERED: Potassium Chloride 10 MEQ Tab.ER PO SCH (09:00)
[2018-12-21] MEDS ORDERED: Fludrocortisone 0.1 MG Tab PO SCH (09:00)
[2018-12-21] MEDS: Rivaroxaban 10 MG Tab PO SCH (10:37)
[2018-12-21] MEDS: Nystatin Susp 100,000 Unit/ML 5 ML UD Cup PO SCH ×2 (16:59→20:19)
[2018-12-21] MEDS: Thiamine 100 MG Tab PO SCH (20:15)
[2018-12-21] MEDS: Folic Acid 1 MG Tab PO SCH (20:18)
[2018-12-22] MEDS: Levothyroxine 25 MCG Tab PO SCH (06:30)
[2018-12-22] MEDS: Aspirin 81 MG Tab.Chew PO SCH (09:14)
[2018-12-22] MEDS: Glycopyrrolate 1 MG Tab PO SCH ×2 (09:14→21:18)
[2018-12-22] MEDS: Fludrocortisone 0.1 MG Tab PO SCH (09:14)
[2018-12-22] MEDS: Rivaroxaban 10 MG Tab PO SCH (09:14)
[2018-12-22] MEDS: Potassium Chloride 10 MEQ Tab.ER PO SCH (09:14)
[2018-12-22] MEDS: Carvedilol 12.5 MG Tab PO SCH ×2 (09:14→21:17)
[2018-12-22] MEDS: Furosemide 20 MG Tab PO SCH ×2 (09:14→21:18)
[2018-12-22] MEDS: Nystatin Susp 100,000 Unit/ML 5 ML UD Cup PO SCH ×4 (09:15→21:18)
[2018-12-22] MEDS: Acetaminophen 325 MG Tab PO PRN (16:55)
[2018-12-22] MEDS: traMADol 50 MG Tab PO PRN (16:58)
[2018-12-22] MEDS: Folic Acid 1 MG Tab PO SCH (21:18)
[2018-12-22] MEDS: Thiamine 100 MG Tab PO SCH (21:19)
[2018-12-23] MEDS: Levothyroxine 25 MCG Tab PO SCH (06:48)
[2018-12-23 07:51] LABS: ANION GAP 12.5 mmol/L (5-15); CHLORIDE,CL 99 mmol/L (98-115); SODIUM,NA 140 mmol/L (136-145)
[2018-12-23] MEDS: Nystatin Susp 100,000 Unit/ML 5 ML UD Cup PO SCH ×4 (08:45→20:19)
[2018-12-23] MEDS: Aspirin 81 MG Tab.Chew PO SCH (08:45)
[2018-12-23] MEDS: Potassium Chloride 10 MEQ Tab.ER PO SCH (08:46)
[2018-12-23] MEDS: Rivaroxaban 10 MG Tab PO SCH (08:46)
[2018-12-23] MEDS: Fludrocortisone 0.1 MG Tab PO SCH (08:46)
[2018-12-23] MEDS: Furosemide 20 MG Tab PO SCH ×2 (08:46→18:16)
[2018-12-23] MEDS: Glycopyrrolate 1 MG Tab PO SCH ×2 (08:46→20:17)
[2018-12-23] MEDS: Carvedilol 12.5 MG Tab PO SCH ×2 (08:46→20:18)
[2018-12-23] MEDS ORDERED: Furosemide 20 MG Tab PO ONE (09:32)
[2018-12-23] MEDS: Albuterol/Ipratropium 3.0-0.5 MG/3 ML Neb Soln NEB PRN (10:34)
--- NOTE | 2018-12-23 11:43 | PN ---
12/23/2018 PATIENT NAME: CIERRA PRADHAN SUBJECTIVE: This is an 78-year-old female who is being seen today in swing bed care. She was transferred to swing bed care on 12/20/2018. She was admitted to acute care last week for increased falls at home, deconditioning, and increasing shortness of breath. She has had several clinic visits and hospitalizations due to the same. She has fallen 2 times in the past 2 weeks at home. She was unable to get herself up. One of the time, she crawled to the front door of her home and was yelling for help. A neighbor was able to help her. She does have a history of alcohol abuse. MRI of the brain was obtained during her acute admission and was negative. She has had an echocardiogram performed; however, the results are not known yet. She has an upcoming appointment with Cardiology to discuss possible cardioversion. This was in January. She is receiving physical therapy and progressing quite nicely. She has some shortness of breath episodes. However, I believe that these have improved somewhat. She is being evaluated for home oxygen. Last evening while walking outside, she fell and sustained several skin tears, 1 to her left antecubital space, 1 to her left forearm, right forearm, and right lower leg. These were covered with Tegaderm and also dressed with Coban. The patient is anticipating staying through the end of the week. At that time, discharge will be discussed. LABORATORY DATA: Pertinent lab data from today includes a WBC of 4.32. RBCs are 3.12. Hemoglobin is 10.5. Platelets are normal at 166,000. Chemistry profile shows sodium of 140, which is normal. Potassium is normal at 3.7. Carbon dioxide is elevated at 32.2. BUN and creatinine are normal at 10 and 0.56 with a GFR of greater than 60. AST is elevated at 84, which is stable from past readings. Alkaline phosphatase is elevated at 136. Total protein and albumin are low at 5.6 and 2.33 respectively. OBJECTIVE: VITAL SIGNS: Temp is 98, pulse 84, respirations 20, blood pressure 89/55. Her weight is 147, which is up 5 pounds from yesterday. SKIN: Warm and dry to touch. I do appreciate and have observed the skin tears that she sustained on her fall last evening. These are dressed adequately. They will take some time to heal. CARDIAC: Exam reveals an irregularly irregular rhythm. No murmur, click, or gallop is auscultated. LUNGS: Clear without rales, wheezes, or rhonchi. ABDOMEN: Soft, nontender. EXTREMITIES: There is no pedal edema. IMPRESSION: 1. Deconditioning. She is being seen by Physical Therapy and will continue this throughout the rest of her swing bed stay. 2. History of frequent falling at home and a recent fall just last evening here. 3. Atrial fibrillation with rapid ventricular response. Rate is controlled and has improved considerably. 4. Congestive heart failure. She is taking 20 mg of Lasix b.i.d. She has refused the evening dose since it had been scheduled at 9:00 p.m. She is up 5 pounds. We will give her an additional 20 mg of Lasix this morning for a total dose of 40 mg x1 and resume 20 b.i.d. going forward. We have moved the administration time of the evening Lasix to 5:00 p.m., previously 9:00 p.m. We will continue to follow. /[id number]/MODL
[2018-12-23] MEDS: Acetaminophen 325 MG Tab PO PRN ×2 (11:58→20:16)
[2018-12-23] MEDS ORDERED: chlordiazePOXIDE 10 MG Cap PO PRN (15:58)
[2018-12-23] MEDS: Thiamine 100 MG Tab PO SCH (20:17)
[2018-12-23] MEDS: Folic Acid 1 MG Tab PO SCH (20:18)
[2018-12-24] MEDS: Levothyroxine 25 MCG Tab PO SCH (07:31)
[2018-12-24] MEDS: Acetaminophen 325 MG Tab PO PRN (07:32)
[2018-12-24] MEDS: Glycopyrrolate 1 MG Tab PO SCH ×2 (08:27→20:26)
[2018-12-24] MEDS: Furosemide 20 MG Tab PO SCH ×3 (08:27→18:33)
[2018-12-24] MEDS: Aspirin 81 MG Tab.Chew PO SCH (08:29)
[2018-12-24] MEDS: Rivaroxaban 10 MG Tab PO SCH (08:29)
[2018-12-24] MEDS: Potassium Chloride 10 MEQ Tab.ER PO SCH (08:30)
[2018-12-24] MEDS: Fludrocortisone 0.1 MG Tab PO SCH (08:31)
[2018-12-24] MEDS: Nystatin Susp 100,000 Unit/ML 5 ML UD Cup PO SCH ×4 (08:35→20:26)
[2018-12-24] MEDS: Carvedilol 12.5 MG Tab PO SCH ×2 (08:36→20:28)
[2018-12-24] MEDS: Folic Acid 1 MG Tab PO SCH (20:28)
[2018-12-24] MEDS: Thiamine 100 MG Tab PO SCH (20:28)
[2018-12-25] MEDS: Albuterol/Ipratropium 3.0-0.5 MG/3 ML Neb Soln NEB PRN (05:37)
[2018-12-25] MEDS: Acetaminophen 325 MG Tab PO PRN (05:45)
[2018-12-25] MEDS: Levothyroxine 25 MCG Tab PO SCH (07:38)
[2018-12-25] MEDS: Fludrocortisone 0.1 MG Tab PO SCH (08:29)
[2018-12-25] MEDS: Aspirin 81 MG Tab.Chew PO SCH (08:29)
[2018-12-25] MEDS: Rivaroxaban 10 MG Tab PO SCH (08:29)
[2018-12-25] MEDS: Carvedilol 12.5 MG Tab PO SCH ×2 (08:29→20:43)
[2018-12-25] MEDS: Furosemide 20 MG Tab PO SCH (08:29)
[2018-12-25] MEDS: Glycopyrrolate 1 MG Tab PO SCH ×2 (08:29→20:41)
[2018-12-25] MEDS: Nystatin Susp 100,000 Unit/ML 5 ML UD Cup PO SCH (08:29)
[2018-12-25] MEDS: Potassium Chloride 10 MEQ Tab.ER PO SCH (08:29)
[2018-12-25] MEDS: Thiamine 100 MG Tab PO SCH (20:42)
[2018-12-25] MEDS: Folic Acid 1 MG Tab PO SCH (20:42)
[2018-12-26] MEDS: Levothyroxine 25 MCG Tab PO SCH (07:25)
[2018-12-26] MEDS ORDERED: Budesonide/Formoterol 80-4.5 MCG/Puff 10.2 GM Inhaler INH ONE (09:00)
[2018-12-26] MEDS ORDERED: Budesonide/Formoterol 16-4.5 MCG/Puff 10.2 GM Inhaler INH ONE (09:00)
[2018-12-26] MEDS: Potassium Chloride 10 MEQ Tab.ER PO SCH (10:10)
[2018-12-26] MEDS: Rivaroxaban 10 MG Tab PO SCH (10:10)
[2018-12-26] MEDS: Aspirin 81 MG Tab.Chew PO SCH (10:10)
[2018-12-26] MEDS: Glycopyrrolate 1 MG Tab PO SCH ×2 (10:10→21:25)
[2018-12-26] MEDS: Carvedilol 12.5 MG Tab PO SCH ×2 (10:11→21:25)
[2018-12-26] MEDS: Furosemide 40 MG Tab PO SCH (10:11)
[2018-12-26] MEDS: Fludrocortisone 0.1 MG Tab PO SCH (10:11)
[2018-12-26] MEDS: Albuterol/Ipratropium 3.0-0.5 MG/3 ML Neb Soln NEB PRN (10:16)
[2018-12-26] MEDS: traMADol 50 MG Tab PO PRN (13:45)
[2018-12-26] MEDS: FORMOTEROL INH SCH ×2 (16:00→17:56)
[2018-12-26] MEDS: BUDESONIDE INH SCH ×2 (16:00→17:56)
[2018-12-26] MEDS: Folic Acid 1 MG Tab PO SCH (21:26)
[2018-12-26] MEDS: Thiamine 100 MG Tab PO SCH (21:26)
[2018-12-27] MEDS: Levothyroxine 25 MCG Tab PO SCH (07:40)
[2018-12-27] MEDS: BUDESONIDE INH SCH ×2 (09:35→17:59)
[2018-12-27] MEDS: Rivaroxaban 10 MG Tab PO SCH (09:35)
[2018-12-27] MEDS: FORMOTEROL INH SCH ×2 (09:35→17:59)
[2018-12-27] MEDS: Fludrocortisone 0.1 MG Tab PO SCH (09:36)
[2018-12-27] MEDS: Glycopyrrolate 1 MG Tab PO SCH ×2 (09:36→20:45)
[2018-12-27] MEDS: Furosemide 40 MG Tab PO SCH (09:37)
[2018-12-27] MEDS: Carvedilol 12.5 MG Tab PO SCH ×2 (09:37→20:45)
[2018-12-27] MEDS: Potassium Chloride 10 MEQ Tab.ER PO SCH (09:37)
[2018-12-27] MEDS: Aspirin 81 MG Tab.Chew PO SCH (09:38)
[2018-12-27] MEDS: Folic Acid 1 MG Tab PO SCH (20:46)
[2018-12-27] MEDS: Thiamine 100 MG Tab PO SCH (20:46)
[2018-12-27] MEDS: traMADol 50 MG Tab PO PRN (20:46)
[2018-12-28] MEDS: Levothyroxine 25 MCG Tab PO SCH (07:48)
[2018-12-28] MEDS: Glycopyrrolate 1 MG Tab PO SCH ×2 (08:44→21:41)
[2018-12-28] MEDS: Potassium Chloride 10 MEQ Tab.ER PO SCH (08:44)
[2018-12-28] MEDS: Rivaroxaban 10 MG Tab PO SCH (08:44)
[2018-12-28] MEDS: Furosemide 40 MG Tab PO SCH (08:44)
[2018-12-28] MEDS: Fludrocortisone 0.1 MG Tab PO SCH (08:44)
[2018-12-28] MEDS: Aspirin 81 MG Tab.Chew PO SCH (08:44)
[2018-12-28] MEDS: FORMOTEROL INH SCH ×2 (09:00→17:57)
[2018-12-28] MEDS: BUDESONIDE INH SCH ×2 (09:00→17:57)
[2018-12-28] MEDS: traMADol 50 MG Tab PO PRN ×2 (13:23→19:33)
[2018-12-28] MEDS ORDERED: Trolamine Salicylate/Aloe Vera 10% Crm 85 GM Tube TOP PRN (14:00)
[2018-12-28] MEDS: Acetaminophen 325 MG Tab PO PRN ×2 (14:31→21:40)
[2018-12-28] MEDS ORDERED: Carvedilol 12.5 MG Tab PO ONE (21:03)
[2018-12-28] MEDS: Carvedilol 12.5 MG Tab PO SCH (21:29)
[2018-12-28] MEDS: Folic Acid 1 MG Tab PO SCH (21:40)
[2018-12-28] MEDS: Thiamine 100 MG Tab PO SCH (21:40)
[2018-12-29] MEDS: BUDESONIDE INH SCH ×2 (09:01→18:16)
[2018-12-29] MEDS: FORMOTEROL INH SCH ×2 (09:01→18:16)
[2018-12-29] MEDS: Fludrocortisone 0.1 MG Tab PO SCH (09:25)
[2018-12-29] MEDS: Rivaroxaban 10 MG Tab PO SCH (09:25)
[2018-12-29] MEDS: Aspirin 81 MG Tab.Chew PO SCH (09:25)
[2018-12-29] MEDS: Potassium Chloride 10 MEQ Tab.ER PO SCH (09:25)
[2018-12-29] MEDS: Furosemide 40 MG Tab PO SCH (09:25)
[2018-12-29] MEDS: Glycopyrrolate 1 MG Tab PO SCH ×2 (09:25→20:54)
[2018-12-29] MEDS: Levothyroxine 25 MCG Tab PO SCH (09:26)
[2018-12-29] MEDS: Carvedilol 12.5 MG Tab PO SCH ×2 (10:19→20:53)
[2018-12-29] MEDS: traMADol 50 MG Tab PO PRN ×2 (13:22→19:20)
[2018-12-29] MEDS: Acetaminophen 325 MG Tab PO PRN ×2 (13:27→19:19)
--- NOTE | 2018-12-29 16:32 | PN ---
12/29/2018 PATIENT NAME: CIERRA PRADHAN SUBJECTIVE: This is an 78-year-old female, who is being seen in swing bed rounds today. She was transferred to swing bed from acute care on 12/20/2018. She was admitted to acute care initially for increased falls at home, deconditioning, and increasing shortness of breath. She has had 1 fall since being in the hospital. She wandered outside last week on 12/22/2018 and fell down sustaining several skin tears. She also has had some problems with some mental confusion, but is easily redirected. She did have an MRI of the brain, which was normal. She also had an echocardiogram performed, which showed an ejection fraction of 60% to 65% with just mild valvular abnormalities. She does have an upcoming appointment with Cardiology to discuss possible cardioversion for atrial fibrillation. She is receiving physical therapy and progressing quite nicely. She does have some shortness of breath and is using some oxygen as needed. She is being evaluated for home oxygen as well. The initial plan was to keep her the remainder of last week; however, care conference was held on 12/25/2018 which included certified social workers in health care, Ronny Mares, as well as physical therapy, nursing, family members, and myself. It was deemed that the patient is really not ready to go home. Physical therapy thinks she still has some work to do to get stronger to be able to return to an independent living situation. She has been agreeable with this. She did have some chest pain last evening. An EKG was obtained, which showed no significant abnormalities. She also had troponin which was less than 0.04. The remainder of her labs have been quite stable. The last lab work being drawn on 12/23/2018. The patient is hypotensive and is taking Florinef for the same. Sometimes her blood pressure is so low that her Coreg has been held. She also has had some episodes of bradycardia, which have prompted the holding of her Coreg as well. OBJECTIVE: VITAL SIGNS: Temperature is 96.8, pulse 80 and irregular, respirations 16, blood pressure 93/60, and her O2 saturation is 97% on room air. SKIN: Warm and dry to touch. CARDIAC: Reveals an irregularly irregular rhythm. No murmur, click, or gallop is auscultated. LUNGS: Clear without rales, wheezes, or rhonchi. ABDOMEN: Soft and nontender. Bowel sounds present in all 4 quadrants. EXTREMITIES: There is no pedal edema. IMPRESSION: 1. Deconditioning with history of falls at home and one in the hospital as well. She is improving with physical therapy, and we will await their recommendation for discharge. Plan is to discharge at the end of this week. 2. Atrial fibrillation with variable rate. She does have an upcoming appointment with Cardiology to discuss possible cardioversion. She is on carvedilol as well as Xarelto. She is on an aspirin as well. 3. Hypotension. She is on Florinef. Carvedilol will be decreased to 12.5 mg bid. 4. Hypokalemia. This has been stable. 5. Hypothyroidism. This has been stable. 6. She does complain of some intermittent headaches, which have responded to tramadol. She has also been using a topical Emu cream that she has been using at home for the same with some relief. 7. We will continue to follow. She will continue the same medications. Last week, she was started back on Symbicort, which has been somewhat effective. Our plan is to optimize her to return home to independent living situation. /[id number]/MODL MTDD
[2018-12-29] MEDS: Folic Acid 1 MG Tab PO SCH (20:53)
[2018-12-29] MEDS: Thiamine 100 MG Tab PO SCH (20:54)
[2018-12-30] MEDS: Levothyroxine 25 MCG Tab PO SCH (06:40)
[2018-12-30] MEDS: BUDESONIDE INH SCH ×2 (08:47→18:03)
[2018-12-30] MEDS: FORMOTEROL INH SCH ×2 (08:47→18:03)
[2018-12-30] MEDS: Glycopyrrolate 1 MG Tab PO SCH ×2 (09:21→20:30)
[2018-12-30] MEDS: Furosemide 40 MG Tab PO SCH (09:21)
[2018-12-30] MEDS: Rivaroxaban 10 MG Tab PO SCH (09:22)
[2018-12-30] MEDS: Aspirin 81 MG Tab.Chew PO SCH (09:22)
[2018-12-30] MEDS: Fludrocortisone 0.1 MG Tab PO SCH (09:22)
[2018-12-30] MEDS: Potassium Chloride 10 MEQ Tab.ER PO SCH (09:22)
[2018-12-30] MEDS: Carvedilol 12.5 MG Tab PO SCH ×2 (09:22→20:31)
[2018-12-30] MEDS: Thiamine 100 MG Tab PO SCH (20:29)
[2018-12-30] MEDS: Folic Acid 1 MG Tab PO SCH (20:29)
[2018-12-30] MEDS: traMADol 50 MG Tab PO PRN (21:36)
[2018-12-30] MEDS: Acetaminophen 325 MG Tab PO PRN (21:38)
[2018-12-31] MEDS: Levothyroxine 25 MCG Tab PO SCH (07:37)
[2018-12-31] MEDS: FORMOTEROL INH SCH ×2 (08:55→18:16)
[2018-12-31] MEDS: BUDESONIDE INH SCH ×2 (08:55→18:16)
--- NOTE | 2018-12-31 08:55 | PCM.SN ---
- Free Text/Narrative Note: I was asked to evaluate Vickie today due to bluish discoloration to her toes, more significant on her right foot than her left. She dies have some discoloration but her toes are warm. I am unable to palpate a DP pulse bilaterally. She does have ecchymosis on right pavon from a fall as well as pitting edema bilaterally. She declines JEAN CARLOS stockings or an extra lasix does states "I'm going to a football game this afternoon". Will get arterial duplex studies to evaluate for vascular disease. She is amenable to this.
[2018-12-31] MEDS: Albuterol/Ipratropium 3.0-0.5 MG/3 ML Neb Soln NEB PRN (09:04)
[2018-12-31] MEDS: Glycopyrrolate 1 MG Tab PO SCH ×2 (09:08→21:04)
[2018-12-31] MEDS: Aspirin 81 MG Tab.Chew PO SCH (09:08)
[2018-12-31] MEDS: Fludrocortisone 0.1 MG Tab PO SCH (09:08)
[2018-12-31] MEDS: Furosemide 40 MG Tab PO SCH (09:08)
[2018-12-31] MEDS: Potassium Chloride 10 MEQ Tab.ER PO SCH (09:08)
[2018-12-31] MEDS: Rivaroxaban 10 MG Tab PO SCH (09:08)
[2018-12-31] MEDS: Carvedilol 12.5 MG Tab PO SCH ×2 (09:09→21:03)
--- NOTE | 2018-12-31 11:59 | US ---
[id number] US/US Arterial Venous LE Mitesh Exam: US Arterial Venous LE Mitesh Clinical Data: ISCHEMIC TOES COMPARISON: NO PREVIOUS SIMILAR EXAM IS AVAILABLE FINDINGS: There is decreased velocity of the left dorsalis pedis artery. There is decreased velocity of the left anterior tibial artery. There is moderate atheromatous plaque of the femoral artery bilaterally. IMPRESSION: MILD TO MODERATE LEFT INFRAPOPLITEAL DISEASE. 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 IF THE PATIENT HAS MICROGRAM BUT THE TOES SUCH CHOLESTEROL EMBOLI, ULTRASOUND ALONE MAY BE NORMAL. [place] MD 12/31/18 [id number] Thank you for allowing us to participate in the care of your patient.
[2018-12-31] MEDS: Acetaminophen 325 MG Tab PO PRN ×2 (12:50→21:05)
[2018-12-31] MEDS: traMADol 50 MG Tab PO PRN ×2 (12:50→21:04)
[2018-12-31] MEDS: Thiamine 100 MG Tab PO SCH (21:04)
[2018-12-31] MEDS: Folic Acid 1 MG Tab PO SCH (21:04)
[2019-01-01] MEDS: Levothyroxine 25 MCG Tab PO SCH (06:47)
[2019-01-01] MEDS: Albuterol/Ipratropium 3.0-0.5 MG/3 ML Neb Soln NEB PRN (08:52)
[2019-01-01] MEDS: Carvedilol 12.5 MG Tab PO SCH ×2 (08:55→21:00)
[2019-01-01] MEDS: Aspirin 81 MG Tab.Chew PO SCH (08:55)
[2019-01-01] MEDS: Fludrocortisone 0.1 MG Tab PO SCH (08:56)
[2019-01-01] MEDS: Glycopyrrolate 1 MG Tab PO SCH ×2 (08:56→20:59)
[2019-01-01] MEDS: Furosemide 40 MG Tab PO SCH (08:56)
[2019-01-01] MEDS: Potassium Chloride 10 MEQ Tab.ER PO SCH (08:56)
[2019-01-01] MEDS: Rivaroxaban 10 MG Tab PO SCH (08:57)
[2019-01-01] MEDS: FORMOTEROL INH SCH ×2 (09:50→18:44)
[2019-01-01] MEDS: BUDESONIDE INH SCH ×2 (09:50→18:44)
--- NOTE | 2019-01-01 15:10 | PN ---
01/01/2019 PATIENT NAME: CIERRA PRADHAN SUBJECTIVE: This is an 78-year-old female, who is being seen today for swing bed rounds. The patient was admitted to swing bed on 12/20/2018. She was admitted to acute care initially for increased falls at home, deconditioning, and increasing shortness of breath. She has had 1 fall since being in the hospital. She wandered outside last week and fell sustaining several skin tears. The patient had some problems with mental confusion. MRI of the brain was performed and was found to be normal. She also had an echocardiogram performed, which showed an ejection fraction of 60% to 65% with just mild valvular abnormalities. She does have an upcoming scheduled appointment with Cardiology to discuss possible cardioversion for atrial fibrillation. She is receiving physical therapy and is slowly progressing. Physical Therapy is not ready to discharge her as of yet. She still has some work to do to become stronger before being discharged. She is being followed by Respiratory Therapy as well. She still desaturates to 85% with activity. We are planning to discharge her for home oxygen. A care conference was held on 12/25/2018 to discuss extension of hospital stay. rubber factory worker, Ronny Mares facilitated the meeting, which was attended by physical therapy, nursing, family members and myself. The patient will continue to stay in swing bed until she is stronger and has a better respiratory status. We have resumed her Symbicort while in the hospital. She is also on nebulizer treatments and daily respiratory therapy. She did have some chest pain on 12/19/2018, with a normal EKG and troponin level. She has been hypotensive as well as bradycardic at this point in time. She is on Florinef for hypotension. We have cut her Coreg dose in half from 25 b.i.d. to 12.5 b.i.d. and this seems to be easier on her blood pressure as well as her heart rate. Labs have not been done since 12/23/2018. We will plan to have a CBC and CMP tomorrow. OBJECTIVE: VITAL SIGNS: Temp is 95, pulse 82, respirations 20, blood pressure 105/62, oxygen saturation 98% on room air. SKIN: Warm and dry to touch. She does have various ecchymotic areas as well as healing skin tears from prior falls. CARDIAC: Reveals an irregularly irregular rhythm with a controlled rate of 72 beats per minute apically. No murmur, click, or gallop is auscultated. LUNGS: Clear without rales, wheezes, or rhonchi. ABDOMEN: Soft, nontender. Bowel sounds present in all 4 quadrants. There is no pedal edema. IMPRESSION: 1. Deconditioning and frequent falls. We will continue to keep her in swing bed for possibly another week for physical therapy. 2. Shortness of breath with desaturation with activity. She will continue to be followed by Respiratory Therapy. She will be evaluated for home O2. 3. Hypotension. She is on Florinef and Coreg dose has been adjusted as well. 4. Atrial fibrillation with variable rate. The patient does have an upcoming appointment with Cardiology to discuss possible cardioversion. She is taking carvedilol as well as Xarelto. She is on a daily aspirin regimen also. 5. Hypokalemia. This is stable. 6. Hypothyroidism, stable. 7. She does complain of intermittent headaches, which she has used tramadol for. She is also using topical Emu cream, which she has been using at home. She has also had a massage therapist comes to the hospital to give her massage, which she has had some relief from. 8. She had a purple color to her toes yesterday. She did have an arterial Doppler of her lower extremities performed yesterday, which showed mild-to- moderate left intra-popliteal disease; mild to moderate bilateral femoral artery disease. No severe stenosis to explain the cyanosis. This may be just a dependent cyanosis. We will continue to follow. /[id number]/MODL
[2019-01-01] MEDS: Acetaminophen 325 MG Tab PO PRN ×2 (16:28→22:02)
[2019-01-01] MEDS: Thiamine 100 MG Tab PO SCH (20:59)
[2019-01-01] MEDS: Folic Acid 1 MG Tab PO SCH (21:00)
[2019-01-02] MEDS: Levothyroxine 25 MCG Tab PO SCH (07:32)
[2019-01-02 08:07] LABS: ANION GAP 9.3 mmol/L (5-15); CHLORIDE,CL 101 mmol/L (98-115); SODIUM,NA 139 mmol/L (136-145)
[2019-01-02] MEDS: Potassium Chloride 10 MEQ Tab.ER PO SCH (09:21)
[2019-01-02] MEDS: Glycopyrrolate 1 MG Tab PO SCH ×2 (09:21→21:14)
[2019-01-02] MEDS: Carvedilol 12.5 MG Tab PO SCH ×2 (09:21→21:16)
[2019-01-02] MEDS: Aspirin 81 MG Tab.Chew PO SCH (09:22)
[2019-01-02] MEDS: Rivaroxaban 10 MG Tab PO SCH (09:22)
[2019-01-02] MEDS: Fludrocortisone 0.1 MG Tab PO SCH (09:22)
[2019-01-02] MEDS: Furosemide 40 MG Tab PO SCH (09:22)
[2019-01-02] MEDS: BUDESONIDE INH SCH ×2 (09:24→17:14)
[2019-01-02] MEDS: FORMOTEROL INH SCH ×2 (09:24→17:14)
[2019-01-02] MEDS: Acetaminophen 325 MG Tab PO PRN (21:13)
[2019-01-02] MEDS: Folic Acid 1 MG Tab PO SCH (21:14)
[2019-01-02] MEDS: Thiamine 100 MG Tab PO SCH (21:14)
[2019-01-03] MEDS: Levothyroxine 25 MCG Tab PO SCH (07:39)
[2019-01-03] MEDS: Albuterol/Ipratropium 3.0-0.5 MG/3 ML Neb Soln NEB PRN ×2 (07:45→15:31)
[2019-01-03] MEDS: Glycopyrrolate 1 MG Tab PO SCH ×2 (08:01→21:18)
[2019-01-03] MEDS: Fludrocortisone 0.1 MG Tab PO SCH (08:01)
[2019-01-03] MEDS: Furosemide 40 MG Tab PO SCH (08:01)
[2019-01-03] MEDS: Carvedilol 12.5 MG Tab PO SCH ×2 (08:02→21:18)
[2019-01-03] MEDS: Aspirin 81 MG Tab.Chew PO SCH (08:02)
[2019-01-03] MEDS: Rivaroxaban 10 MG Tab PO SCH (08:02)
[2019-01-03] MEDS: Potassium Chloride 10 MEQ Tab.ER PO SCH (08:03)
--- NOTE | 2019-01-03 10:51 | CR ---
[id number] RAD/RAD Chest PA And Lateral EXAM: RAD Chest PA And Lateral INDICATION: SHORTNESS OF BREATH. COMPARISON: October 09, 2018. DISCUSSION: Cardiomediastinal silhouette is normal in size and contour. No infiltrate, pneumothorax, or edema. Trace bilateral pleural effusions. Pulmonary hyperinflation. IMPRESSION: Trace bilateral pleural effusions. Otherwise, no acute cardiopulmonary findings. Rafy Harrison DO 01/03/19 1049 Thank you for allowing us to participate in the care of your patient.
[2019-01-03] MEDS: FORMOTEROL INH SCH ×2 (11:43→18:11)
[2019-01-03] MEDS: BUDESONIDE INH SCH ×2 (11:43→18:11)
[2019-01-03] MEDS ORDERED: Iopamidol 755 Mg/ML 75 ML Bottle IVPUSH ONE (12:04)
[2019-01-03] MEDS ORDERED: Sodium Chloride 0.9% 50 ML IV SCH (12:15)
[2019-01-03] MEDS ORDERED: Iopamidol 755 Mg/ML 100 ML Bottle IV ONE (13:10)
[2019-01-03] MEDS ORDERED: Sodium Chloride 0.9% 100 ML IV SCH (13:15)
--- NOTE | 2019-01-03 13:29 | CT ---
[id number] CT/CT Chest W IV EXAM: CT ANGIOGRAM CHEST INDICATION: SOB, ELEVATED D-DIMER COMPARISON: August 03, 2015 DISCUSSION: No pulmonary calyx filling defects to suggest acute pulmonary embolism. The main pulmonary artery is enlarged consistent with pulmonary hyper tension. Small bilateral pleural effusions, right greater than left. There are patchy areas of groundglass density seen throughout the lungs bilaterally with interlobular septal thickening. Mild probably paraseptal emphysema. A few areas of consolidative nodularity seen throughout the lungs. The heart is enlarged. Coronary artery disease. Atherosclerotic calcifications of the aorta and its branches. Moderate hiatal hernia. Generalized hypodensity liver consistent with hepatic steatosis. Remaining visualized upper abdominal organs are unremarkable. Osseous lesions are unremarkable. IMPRESSION: 1. No evidence of acute pulmonary embolism. 2. Small bilateral pleural effusions. 3. Patchy areas of groundglass density within the lungs bilaterally. Additionally there is interlobular septal thickening and consolidative nodularity. In the setting of cardiomegaly these findings are most consistent with pulmonary edema. Atypical infection is also in the differential. Rafy Harrison DO 01/03/19 1328 Thank you for allowing us to participate in the care of your patient.
[2019-01-03] MEDS ORDERED: Furosemide 40 MG/4 ML VIAL IVPUSH ONE (13:53)
[2019-01-03] MEDS ORDERED: methylPREDNISolone Sodium Succinate 125 MG/2 ML SDV IVPUSH ONE (13:53)
[2019-01-03] MEDS: Thiamine 100 MG Tab PO SCH (21:18)
[2019-01-03] MEDS: Folic Acid 1 MG Tab PO SCH (21:18)
[2019-01-04] MEDS: Levothyroxine 25 MCG Tab PO SCH (07:44)
[2019-01-04] MEDS: Rivaroxaban 10 MG Tab PO SCH (08:26)
[2019-01-04] MEDS: Glycopyrrolate 1 MG Tab PO SCH ×2 (08:26→20:40)
[2019-01-04] MEDS: Potassium Chloride 10 MEQ Tab.ER PO SCH (08:26)
[2019-01-04] MEDS: Aspirin 81 MG Tab.Chew PO SCH (08:27)
[2019-01-04] MEDS: Carvedilol 12.5 MG Tab PO SCH ×2 (08:27→20:42)
[2019-01-04] MEDS: Furosemide 40 MG Tab PO SCH (08:27)
[2019-01-04] MEDS: FORMOTEROL INH SCH ×2 (08:28→17:27)
[2019-01-04] MEDS: BUDESONIDE INH SCH ×2 (08:28→17:27)
[2019-01-04] MEDS: predniSONE 20 MG Tab PO SCH (11:12)
[2019-01-04] MEDS: cefTRIAXone 1 GM Vial IM SCH (16:20)
[2019-01-04] MEDS: Folic Acid 1 MG Tab PO SCH (20:40)
[2019-01-04] MEDS: Thiamine 100 MG Tab PO SCH (20:40)
[2019-01-05] MEDS: Albuterol/Ipratropium 3.0-0.5 MG/3 ML Neb Soln NEB PRN (06:02)
[2019-01-05] MEDS: Levothyroxine 25 MCG Tab PO SCH ×2 (06:03→06:30)
[2019-01-05] MEDS: predniSONE 20 MG Tab PO SCH (08:38)
[2019-01-05] MEDS: Potassium Chloride 10 MEQ Tab.ER PO SCH (08:54)
[2019-01-05] MEDS: Glycopyrrolate 1 MG Tab PO SCH ×2 (08:54→20:33)
[2019-01-05] MEDS: Furosemide 40 MG Tab PO SCH (08:54)
[2019-01-05] MEDS: Aspirin 81 MG Tab.Chew PO SCH (08:54)
[2019-01-05] MEDS: Rivaroxaban 10 MG Tab PO SCH (08:54)
[2019-01-05] MEDS: FORMOTEROL INH SCH ×2 (08:55→18:32)
[2019-01-05] MEDS: BUDESONIDE INH SCH ×2 (08:55→18:32)
[2019-01-05] MEDS: Carvedilol 12.5 MG Tab PO SCH ×2 (08:57→20:34)
[2019-01-05] MEDS: cefTRIAXone 1 GM Vial IM SCH (15:46)
[2019-01-05] MEDS: Folic Acid 1 MG Tab PO SCH (20:34)
[2019-01-05] MEDS: Thiamine 100 MG Tab PO SCH (20:34)
[2019-01-06] MEDS: Albuterol/Ipratropium 3.0-0.5 MG/3 ML Neb Soln NEB PRN (04:45)
[2019-01-06] MEDS: Levothyroxine 25 MCG Tab PO SCH (07:19)
[2019-01-06] MEDS: predniSONE 20 MG Tab PO SCH (08:05)
[2019-01-06] MEDS: Glycopyrrolate 1 MG Tab PO SCH ×2 (08:06→21:21)
[2019-01-06] MEDS: Furosemide 40 MG Tab PO SCH (08:06)
[2019-01-06] MEDS: Potassium Chloride 10 MEQ Tab.ER PO SCH (08:06)
[2019-01-06] MEDS: Rivaroxaban 10 MG Tab PO SCH (08:07)
[2019-01-06] MEDS: Carvedilol 12.5 MG Tab PO SCH ×2 (08:07→21:20)
[2019-01-06] MEDS: Aspirin 81 MG Tab.Chew PO SCH (08:07)
[2019-01-06] MEDS: BUDESONIDE INH SCH ×2 (08:53→17:55)
[2019-01-06] MEDS: FORMOTEROL INH SCH ×2 (08:53→17:55)
[2019-01-06] MEDS: Albuterol/Ipratropium 3.0-0.5 MG/3 ML Neb Soln NEB SCH ×4 (11:00→21:22)
[2019-01-06] MEDS: cefTRIAXone 1 GM Vial IM SCH (14:09)
[2019-01-06] MEDS: Acetaminophen 325 MG Tab PO PRN (14:14)
--- NOTE | 2019-01-06 14:49 | PN ---
01/06/2019 PATIENT NAME: CIERRA PRADHAN SUBJECTIVE: This is an 78-year-old female, who is being seen in swing bed rounds today. The patient has been in swing bed since 12/20/2018. Prior to that, she had 3 night visits in acute care. She was initially admitted to the hospital for increasing falls at home, deconditioning and increasing short of breath. Over the course of the summer, she had several clinic visits and hospitalizations due to the same. She had a couple of falls at home prior to admission where she was unable to get herself up. She does have a history of alcohol abuse. MRI of the brain was obtained due to her increase in falling and occasional confusion. This was negative. She does have atrial fibrillation and congestive heart failure. She had an echocardiogram performed, which showed an ejection fraction of 60% to 65% with mild valvular abnormalities. She does have an upcoming appointment with Cardiology to discuss a possible cardioversion for atrial fibrillation. This appointment is scheduled for 01/22/2019. She is being seen by Physical Therapy and progressing slowly. She has some shortness of breath and is using oxygen with activity. Without oxygen, she desaturates to 85%. She has a history of hypotension and was on Florinef. Her blood pressures have been better since in the hospital. In fact, she became hypertensive towards the end of the week last week and we did discontinue the Florinef. The patient's Coreg was also reduced to 12.5 b.i.d. from 25 b.i.d. She had 1 episode of chest pain last week. EKG and troponins were normal. On 01/03/2019, the patient became increasingly short of breath. BNP was added to her labs from 01/02/2019, due to the fact that she is a difficult stick. BNP was 899. Her D-dimer was 958. Chest x-ray was obtained and showed trace bilateral pleural effusions. Otherwise, no acute cardiopulmonary findings. Chest CT was also performed, which showed no evidence of acute pulmonary embolism. Small bilateral pleural effusions. There are patchy areas of ground-glass density within the lungs bilaterally. Pulmonary function test did reveal restrictive lung disease. Chest CT additionally showed interlobular septal thickening and consolidative nodularity. In the setting of cardiomegaly, these findings were most consistent with pulmonary edema. The patient has had some fine crackles in the right base. Over the weekend, however, they are not present today. On 01/03/2019, the patient did receive an extra dose of Lasix 40 mg IV in addition to the 40 mg orally that she has been taking. She also was given Solu-Medrol 125 mg as a 1 time dose. She had an episode of mental confusion on 01/04/2019, in the treasury manager hours. She was confused regarding her surroundings and location. She pulled out her IV at that time. She has been on oral prednisone 60 mg daily since that time. Today, the patient reports that she is having a difficult time breathing. She did receive a DuoNeb at 5:30 this morning. It is noted that her DuoNeb at this time is every 4 hours as needed. She may benefit from having the DuoNeb every 4 hours on a scheduled basis. The patient had some lower extremity cyanosis last week. Dr. Sharon Lanza evaluated her at that time. Peripheral arterial studies were performed of both lower extremities, which showed [id number] left infrapopliteal disease; mild to moderate bilateral femoral artery disease. OBJECTIVE: VITAL SIGNS: Temp is 97.2, pulse 84, respirations 24, blood pressure 143/77, her oxygen saturation is 96% on 2 L of oxygen. SKIN: Warm and dry to touch. She does have poor skin turgor. She does have multiple abrasions and skin tears of her skin from a previous fall. CARDIAC: Reveals an irregularly irregular rhythm with a rate of 80 beats per minute. LUNGS: Sounds are distant. I do not auscultate any rales, wheezes, or rhonchi at this time. ABDOMEN: Soft, nontender. Bowel sounds present in all 4 quadrants. There is no pedal edema. IMPRESSION: 1. Deconditioning, increased falls, and shortness of breath. Physical Therapy will continue to work with her. We are hopefully gaining some ground as far as gaining some strength. The patient does plan to return home to an independent living situation. 2. Hypotension. This has improved considerably. Florinef has been discontinued. Blood pressure may be better due to better hydration status as well as better nutritional status. 3. Atrial fibrillation with a controlled ventricular rate. She does have a Cardiology consultation scheduled for 01/22/2019, to discuss cardioversion. 4. Persistent shortness of breath, possibly from restrictive lung disease, interstitial pulmonary fibrosis, and trace pleural effusions. We will increase her DuoNeb to every 4 hours on a scheduled basis as opposed to p.r.n. She continues on oral steroids. We will continue to follow. /[id number]/MODL MTDD
[2019-01-06] MEDS: Thiamine 100 MG Tab PO SCH (21:20)
[2019-01-06] MEDS: Folic Acid 1 MG Tab PO SCH (21:21)
[2019-01-07] MEDS: Albuterol/Ipratropium 3.0-0.5 MG/3 ML Neb Soln NEB SCH ×6 (01:59→22:08)
[2019-01-07] MEDS: Levothyroxine 25 MCG Tab PO SCH (07:33)
[2019-01-07] MEDS: predniSONE 20 MG Tab PO SCH (07:34)
[2019-01-07 07:46] LABS: ANION GAP 10.9 mmol/L (5-15); CHLORIDE,CL 101 mmol/L (98-115); SODIUM,NA 142 mmol/L (136-145)
[2019-01-07] MEDS: Aspirin 81 MG Tab.Chew PO SCH (08:19)
[2019-01-07] MEDS: Carvedilol 12.5 MG Tab PO SCH ×2 (08:19→20:20)
[2019-01-07] MEDS: Potassium Chloride 10 MEQ Tab.ER PO SCH (08:23)
[2019-01-07] MEDS: Furosemide 40 MG Tab PO SCH (08:23)
[2019-01-07] MEDS: Glycopyrrolate 1 MG Tab PO SCH ×2 (08:24→20:20)
[2019-01-07] MEDS: Rivaroxaban 10 MG Tab PO SCH (08:24)
[2019-01-07] MEDS: FORMOTEROL INH SCH ×2 (09:54→20:20)
[2019-01-07] MEDS: BUDESONIDE INH SCH ×2 (09:54→20:20)
[2019-01-07] MEDS: Albuterol 8 GM Inhaler INH PRN (14:22)
[2019-01-07] MEDS: Acetaminophen 325 MG Tab PO PRN (19:00)
[2019-01-07] MEDS: traMADol 50 MG Tab PO PRN (19:00)
[2019-01-07] MEDS: Folic Acid 1 MG Tab PO SCH (20:21)
[2019-01-07] MEDS: Thiamine 100 MG Tab PO SCH (20:21)
[2019-01-08] MEDS: Albuterol/Ipratropium 3.0-0.5 MG/3 ML Neb Soln NEB SCH ×4 (05:54→23:27)
[2019-01-08] MEDS: predniSONE 20 MG Tab PO SCH (07:50)
[2019-01-08] MEDS: Levothyroxine 25 MCG Tab PO SCH (07:50)
[2019-01-08] MEDS: BUDESONIDE INH SCH ×3 (08:45→20:44)
[2019-01-08] MEDS: FORMOTEROL INH SCH ×3 (08:45→20:44)
[2019-01-08] MEDS: Rivaroxaban 10 MG Tab PO SCH (09:02)
[2019-01-08] MEDS: Furosemide 40 MG Tab PO SCH (09:03)
[2019-01-08] MEDS: Glycopyrrolate 1 MG Tab PO SCH ×2 (09:03→20:45)
[2019-01-08] MEDS: Potassium Chloride 10 MEQ Tab.ER PO SCH (09:03)
[2019-01-08] MEDS: Aspirin 81 MG Tab.Chew PO SCH (09:04)
[2019-01-08] MEDS: Carvedilol 12.5 MG Tab PO SCH ×2 (09:04→20:45)
[2019-01-08] MEDS: Acetaminophen 325 MG Tab PO PRN ×2 (12:54→20:54)
[2019-01-08] MEDS: traMADol 50 MG Tab PO PRN ×2 (12:56→20:54)
[2019-01-08] MEDS: Thiamine 100 MG Tab PO SCH (20:45)
[2019-01-08] MEDS: Folic Acid 1 MG Tab PO SCH (20:45)
[2019-01-09] MEDS: Albuterol/Ipratropium 3.0-0.5 MG/3 ML Neb Soln NEB SCH ×4 (05:37→21:01)
[2019-01-09] MEDS: Levothyroxine 25 MCG Tab PO SCH (06:36)
[2019-01-09] MEDS: predniSONE 20 MG Tab PO SCH (07:44)
[2019-01-09] MEDS: Glycopyrrolate 1 MG Tab PO SCH ×2 (08:36→21:00)
[2019-01-09] MEDS: Rivaroxaban 10 MG Tab PO SCH (08:37)
[2019-01-09] MEDS: Furosemide 40 MG Tab PO SCH (08:37)
[2019-01-09] MEDS: Aspirin 81 MG Tab.Chew PO SCH (08:37)
[2019-01-09] MEDS: Potassium Chloride 10 MEQ Tab.ER PO SCH (08:38)
[2019-01-09] MEDS: Carvedilol 12.5 MG Tab PO SCH ×2 (08:38→21:00)
[2019-01-09] MEDS: FORMOTEROL INH SCH ×2 (08:43→19:52)
[2019-01-09] MEDS: BUDESONIDE INH SCH ×2 (08:43→19:52)
[2019-01-09] MEDS: Folic Acid 1 MG Tab PO SCH (21:00)
[2019-01-09] MEDS: Thiamine 100 MG Tab PO SCH (21:00)
[2019-01-10] MEDS: Albuterol/Ipratropium 3.0-0.5 MG/3 ML Neb Soln NEB SCH ×4 (00:02→17:20)
[2019-01-10] MEDS: Levothyroxine 25 MCG Tab PO SCH (06:29)
[2019-01-10] MEDS: predniSONE 20 MG Tab PO SCH (08:26)
[2019-01-10] MEDS: Aspirin 81 MG Tab.Chew PO SCH (08:27)
[2019-01-10] MEDS: Potassium Chloride 10 MEQ Tab.ER PO SCH (08:27)
[2019-01-10] MEDS: Carvedilol 12.5 MG Tab PO SCH ×2 (08:27→20:07)
[2019-01-10] MEDS: Furosemide 40 MG Tab PO SCH (08:27)
[2019-01-10] MEDS: Rivaroxaban 10 MG Tab PO SCH (08:27)
[2019-01-10] MEDS: Glycopyrrolate 1 MG Tab PO SCH ×2 (08:27→20:07)
[2019-01-10] MEDS: FORMOTEROL INH SCH ×2 (08:28→18:35)
[2019-01-10] MEDS: BUDESONIDE INH SCH ×2 (08:28→18:35)
[2019-01-10] MEDS: Acetaminophen 325 MG Tab PO PRN (20:06)
[2019-01-10] MEDS: Folic Acid 1 MG Tab PO SCH (20:07)
[2019-01-10] MEDS: traMADol 50 MG Tab PO PRN (20:07)
[2019-01-10] MEDS: Thiamine 100 MG Tab PO SCH (20:07)
[2019-01-11] MEDS: Albuterol/Ipratropium 3.0-0.5 MG/3 ML Neb Soln NEB SCH ×5 (01:15→23:57)
[2019-01-11] MEDS: Levothyroxine 25 MCG Tab PO SCH (06:41)
[2019-01-11] MEDS: Potassium Chloride 10 MEQ Tab.ER PO SCH (08:18)
[2019-01-11] MEDS: Furosemide 40 MG Tab PO SCH (08:19)
[2019-01-11] MEDS: Glycopyrrolate 1 MG Tab PO SCH ×2 (08:19→20:15)
[2019-01-11] MEDS: Rivaroxaban 10 MG Tab PO SCH (08:19)
[2019-01-11] MEDS: predniSONE 20 MG Tab PO SCH (08:19)
[2019-01-11] MEDS: Aspirin 81 MG Tab.Chew PO SCH (08:20)
[2019-01-11] MEDS: Carvedilol 12.5 MG Tab PO SCH ×2 (08:20→20:15)
[2019-01-11] MEDS: FORMOTEROL INH SCH ×2 (08:56→20:13)
[2019-01-11] MEDS: BUDESONIDE INH SCH ×2 (08:56→20:13)
[2019-01-11] MEDS: Thiamine 100 MG Tab PO SCH (20:15)
[2019-01-11] MEDS: Folic Acid 1 MG Tab PO SCH (20:15)
[2019-01-12] MEDS: Albuterol/Ipratropium 3.0-0.5 MG/3 ML Neb Soln NEB SCH ×4 (06:21→22:03)
[2019-01-12] MEDS: Levothyroxine 25 MCG Tab PO SCH (06:35)
[2019-01-12] MEDS: Rivaroxaban 10 MG Tab PO SCH (08:46)
[2019-01-12] MEDS: Furosemide 40 MG Tab PO SCH (08:46)
[2019-01-12] MEDS: Glycopyrrolate 1 MG Tab PO SCH ×2 (08:46→20:30)
[2019-01-12] MEDS: Potassium Chloride 10 MEQ Tab.ER PO SCH (08:46)
[2019-01-12] MEDS: Aspirin 81 MG Tab.Chew PO SCH (08:46)
[2019-01-12] MEDS: predniSONE 20 MG Tab PO SCH (08:46)
[2019-01-12] MEDS: Carvedilol 12.5 MG Tab PO SCH ×2 (08:47→20:30)
[2019-01-12] MEDS: FORMOTEROL INH SCH ×2 (08:48→19:44)
[2019-01-12] MEDS: BUDESONIDE INH SCH ×2 (08:48→19:44)
[2019-01-12] MEDS: Thiamine 100 MG Tab PO SCH (20:30)
[2019-01-12] MEDS: Folic Acid 1 MG Tab PO SCH (20:31)
[2019-01-13] MEDS: Albuterol/Ipratropium 3.0-0.5 MG/3 ML Neb Soln NEB SCH ×4 (05:53→23:15)
[2019-01-13] MEDS: Levothyroxine 25 MCG Tab PO SCH (07:37)
[2019-01-13] MEDS: Aspirin 81 MG Tab.Chew PO SCH (08:45)
[2019-01-13] MEDS: predniSONE 20 MG Tab PO SCH (08:45)
[2019-01-13] MEDS: Potassium Chloride 10 MEQ Tab.ER PO SCH (08:45)
[2019-01-13] MEDS: Furosemide 40 MG Tab PO SCH (08:46)
[2019-01-13] MEDS: Rivaroxaban 10 MG Tab PO SCH (08:46)
[2019-01-13] MEDS: Carvedilol 12.5 MG Tab PO SCH ×2 (08:46→21:15)
[2019-01-13] MEDS: Glycopyrrolate 1 MG Tab PO SCH ×2 (08:47→21:14)
[2019-01-13] MEDS: BUDESONIDE INH SCH ×2 (09:02→21:14)
[2019-01-13] MEDS: FORMOTEROL INH SCH ×2 (09:02→21:14)
--- NOTE | 2019-01-13 09:56 | PN ---
01/12/2019 PATIENT NAME: CIERRA PRADHAN SUBJECTIVE: This is an 78-year-old female, who is being seen today on swing bed rounds. The patient is receiving physical therapy and does seem to be making some slow improvement. Dr. Sharon Gaming has had a pointed conversation with the patient last week regarding the motivation for physical therapy. The patient has decided that she is going to put more effort into her physical therapy sessions. The patient has atrial fibrillation and congestive heart failure. She had an echocardiogram performed, which showed an ejection fraction of 60%-65% with mild valvular abnormalities. She does have a Cardiology appointment in the near future on 01/22/2019 to discuss possible cardioversion for atrial fibrillation. She has a history of hypotension and was on Florinef. Her blood pressures have improved since being in the hospital. She became hypertensive at one point and the Florinef was discontinued. Coreg was also reduced from 25 mg b.i.d. to 12.5 mg b.i.d. She has had one episode of chest pain with normal EKG and troponins. On 01/03/2019, the patient became increasingly short of breath. BNP was elevated at 899. D-dimer was 958. Chest x-ray showed bilateral pleural effusions. Chest CT was performed, which showed no acute pulmonary embolism with small bilateral pleural effusions. There are patchy areas of ground-glass density within the lungs bilaterally. Pulmonary function testing has confirmed restrictive lung disease. Chest CT additionally showed interlobular septal thickening and consolidative nodularity. The patient has some pulmonary fibrosis as well as some mild pulmonary edema according to the chest CT. The patient has been given an extra dose of Lasix on occasion with improvement. She was treated with IV Solu-Medrol as well as oral steroids as well. She continues to report that she is having difficulty breathing. She is receiving DuoNeb treatments every 4 hours. She had lower extremity cyanosis last week and had lower extremity peripheral arterial studies, which showed mild to moderate left infrapopliteal disease with mild to moderate bilateral femoral artery disease. OBJECTIVE: VITAL SIGNS: Temp is 97, pulse 104, respirations 22, blood pressure 92/48, O2 saturation is 94% on room air. SKIN: Warm and dry to touch. CARDIAC: Reveals an irregularly irregular rhythm with no murmur, click, or gallop. LUNGS: Clear without rales, wheezes, or rhonchi. ABDOMEN: Soft, nontender. EXTREMITIES: There is no pedal edema. IMPRESSION: 1. Deconditioning. She is progressing slowly, although she is improving with physical therapy. She has had an increase in motivation to work harder with physical therapy in preparation for discharge, which her goal is 01/15/2019. 2. Atrial fibrillation with congestive heart failure. She does have a Cardiology appointment to discuss cardioversion for atrial fibrillation. She will continue on Xarelto as well as Coreg. 3. Hypotension. This is actually improved and noticed today her blood pressure is a little lower. We will continue to monitor this. She was on Florinef at home for hypotension, which has been discontinued now that her blood pressures have improved. 4. Discharge planning. She does plan to go home to an independent living situation. There are some concern by family members regarding alcohol abuse. Hopefully, she does not return to abusing alcohol when she returns home. She has a Life Alert on order. She also has home oxygen set up by respiratory therapy for when she returns home. /[id number]/MODL
[2019-01-13 10:23] LABS: BASE EXCESS ARTERIAL 6 mmol/L (-2-3); BICARBONATE,ARTERIAL 29.7 mmol/L (22-26); O2 DELIVERY DEVICE NASAL CANNULA; O2 FLOW RATE 2 L/min; O2 SATURATION ARTERIAL 96 % (95-98); PCO2 ARTERIAL 43 mmHG (35-45); PO2 ARTERIAL 78 mmHG (80-105)
[2019-01-13] MEDS ORDERED: Mirtazapine 15 MG Tab PO SCH (21:00)
[2019-01-13] MEDS: Thiamine 100 MG Tab PO SCH (21:15)
[2019-01-13] MEDS: Folic Acid 1 MG Tab PO SCH (21:15)
[2019-01-14] MEDS: Albuterol/Ipratropium 3.0-0.5 MG/3 ML Neb Soln NEB SCH ×4 (06:00→22:17)
[2019-01-14] MEDS: Levothyroxine 25 MCG Tab PO SCH (06:32)
[2019-01-14] MEDS: Potassium Chloride 10 MEQ Tab.ER PO SCH (08:49)
[2019-01-14] MEDS: Glycopyrrolate 1 MG Tab PO SCH ×2 (08:49→20:10)
[2019-01-14] MEDS: Furosemide 40 MG Tab PO SCH (08:49)
[2019-01-14] MEDS: predniSONE 20 MG Tab PO SCH (08:49)
[2019-01-14] MEDS: Carvedilol 12.5 MG Tab PO SCH ×2 (08:49→20:09)
[2019-01-14] MEDS: Rivaroxaban 10 MG Tab PO SCH (08:50)
[2019-01-14] MEDS: Aspirin 81 MG Tab.Chew PO SCH (08:50)
--- NOTE | 2019-01-14 09:04 | PN ---
01/13/2019 PATIENT NAME: CIERRA MALHOTRA SUBJECTIVE: This is an 78-year-old, who is on swing bed for deconditioning and falling at home. She is progressing slowly with physical therapy. Plan is for discharge possibly next week. guitar repair technician, Cierra Mares, asked me to see the patient today due to the fact that she was so short of breath. The patient's exam was normal. I visited with the patient for a brief period of time and she made a comment, "I just want to ." She also stated, "I feel like I am a hopeless case." We did discuss arterial blood gases and repeating a BNP. The patient was reluctant at first, but did agree to having the test performed. Arterial blood gases showed the following: PH 7.45, which is normal; pCO2 of 43, which is normal; pO2 of 78, which is low. ABG; HCO3 of 29.7, which is high and the total CO2 was 31 with a high end of normal being 27. BNP improved from 1180 on 01/07/2019 to 779 on 01/13/2019. When I went in the patient's room to discuss the lab results with her, she was in a better frame of mind. She did make the comment, "I don't want to , I want to drink." There is great concern with her family members in regard to her alcohol intake at home. This undoubtedly led to her deconditioning and increased falls at home. The fear is that she will resume drinking when she returns home. I have been in contact with the patient's jidovlnn-xt-him, Katya Malhotra, in regard to the patient's condition. An antidepressant was suggested, namely Remeron. The patient declined. I also had a long discussion with the patient's son, Philip. A care conference is being planned for next week prior to the patient's discharge. The presence of alcohol in the home will be addressed as well as the fact that she will not be able to drive. The family's plan is to remove all the alcohol from her home and remove her vehicle. I spoke with Ronny Mares in regard to mental health services. We do have tele- psych available with us. There was also discussion regarding hospice, which I am not sure is appropriate at this time. The patient is adamant that she will not go to the correction. A care conference will be next week and discharge planning will continue. /[id number]/MODL
[2019-01-14] MEDS: FORMOTEROL INH SCH ×2 (09:25→19:57)
[2019-01-14] MEDS: BUDESONIDE INH SCH ×2 (09:25→19:57)
[2019-01-14] MEDS: Folic Acid 1 MG Tab PO SCH (20:10)
[2019-01-14] MEDS: Thiamine 100 MG Tab PO SCH (20:10)
[2019-01-15] MEDS: Albuterol/Ipratropium 3.0-0.5 MG/3 ML Neb Soln NEB SCH ×3 (05:55→16:51)
[2019-01-15] MEDS: predniSONE 20 MG Tab PO SCH (07:25)
[2019-01-15] MEDS: Levothyroxine 25 MCG Tab PO SCH (07:25)
[2019-01-15] MEDS: Glycopyrrolate 1 MG Tab PO SCH ×2 (09:25→20:51)
[2019-01-15] MEDS: Potassium Chloride 10 MEQ Tab.ER PO SCH (09:26)
[2019-01-15] MEDS: Rivaroxaban 10 MG Tab PO SCH (09:26)
[2019-01-15] MEDS: Aspirin 81 MG Tab.Chew PO SCH (09:26)
[2019-01-15] MEDS: Furosemide 40 MG Tab PO SCH (09:27)
[2019-01-15] MEDS: Carvedilol 12.5 MG Tab PO SCH ×2 (09:32→20:52)
[2019-01-15] MEDS: FORMOTEROL INH SCH ×2 (09:53→20:51)
[2019-01-15] MEDS: BUDESONIDE INH SCH ×2 (09:53→20:51)
[2019-01-15] MEDS: Thiamine 100 MG Tab PO SCH (20:51)
[2019-01-15] MEDS: Folic Acid 1 MG Tab PO SCH (20:51)
[2019-01-16] MEDS: Albuterol/Ipratropium 3.0-0.5 MG/3 ML Neb Soln NEB SCH ×5 (00:40→23:45)
[2019-01-16] MEDS: Levothyroxine 25 MCG Tab PO SCH (07:33)
[2019-01-16] MEDS: predniSONE 20 MG Tab PO SCH (07:33)
[2019-01-16] MEDS: Aspirin 81 MG Tab.Chew PO SCH (08:37)
[2019-01-16] MEDS: Potassium Chloride 10 MEQ Tab.ER PO SCH (08:37)
[2019-01-16] MEDS: Glycopyrrolate 1 MG Tab PO SCH ×2 (08:38→20:10)
[2019-01-16] MEDS: Carvedilol 12.5 MG Tab PO SCH ×2 (08:38→20:09)
[2019-01-16] MEDS: Rivaroxaban 10 MG Tab PO SCH (08:38)
[2019-01-16] MEDS: Furosemide 40 MG Tab PO SCH (08:38)
[2019-01-16] MEDS: BUDESONIDE INH SCH ×2 (09:08→20:09)
[2019-01-16] MEDS: FORMOTEROL INH SCH ×2 (09:08→20:09)
[2019-01-16] MEDS: Folic Acid 1 MG Tab PO SCH (20:09)
[2019-01-16] MEDS: Thiamine 100 MG Tab PO SCH (20:10)
[2019-01-17] MEDS: Albuterol/Ipratropium 3.0-0.5 MG/3 ML Neb Soln NEB SCH ×4 (05:43→23:11)
[2019-01-17] MEDS: Levothyroxine 25 MCG Tab PO SCH (07:56)
[2019-01-17] MEDS: predniSONE 20 MG Tab PO SCH (07:57)
[2019-01-17] MEDS: Rivaroxaban 10 MG Tab PO SCH (09:40)
[2019-01-17] MEDS: Furosemide 40 MG Tab PO SCH (09:40)
[2019-01-17] MEDS: Aspirin 81 MG Tab.Chew PO SCH (09:40)
[2019-01-17] MEDS: Potassium Chloride 10 MEQ Tab.ER PO SCH (09:40)
[2019-01-17] MEDS: Glycopyrrolate 1 MG Tab PO SCH ×2 (09:40→20:09)
[2019-01-17] MEDS: Carvedilol 12.5 MG Tab PO SCH ×2 (09:41→20:08)
[2019-01-17] MEDS: FORMOTEROL INH SCH ×2 (10:07→19:48)
[2019-01-17] MEDS: BUDESONIDE INH SCH ×2 (10:07→19:48)
[2019-01-17] MEDS: Folic Acid 1 MG Tab PO SCH (20:09)
[2019-01-17] MEDS: Thiamine 100 MG Tab PO SCH (20:09)
[2019-01-18] MEDS: Albuterol/Ipratropium 3.0-0.5 MG/3 ML Neb Soln NEB SCH ×4 (05:00→23:58)
[2019-01-18] MEDS: predniSONE 20 MG Tab PO SCH (07:32)
[2019-01-18] MEDS: Levothyroxine 25 MCG Tab PO SCH (07:32)
[2019-01-18] MEDS: BUDESONIDE INH SCH ×2 (09:04→19:35)
[2019-01-18] MEDS: FORMOTEROL INH SCH ×2 (09:04→19:35)
[2019-01-18] MEDS: Furosemide 40 MG Tab PO SCH (09:05)
[2019-01-18] MEDS: Glycopyrrolate 1 MG Tab PO SCH ×2 (09:05→20:31)
[2019-01-18] MEDS: Aspirin 81 MG Tab.Chew PO SCH (09:05)
[2019-01-18] MEDS: Rivaroxaban 10 MG Tab PO SCH (09:05)
[2019-01-18] MEDS: Potassium Chloride 10 MEQ Tab.ER PO SCH (09:06)
[2019-01-18] MEDS: Carvedilol 12.5 MG Tab PO SCH ×2 (09:13→20:30)
[2019-01-18] MEDS: Folic Acid 1 MG Tab PO SCH (20:30)
[2019-01-18] MEDS: Thiamine 100 MG Tab PO SCH (20:31)
[2019-01-19] MEDS: Albuterol/Ipratropium 3.0-0.5 MG/3 ML Neb Soln NEB SCH ×4 (05:57→22:14)
[2019-01-19] MEDS: Levothyroxine 25 MCG Tab PO SCH (07:36)
[2019-01-19] MEDS: predniSONE 20 MG Tab PO SCH (07:36)
[2019-01-19] MEDS: Glycopyrrolate 1 MG Tab PO SCH ×2 (08:49→21:23)
[2019-01-19] MEDS: Aspirin 81 MG Tab.Chew PO SCH (08:49)
[2019-01-19] MEDS: Potassium Chloride 10 MEQ Tab.ER PO SCH (08:49)
[2019-01-19] MEDS: Rivaroxaban 10 MG Tab PO SCH (08:49)
[2019-01-19] MEDS: Furosemide 40 MG Tab PO SCH (08:50)
[2019-01-19] MEDS: Carvedilol 12.5 MG Tab PO SCH ×2 (08:50→21:29)
[2019-01-19] MEDS: BUDESONIDE INH SCH ×2 (08:57→19:32)
[2019-01-19] MEDS: FORMOTEROL INH SCH ×2 (08:57→19:32)
[2019-01-19] MEDS: Folic Acid 1 MG Tab PO SCH (21:23)
[2019-01-19] MEDS: Thiamine 100 MG Tab PO SCH (21:23)
[2019-01-20] MEDS: Albuterol/Ipratropium 3.0-0.5 MG/3 ML Neb Soln NEB SCH ×4 (05:48→22:20)
[2019-01-20] MEDS: Levothyroxine 25 MCG Tab PO SCH (07:30)
[2019-01-20] MEDS: predniSONE 20 MG Tab PO SCH (07:51)
[2019-01-20] MEDS: Potassium Chloride 10 MEQ Tab.ER PO SCH (08:39)
[2019-01-20] MEDS: Rivaroxaban 10 MG Tab PO SCH (08:39)
[2019-01-20] MEDS: Aspirin 81 MG Tab.Chew PO SCH (08:42)
[2019-01-20] MEDS: Furosemide 40 MG Tab PO SCH (08:42)
[2019-01-20] MEDS: Glycopyrrolate 1 MG Tab PO SCH ×2 (08:42→20:43)
[2019-01-20] MEDS: Carvedilol 12.5 MG Tab PO SCH ×2 (08:43→20:42)
[2019-01-20] MEDS: BUDESONIDE INH SCH ×3 (09:20→19:52)
[2019-01-20] MEDS: FORMOTEROL INH SCH ×3 (09:20→19:52)
[2019-01-20] MEDS: traMADol 50 MG Tab PO PRN (09:58)
[2019-01-20] MEDS: Folic Acid 1 MG Tab PO SCH (20:43)
[2019-01-20] MEDS: Thiamine 100 MG Tab PO SCH (20:43)
[2019-01-21] MEDS: Albuterol/Ipratropium 3.0-0.5 MG/3 ML Neb Soln NEB SCH ×4 (06:46→23:28)
[2019-01-21] MEDS: Levothyroxine 25 MCG Tab PO SCH (07:41)
[2019-01-21] MEDS: FORMOTEROL INH SCH ×2 (08:30→19:45)
[2019-01-21] MEDS: BUDESONIDE INH SCH ×2 (08:30→19:45)
[2019-01-21] MEDS: Potassium Chloride 10 MEQ Tab.ER PO SCH (08:33)
[2019-01-21] MEDS: Glycopyrrolate 1 MG Tab PO SCH ×2 (08:34→20:35)
[2019-01-21] MEDS: Aspirin 81 MG Tab.Chew PO SCH (08:35)
[2019-01-21] MEDS: Furosemide 40 MG Tab PO SCH (08:35)
[2019-01-21] MEDS: Rivaroxaban 10 MG Tab PO SCH (08:35)
[2019-01-21] MEDS: predniSONE 20 MG Tab PO SCH (08:37)
[2019-01-21] MEDS: Carvedilol 12.5 MG Tab PO SCH ×2 (08:37→20:34)
[2019-01-21] MEDS: Thiamine 100 MG Tab PO SCH (20:35)
[2019-01-21] MEDS: Folic Acid 1 MG Tab PO SCH (20:35)
[2019-01-22] MEDS: Albuterol/Ipratropium 3.0-0.5 MG/3 ML Neb Soln NEB SCH ×5 (05:10→23:55)
[2019-01-22] MEDS: Levothyroxine 25 MCG Tab PO SCH (07:24)
[2019-01-22] MEDS: Furosemide 40 MG Tab PO SCH (08:11)
[2019-01-22] MEDS: Carvedilol 12.5 MG Tab PO SCH ×2 (08:11→20:19)
[2019-01-22] MEDS: Glycopyrrolate 1 MG Tab PO SCH ×2 (08:11→20:21)
[2019-01-22] MEDS: Potassium Chloride 10 MEQ Tab.ER PO SCH (08:11)
[2019-01-22] MEDS: Aspirin 81 MG Tab.Chew PO SCH (08:11)
[2019-01-22] MEDS: predniSONE 20 MG Tab PO SCH (08:11)
[2019-01-22] MEDS: Rivaroxaban 10 MG Tab PO SCH (08:12)
[2019-01-22] MEDS: FORMOTEROL INH SCH ×2 (08:51→20:20)
[2019-01-22] MEDS: BUDESONIDE INH SCH ×2 (08:51→20:20)
--- NOTE | 2019-01-22 12:50 | PN ---
01/21/2019 PATIENT NAME: CIERRA PRADHAN SUBJECTIVE: This is an 78-year-old, who is being seen on swing bed rounds today. The patient was admitted for deconditioning and falling at home. She is progressing slowly with physical therapy. We did have a care conference last week and the patient decided and had made the decision that she would go into the [facility]. This will be a possible permanent move for her. She is in the process of picking out furniture for her new room and seems excited. She has a Cardiology appointment today at [facility]. This is to discuss possible cardiac ablation for atrial fibrillation. She did have an echocardiogram, which was fairly good. Cardiac ejection fraction was 60%-65% with mild valvular abnormalities. She does have a history of atrial fibrillation and congestive heart failure. She does have a history of hypotension and was previously on Florinef. Her blood pressure has improved since being in the hospital and the Florinef was discontinued. We have adjusted her Coreg dose based on her blood pressures. She had one episode of chest pain while in the hospital with normal EKG and troponins. Her chief complaint is that of difficulty breathing and increased shortness of breath. Her BNP has been checked numerous times since being in the hospital and has been found to be as high as 1180 and now 779 on 01/13/2019. Labs have not been drawn since that time and have not been indicated. We did do arterial blood gases at one point in time, which did not show any hypercapnia. She had pulmonary function testing, which showed some restrictive lung disease. There was some concern regarding alcohol use at home. This has been expressed by the family and some of the patient's friends. The patient has had a chest CT performed to rule out DVT during one acute episode of shortness of breath. This was on 01/03/2019. D-dimer was 950 at that time. There was bilateral pleural effusions identified. The chest CT was performed on the same day, which showed no acute pulmonary embolism and confirmed the small bilateral pleural effusions. There were also patchy areas of ground-glass density within the lungs bilaterally. CT additionally showed interlobular septal thickening and consolidative nodularity. The patient does have some pulmonary fibrosis as well as some mild pulmonary edema according to the chest CT. The patient has responded well to the Lasix. She is receiving DuoNeb treatments every 4 hours. She did have one episode of lower extremity cyanosis, which prompted lower extremity peripheral arterial studies, which showed mild to moderate left infrapopliteal disease with mild to moderate bilateral femoral artery disease. OBJECTIVE: VITAL SIGNS: Temp is 97, pulse 88, respirations 22, blood pressure 129/75, O2 saturation is 90% on 2.5 L of oxygen. SKIN: Warm and dry to touch. CARDIAC: Shows an irregularly irregular rhythm. No murmur, click, or gallop is auscultated. LUNGS: Clear without rales, wheezes, or rhonchi. ABDOMEN: Soft, nontender. Bowel sounds present in all 4 quadrants. EXTREMITIES: She does have some mild pedal edema with the left lower extremity being more edematous than the right. IMPRESSION: 1. Deconditioning, requiring swing bed care for physical therapy. She is improving slowly with physical therapy. She has possibly plateaued at the point that she will improve. There is a plan to discharge her to the intermediate next week, possibly on 01/26/2019. 2. Atrial fibrillation with congestive heart failure. She does have a Cardiology appointment scheduled for 01/22/2019, at [facility]. This is to evaluate for the possibility of her being a candidate for cardiac ablation for atrial fibrillation. She will continue on Xarelto as well as Coreg. 3. Hypotension. This is actually improved and Florinef has been discontinued. We will continue to monitor. /[id number]/MODL
[2019-01-22] MEDS: Folic Acid 1 MG Tab PO SCH (20:19)
[2019-01-22] MEDS: Thiamine 100 MG Tab PO SCH (20:22)
[2019-01-23] MEDS: Albuterol/Ipratropium 3.0-0.5 MG/3 ML Neb Soln NEB SCH ×4 (04:56→22:39)
[2019-01-23] MEDS: Levothyroxine 25 MCG Tab PO SCH (06:45)
[2019-01-23] MEDS: predniSONE 20 MG Tab PO SCH (09:05)
[2019-01-23] MEDS: Rivaroxaban 10 MG Tab PO SCH (09:06)
[2019-01-23] MEDS: Furosemide 40 MG Tab PO SCH (09:06)
[2019-01-23] MEDS: Carvedilol 12.5 MG Tab PO SCH ×2 (09:06→20:43)
[2019-01-23] MEDS: Glycopyrrolate 1 MG Tab PO SCH ×2 (09:06→20:41)
[2019-01-23] MEDS: Potassium Chloride 10 MEQ Tab.ER PO SCH (09:06)
[2019-01-23] MEDS: Aspirin 81 MG Tab.Chew PO SCH (09:06)
[2019-01-23] MEDS: BUDESONIDE INH SCH ×2 (09:09→20:39)
[2019-01-23] MEDS: FORMOTEROL INH SCH ×2 (09:09→20:39)
[2019-01-23] MEDS: Thiamine 100 MG Tab PO SCH (20:39)
[2019-01-23] MEDS: Folic Acid 1 MG Tab PO SCH (20:41)
[2019-01-24] MEDS: Albuterol/Ipratropium 3.0-0.5 MG/3 ML Neb Soln NEB SCH ×4 (06:02→23:32)
[2019-01-24] MEDS: Levothyroxine 25 MCG Tab PO SCH ×2 (06:04→06:34)
[2019-01-24] MEDS: Albuterol 8 GM Inhaler INH PRN (08:34)
[2019-01-24] MEDS: Potassium Chloride 10 MEQ Tab.ER PO SCH (09:38)
[2019-01-24] MEDS: predniSONE 20 MG Tab PO SCH (09:38)
[2019-01-24] MEDS: Aspirin 81 MG Tab.Chew PO SCH (09:39)
[2019-01-24] MEDS: Rivaroxaban 10 MG Tab PO SCH (09:39)
[2019-01-24] MEDS: Furosemide 40 MG Tab PO SCH (09:39)
[2019-01-24] MEDS: Glycopyrrolate 1 MG Tab PO SCH ×2 (09:39→21:17)
[2019-01-24] MEDS: FORMOTEROL INH SCH ×2 (09:42→19:44)
[2019-01-24] MEDS: BUDESONIDE INH SCH ×2 (09:42→19:44)
[2019-01-24] MEDS: Carvedilol 12.5 MG Tab PO SCH ×2 (09:43→21:16)
[2019-01-24] MEDS: Acetaminophen 325 MG Tab PO PRN (10:42)
[2019-01-24] MEDS: traMADol 50 MG Tab PO PRN (10:44)
[2019-01-24] MEDS: Folic Acid 1 MG Tab PO SCH (21:16)
[2019-01-24] MEDS: Thiamine 100 MG Tab PO SCH (21:17)
[2019-01-25] MEDS: Albuterol/Ipratropium 3.0-0.5 MG/3 ML Neb Soln NEB SCH ×3 (05:18→18:03)
[2019-01-25] MEDS: Potassium Chloride 10 MEQ Tab.ER PO SCH (08:22)
[2019-01-25] MEDS: predniSONE 20 MG Tab PO SCH (08:22)
[2019-01-25] MEDS: Furosemide 40 MG Tab PO SCH (08:22)
[2019-01-25] MEDS: Levothyroxine 25 MCG Tab PO SCH (08:22)
[2019-01-25] MEDS: Aspirin 81 MG Tab.Chew PO SCH (08:22)
[2019-01-25] MEDS: Carvedilol 12.5 MG Tab PO SCH ×2 (08:22→20:23)
[2019-01-25] MEDS: Rivaroxaban 10 MG Tab PO SCH (08:23)
[2019-01-25] MEDS: FORMOTEROL INH SCH ×2 (08:23→20:22)
[2019-01-25] MEDS: BUDESONIDE INH SCH ×2 (08:23→20:22)
[2019-01-25] MEDS: Glycopyrrolate 1 MG Tab PO SCH ×2 (08:23→20:22)
[2019-01-25] MEDS: Thiamine 100 MG Tab PO SCH (20:23)
[2019-01-25] MEDS: Folic Acid 1 MG Tab PO SCH (20:23)
[2019-01-26] MEDS: Albuterol/Ipratropium 3.0-0.5 MG/3 ML Neb Soln NEB SCH ×5 (03:05→23:14)
[2019-01-26] MEDS: Ondansetron 4 MG Tab.DIS PO PRN (07:24)
[2019-01-26] MEDS: FORMOTEROL INH SCH (09:32)
[2019-01-26] MEDS: BUDESONIDE INH SCH (09:32)
[2019-01-26] MEDS: Levothyroxine 25 MCG Tab PO SCH (10:19)
[2019-01-26] MEDS: predniSONE 20 MG Tab PO SCH (10:20)
[2019-01-26] MEDS: Aspirin 81 MG Tab.Chew PO SCH (10:20)
[2019-01-26] MEDS: Glycopyrrolate 1 MG Tab PO SCH ×2 (10:20→20:54)
[2019-01-26] MEDS: Carvedilol 12.5 MG Tab PO SCH ×2 (10:20→20:56)
[2019-01-26] MEDS: Potassium Chloride 10 MEQ Tab.ER PO SCH (10:20)
[2019-01-26] MEDS: Rivaroxaban 10 MG Tab PO SCH (10:20)
[2019-01-26] MEDS: Furosemide 40 MG Tab PO SCH (10:20)
[2019-01-26] MEDS ORDERED: Budesonide/Formoterol 16-4.5 MCG/Puff 10.2 GM Inhaler INH SCH (11:16)
[2019-01-26] MEDS: Acetaminophen 325 MG Tab PO PRN (12:48)
[2019-01-26] MEDS: Folic Acid 1 MG Tab PO SCH (20:55)
[2019-01-26] MEDS: Thiamine 100 MG Tab PO SCH (20:56)
[2019-01-26] MEDS ORDERED: SYMBICORT INH SCH (21:00)
[2019-01-27] MEDS: Albuterol/Ipratropium 3.0-0.5 MG/3 ML Neb Soln NEB SCH (05:25)
[2019-01-27] MEDS: predniSONE 20 MG Tab PO SCH (07:43)
[2019-01-27] MEDS: Levothyroxine 25 MCG Tab PO SCH (07:43)
--- NOTE | 2019-01-27 08:19 | PN ---
01/26/2019 PATIENT NAME: CIERRA PRADHAN SUBJECTIVE: This is an 78-year-old female who is being seen today on swing bed rounds. The patient is progressing slowly with physical therapy and does plan to be admitted to the senior living tomorrow. Today when I saw her, she reports she just wants to sleep. She feels like she has not had a good day in two weeks. She does have problems with persistent shortness of breath and is using oxygen on a continuous basis. There has been no complaints over the weekend. She has left periodically in the past to see [employer] and football games. The patient had a bout of nausea this morning and did receive Zofran for the same. OBJECTIVE: VITAL SIGNS: Temperature is 96.5, pulse is 97, respirations 22, and blood pressure 97/60. SKIN: Warm and dry to touch. CARDIAC: Reveals an irregularly irregular rhythm. No murmur, click, or gallop is auscultated. LUNGS: Do have bibasilar rales. ABDOMEN: Soft, nontender. Bowel sounds present in all 4 quadrants. There is mild pedal edema with the left being greater than the right. IMPRESSION AND PLAN: 1. Deconditioning and frequent falls at home. The patient has made some slow progress with physical therapy here. She is planning to be admitted to the senior living tomorrow. 2. Atrial fibrillation with congestive heart failure. She does have rales bilaterally and is refusing to have additional Lasix today. She did have a cardiology appointment last week with physiatrist, Dr. Charles, at [facility]. Apparently, she is not a candidate for cardiac ablation for atrial fibrillation. She will continue on Xarelto as well as Coreg. 3. Hypotension. This is improved. She was on Florinef in the past and this has been discontinue. We are planning for discharge/transfer to the senior living tomorrow. She did receive physical therapy today. She just complained of feeling so tired today. We will continue to monitor. /[id number]/MODL
[2019-01-27] MEDS: Aspirin 81 MG Tab.Chew PO SCH (08:28)
[2019-01-27] MEDS: Potassium Chloride 10 MEQ Tab.ER PO SCH (08:29)
[2019-01-27] MEDS: Glycopyrrolate 1 MG Tab PO SCH ×2 (08:29→20:56)
[2019-01-27] MEDS: Furosemide 40 MG Tab PO SCH (08:29)
[2019-01-27] MEDS: Rivaroxaban 10 MG Tab PO SCH (08:29)
[2019-01-27] MEDS: Carvedilol 12.5 MG Tab PO SCH ×2 (08:30→20:55)
[2019-01-27] MEDS ORDERED: SYMBICORT INH SCH (09:00)
[2019-01-27] MEDS ORDERED: Albuterol/Ipratropium 3.0-0.5 MG/3 ML Neb Soln NEB PRN (11:00)
[2019-01-27] MEDS: Arformoterol 15 MCG/2 ML Neb Soln INH SCH ×2 (11:02→20:57)
[2019-01-27] MEDS ORDERED: Arformoterol 15 MCG/2 ML Neb Soln INH SCH (20:00)
[2019-01-27] MEDS: Folic Acid 1 MG Tab PO SCH (20:57)
[2019-01-27] MEDS: Thiamine 100 MG Tab PO SCH (20:57)
[2019-01-27] MEDS: Budesonide 0.5 MG/2 ML Neb Susp NEB SCH (21:53)
[2019-01-28] MEDS: Ondansetron 4 MG Tab.DIS PO PRN (05:02)
[2019-01-28 06:33] VITALS: BP 122/52
[2019-01-28] MEDS: Arformoterol 15 MCG/2 ML Neb Soln INH SCH ×2 (07:28→10:11)
[2019-01-28] MEDS: Budesonide 0.5 MG/2 ML Neb Susp NEB SCH (08:56)
[2019-01-28] MEDS: Levothyroxine 25 MCG Tab PO SCH (10:06)
--- NOTE | 2019-01-28 10:11 | DISCH ---
HOSPITAL COURSE: This is an 78-year-old female who was admitted to swing bed care on 12/20/2018. She had been in acute care prior to that for three nights. She was initially admitted to the hospital for increasing falls at home, deconditioning, increasing shortness of breath. She had also failed outpatient treatment. Over the course of the summer, she had several clinic visits and hospitalizations due to the same. She had a couple of falls at home prior to admission, where she was unable to get herself up. She does have a history of alcohol abuse as well. An MRI of the brain was obtained upon admission due to the increase in falling and occasional confusion. This was negative for any intracranial pathology. She does have atrial fibrillation, congestive heart failure. She had an echocardiogram performed well in the hospital, which showed an ejection fraction of 60-65% with mild valvular abnormalities. She did see Cardiology, namely Dr. Charles at [facility] in [place]. She was deemed to not be a candidate for cardioversion for atrial fibrillation. The patient continues on Xarelto as well as Coreg. She has been seen by Physical Therapy and has progressed slowly and has possibly plateaued. She has had shortness of breath and is using oxygen continuously. The patient's oxygen saturations are in the 80s without the oxygen. She has a history of hypotension and was on Florinef. Her blood pressures have improved while being in the hospital. She, in fact, became hypertensive. Florinef was discontinued. Coreg was reduced from 25 mg b.i.d. to 12.5 mg. She did have one episode of chest pain during her swing bed stay. EKG and troponins were negative. On 01/03/2019, the patient became increasingly short of breath. BNP was 899 at that time, and her D-dimer was 958. Chest x-ray was obtained and showed trace bilateral pleural effusions. Chest x-ray was performed which confirmed the same. The chest CT was negative for pulmonary embolism. There was patchy areas of ground-glass density within the lungs bilaterally. Pulmonary function testing did reveal restrictive lung disease. CT scan also showed septal thickening and consolidative nodularity. These findings were consistent with pulmonary edema. She did receive IV steroids followed with oral steroids, which are now being tapered. She also was given an extra dose of Lasix. The patient was on 20 mg of Lasix when she was admitted, which was changed to 40 mg daily due to the fact that the patient was skipping the evening dose. The patient's nxtnxntk-vt-caz is a pharmacist and has been consulted numerous times regarding medications for the patient. Most recently, today, we did discontinue her Symbicort and change this to Brovana per nebulizer as well as budesonide. Hopefully, this will be beneficial for her. The patient did initially have some problems with mental confusion, however, this is improved. During the patient's hospitalization, she did have some lower extremity cyanosis, which improved. She did have a peripheral arterial study of both lower extremities, which showed mild to moderate left infrapopliteal disease, mild to moderate bilateral femoral artery disease. The patient was extremely exhausted yesterday and did not tolerate physical therapy very well. She has done better today. Two care conferences have been held since the patient has been in swing bed. The patient has acquiesced that [facility] care is the most realistic option for her going forward. PHYSICAL EXAMINATION: VITAL SIGNS: On examination temp is 97.1, pulse 59, respirations 22, blood pressure 120/60, oxygen saturation is 95% on 2 L of oxygen. SKIN: Warm and dry to touch. CARDIAC: Exam reveals irregularly irregular rhythm with a controlled rate. No murmur, click, or gallop is auscultated. LUNGS: Have bilateral bibasilar crackles, which have been consistent. The patient does refuse additional Lasix at this time. ABDOMEN: Soft, nontender. Bowel sounds present in all four quadrants. There is mild pedal edema with the left being greater than the right. IMPRESSION: 1. Deconditioning with frequent falls at home. The patient has progressed slowly and has possibly plateaued now with her physical therapy. She is planning to be transferred to the [facility] tomorrow. She will continue physical therapy as well as occupational therapy. 2. Hypotension. This is improved considerably. She was on Florinef in the past, which was discontinued. Blood pressure may be improved due to better hydration status as well as a better nutritional status. The patient will continue on Coreg 12.5 mg daily. 3. Atrial fibrillation with controlled ventricular rate. Consultation with Cardiology deemed her to not to be a noncandidate for ablation for atrial fibrillation. She will continue on Coreg as well as Xarelto. 4. Persistent shortness of breath from restrictive lung disease. We did adjust her medications to stop the Symbicort. She was now on nebulized Brovana as well as budesonide. Hopefully, this will be helpful. She will continue on DuoNeb as before. She continues on oral steroids, however, these are going to be tapered off. Dr. Sharon Lanza and myself will follow up with the patient in the [facility]. /[id number]/MODL
[2019-01-28] MEDS: Aspirin 81 MG Tab.Chew PO SCH (10:27)
[2019-01-28] MEDS: Potassium Chloride 10 MEQ Tab.ER PO SCH (10:27)
[2019-01-28] MEDS: Carvedilol 12.5 MG Tab PO SCH (10:27)
[2019-01-28] MEDS: Glycopyrrolate 1 MG Tab PO SCH (10:28)
[2019-01-28] MEDS: Rivaroxaban 10 MG Tab PO SCH (10:28)
[2019-01-28] MEDS: Furosemide 40 MG Tab PO SCH (10:28)
[2019-01-28] MEDS: predniSONE 20 MG Tab PO SCH (11:24)
[2019-01-28 11:54] VITALS: PULSE 128
== END 2019-01-28 11:53 | DRG 948 ==
LOC: KA.MS 20:00
PROVIDERS: ADMIT Internal Medicine; ATTEND Internal Medicine
DX: R53.1 Weakness (principal); J90 Pleural effusion, not elsewhere classified; J81.1 Chronic pulmonary edema; F10.10 Alcohol abuse, uncomplicated; J98.4 Other disorders of lung; R29.6 Repeated falls; I48.91 Unspecified atrial fibrillation; J84.10 Pulmonary fibrosis, unspecified; I50.9 Heart failure, unspecified; R23.0 Cyanosis; I77.89 Other specified disorders of arteries and arterioles; I95.9 Hypotension, unspecified; Y90.0 Blood alcohol level of less than 20 mg/100 ml; J44.9 Chronic obstructive pulmonary disease, unspecified; E03.9 Hypothyroidism, unspecified; D64.9 Anemia, unspecified; R53.81 Other malaise; S80.11XA Contusion of right lower leg, initial encounter; W19.XXXA Unspecified fall, initial encounter; E87.6 Hypokalemia; R51 Headache; S51.812A Laceration without foreign body of left forearm, initial encounter; S51.811A Laceration without foreign body of right forearm, initial encounter; S81.811A Laceration without foreign body, right lower leg, initial encounter; Z99.81 Dependence on supplemental oxygen; Z91.81 History of falling
CPT/HCPCS: 36415; 36600; 71046; 71260; 80053; 81001; 82803; 83880; 84484; 85025; 85379; 87086; 93005; 93925; 94060; 94640; 97110-GP; 97162-GP; 97537-GP; A9270-GY; G0480; J0696; J1940; J2930; J7050; J7620-GY; Q9967

== ENCOUNTER 2019-02-13 10:14 | Inpatient (IN) | payer MEDICARE, OTHER ==
--- NOTE | 2019-02-13 10:52 | CR ---
[id number] RAD/RAD Chest PA And Lateral EXAM: FRONTAL AND LATERAL CHEST INDICATION: CRACKLES. COMPARISON: January 03, 2019. DISCUSSION: Stable cardiomegaly with new or increased moderate interstitial and mild airspace edema. Minimal bilateral pleural effusions. Degenerative changes throughout the spine. IMPRESSION: 1. Moderate congestive heart failure which is new or significantly increased relative to the prior study. Theodore Huston MD 02/13/19 1051 Thank you for allowing us to participate in the care of your patient.
[2019-02-13 11:23] LABS: O2 DELIVERY DEVICE SIMPLE MASK; O2 FLOW RATE 5 L/min
[2019-02-13 11:27] LABS: BICARBONATE,ARTERIAL 31.2 mmol/L (22-26); O2 SATURATION ARTERIAL 95 % (95-98); PCO2 ARTERIAL 43 mmHG (35-45); PO2 ARTERIAL 73 mmHG (80-105)
[2019-02-13 11:28] LABS: BASE EXCESS ARTERIAL 7 mmol/L (-2-3)
[2019-02-13] MEDS ORDERED: Furosemide 40 MG/4 ML VIAL IVPUSH ONE (12:05)
[2019-02-13 12:40] LABS: CHLORIDE,CL 101 mmol/L (98-115); SODIUM,NA 139 mmol/L (136-145)
[2019-02-13] MEDS ORDERED: Acetaminophen 325 MG Tab PO PRN (13:06)
[2019-02-13] MEDS ORDERED: traMADol 50 MG Tab PO PRN (13:06)
[2019-02-13] MEDS ORDERED: Ondansetron 4 MG Tab.DIS PO PRN (13:06)
[2019-02-13] MEDS ORDERED: Trolamine Salicylate/Aloe Vera 10% Crm 85 GM Tube TOP PRN (13:06)
[2019-02-13] MEDS ORDERED: Albuterol 8 GM Inhaler INH PRN (13:06)
[2019-02-13] MEDS: Nystatin Susp 100,000 Unit/ML 5 ML UD Cup PO SCH ×3 (15:44→20:45)
[2019-02-13] MEDS: Budesonide 0.5 MG/2 ML Neb Susp NEB SCH (20:23)
[2019-02-13] MEDS: Thiamine 100 MG Tab PO SCH (20:29)
[2019-02-13] MEDS: Folic Acid 1 MG Tab PO SCH (20:29)
[2019-02-13] MEDS: Glycopyrrolate 1 MG Tab PO SCH (20:29)
[2019-02-13] MEDS: Albuterol/Ipratropium 3.0-0.5 MG/3 ML Neb Soln NEB PRN (20:41)
[2019-02-13] MEDS ORDERED: Carvedilol 12.5 MG Tab PO SCH (21:00)
[2019-02-14] MEDS: Albuterol/Ipratropium 3.0-0.5 MG/3 ML Neb Soln NEB PRN ×2 (05:06→15:57)
[2019-02-14] MEDS: Levothyroxine 25 MCG Tab PO SCH (07:45)
[2019-02-14] MEDS: predniSONE 20 MG Tab PO SCH (09:08)
[2019-02-14] MEDS: Glycopyrrolate 1 MG Tab PO SCH ×2 (09:08→20:34)
[2019-02-14] MEDS: Potassium Chloride 10 MEQ Tab.ER PO SCH (09:08)
[2019-02-14] MEDS: Budesonide 0.5 MG/2 ML Neb Susp NEB SCH ×2 (09:08→20:25)
[2019-02-14] MEDS: Rivaroxaban 10 MG Tab PO SCH (09:09)
[2019-02-14] MEDS: Furosemide 40 MG Tab PO SCH (09:09)
[2019-02-14] MEDS: Aspirin 81 MG Tab.Chew PO SCH (09:09)
[2019-02-14] MEDS: Nystatin Susp 100,000 Unit/ML 5 ML UD Cup PO SCH ×4 (09:09→20:36)
[2019-02-14] MEDS ORDERED: Furosemide 40 MG/4 ML VIAL IVPUSH ONE (10:06)
[2019-02-14] MEDS ORDERED: methylPREDNISolone Sodium Succinate 125 MG/2 ML SDV IVPUSH ONE (10:07)
--- NOTE | 2019-02-14 10:13 | PCM.PN ---
- General Info Date of Service: 02/14/19 Admission Dx/Problem (Free Text): CHF exacerbation - Review of Systems Systems Review Comment:: Vickie is seen today on inpatient rounds. She was admitted on 02/13/19 from the long-term with CHF exacerbation. I had actually seen her on rounds at the [facility] the morning of 02/13 and her O2 sats were low, despite being on O2 via face mask and she was very tired. On physical exam she had bilateral crackles and so I had her come to the hospital as an outpatient and a CXR showed moderate CHF. Labs were largely unremarkable. She was admitted for IV lasix. Of note, she is also in the middle of a steroid taper for her COPD and there has been discussion about continuing her on a low maintenance dose as she tends to have flares frequently when she is off the medication. She has been able to get off O2 via facemask but is currently in 3-4L via NC and still feels SOB. She did have urinary output with the lasix dose yesterday. Today she is tearful. She states "I don't feel worth a darn". She is "worn out but I don't want to yet". She expresses wanting to get well adn feel good again. She denies any pain. Of note, the [place] lost her lower dentures so she is on a mechanical soft diet currently and has been tolerating that well. She also has a-fib with and her beta aisha is being held due to CHF exacerbation as well as hypotension and her pulse has been in the 80's. - Patient Data Vitals - Most Recent: Last Vital Signs Temp 97.5 F 02/14/19 05:33 Pulse 82 02/14/19 05:33 Resp 18 02/14/19 05:33 BP 97/61 02/14/19 05:33 Pulse Ox 97 02/14/19 05:33 Weight - Most Recent: 129 lb 11.2 oz I&O - Last 24 Hours: Intake & Output 02/13/19 02/14/19 02/14/19 22:59 06:59 14:59 Intake Total 150 100 Output Total 500 200 Balance -350 -100 Lab Results Last 24 Hours: Laboratory Results - last 24 hr 02/13/19 02/13/19 02/13/19 Range/Units 10:45 10:45 10:45 WBC 5.92 (5.00-10.00) 10^3/uL RBC 3.81 (3.80-5.50) 10^6/uL Hgb 10.2 L (12.0-16.0) g/dL Hct 32.9 L (37.0-47.0) % MCV 86.4 (82.0-92.0) fL MCH 26.8 L (27.0-31.0) pg MCHC 31.0 L (32.0-36.0) g/dL RDW 15.1 H (11.5-14.5) % Plt Count 235 (150-400) 10^3/uL MPV 11.5 H (7.4-10.4) fL Immature Gran % (Auto) 0.5 (0.0-5.0) % Neut % (Auto) 67.1 (50.0-70.0) % Lymph % (Auto) 24.8 (20.0-40.0) % Dickson % (Auto) 6.9 (2.0-8.0) % Eos % (Auto) 0.2 L (1.0-3.0) % Baso % (Auto) 0.5 (0.0-1.0) % Immature Gran # (Auto) 0.03 (0.00-0.50) 10^3/uL Neut # (Auto) 3.97 (2.50-7.00) 10^3/uL Lymph # (Auto) 1.47 (1.00-4.00) 10^3/uL Dickson # (Auto) 0.41 (0.10-0.80) 10^3/uL Eos # (Auto) 0.01 L (0.10-0.30) 10^3/uL Baso # (Auto) 0.03 (0.00-0.10) 10^3/uL ABG pH (7.35-7.45) ABG pCO2 (35-45) mmHG ABG pO2 (80-105) mmHG ABG HCO3 (22-26) mmol/L ABG Total CO2 (23-27) mmol/L ABG O2 Saturation (95-98) % ABG Base Excess (-2-3) mmol/L O2 Delivery Device Oxygen Flow Rate L/min Sodium 139 (136-145) mmol/L Potassium 3.6 D (3.3-5.3) mmol/L Chloride 101 (98-115) mmol/L Carbon Dioxide 33.6 H (21.0-32.0) mmol/L Anion Gap 8.0 (5-15) mmol/L BUN 15 (6-25) mg/dL Creatinine 0.79 (0.51-1.17) mg/dL Est Cr Clr Drug Dosing 51.11 mL/min Estimated GFR (MDRD) > 60 mL/min Glucose 104 H (75 - 99) mg/dL Calcium 8.2 L (8.7-10.3) mg/dL Phosphorus 3.0 (2.6-4.7) mg/dL Magnesium 2.1 (1.8-2.4) mg/dL B-Natriuretic Peptide 763 H (0-100) pg/mL Free T4 (0.59-1.17) ng/dL TSH, Ultra Sensitive (0.340-4.820) uIU/mL 02/13/19 02/13/19 Range/Units 10:45 10:53 WBC (5.00-10.00) 10^3/uL RBC (3.80-5.50) 10^6/uL Hgb (12.0-16.0) g/dL Hct (37.0-47.0) % MCV (82.0-92.0) fL MCH (27.0-31.0) pg MCHC (32.0-36.0) g/dL RDW (11.5-14.5) % Plt Count (150-400) 10^3/uL MPV (7.4-10.4) fL Immature Gran % (Auto) (0.0-5.0) % Neut % (Auto) (50.0-70.0) % Lymph % (Auto) (20.0-40.0) % Dickson % (Auto) (2.0-8.0) % Eos % (Auto) (1.0-3.0) % Baso % (Auto) (0.0-1.0) % Immature Gran # (Auto) (0.00-0.50) 10^3/uL Neut # (Auto) (2.50-7.00) 10^3/uL Lymph # (Auto) (1.00-4.00) 10^3/uL Dickson # (Auto) (0.10-0.80) 10^3/uL Eos # (Auto) (0.10-0.30) 10^3/uL Baso # (Auto) (0.00-0.10) 10^3/uL ABG pH 7.47 H (7.35-7.45) ABG pCO2 43 (35-45) mmHG ABG pO2 73 L (80-105) mmHG ABG HCO3 31.2 H (22-26) mmol/L ABG Total CO2 32 H (23-27) mmol/L ABG O2 Saturation 95 (95-98) % ABG Base Excess 7 H (-2-3) mmol/L O2 Delivery Device Simple mask Oxygen Flow Rate 5 L/min Sodium (136-145) mmol/L Potassium (3.3-5.3) mmol/L Chloride (98-115) mmol/L Carbon Dioxide (21.0-32.0) mmol/L Anion Gap (5-15) mmol/L BUN (6-25) mg/dL Creatinine (0.51-1.17) mg/dL Est Cr Clr Drug Dosing mL/min Estimated GFR (MDRD) mL/min Glucose (75 - 99) mg/dL Calcium (8.7-10.3) mg/dL Phosphorus (2.6-4.7) mg/dL Magnesium (1.8-2.4) mg/dL B-Natriuretic Peptide (0-100) pg/mL Free T4 1.07 (0.59-1.17) ng/dL TSH, Ultra Sensitive 3.060 (0.340-4.820) uIU/mL Med Orders - Current: Current Medications Acetaminophen (Tylenol) 650 mg PO Q6H PRN PRN Reason: Pain Last Admin: 02/13/19 15:43 Dose: 650 mg Albuterol (Ventolin Hfa) 0 gm INH BID PRN PRN Reason: Shortness of Breath Albuterol/Ipratropium (Duoneb 3.0-0.5 Mg/3 Ml) 3 ml NEB Q4HRRT PRN PRN Reason: shortness of breath Last Admin: 02/14/19 05:06 Dose: 3 ml Aspirin (Aspirin) 81 mg PO DAILY [facility] Last Admin: 02/14/19 09:09 Dose: 81 mg Budesonide (Pulmicort) 0.5 mg NEB BID@0830,2030 [facility] Last Admin: 02/14/19 09:08 Dose: 0.5 mg Carvedilol (Coreg) 12.5 mg PO BID [facility] Escitalopram Oxalate (Lexapro) 10 mg PO DAILY [facility] Folic Acid (Folic Acid) 1 mg PO BEDTIME [facility] Last Admin: 02/13/19 20:29 Dose: 1 mg Furosemide (Lasix) 40 mg PO DAILY [facility] Last Admin: 02/14/19 09:09 Dose: 40 mg Furosemide (Lasix) 40 mg IVPUSH NOW ONE Stop: 02/14/19 10:07 Glycopyrrolate (Robinul) 0.5 mg PO BID [facility] Last Admin: 02/14/19 09:08 Dose: 0.5 mg Levothyroxine Sodium (Levothyroxine) 25 mcg PO ACBREAKFAST [facility] Last Admin: 02/14/19 07:45 Dose: 25 mcg Methylprednisolone Sodium Succinate (Solu-Medrol) 125 mg IVPUSH ONETIME ONE Stop: 02/14/19 10:08 Nystatin (Mycostatin) 10 ml PO QID [facility] Last Admin: 02/14/19 09:09 Dose: 10 ml Ondansetron HCl (Zofran Odt) 4 mg PO Q6H PRN PRN Reason: Nausea/Vomiting Potassium Chloride (Klor-Con 10) 20 meq PO DAILY [facility] Last Admin: 02/14/19 09:08 Dose: 20 meq Prednisone (Prednisone) 10 mg PO WITHBREAKFAST [facility] Last Admin: 02/14/19 09:08 Dose: 10 mg Rivaroxaban (Xarelto) 20 mg PO DAILY [facility] Last Admin: 02/14/19 09:09 Dose: 20 mg Senna/Docusate Sodium (Senna Plus) 2 tab PO BID PRN PRN Reason: Constipation Thiamine HCl (Vitamin B-1) 100 mg PO BEDTIME [facility] Last Admin: 02/13/19 20:29 Dose: 100 mg Tramadol HCl (Ultram) 50 mg PO Q6H PRN PRN Reason: Pain Trolamine Salicylate (Aspercreme 10%) 1 gm TOP Q1H PRN PRN Reason: Pain Discontinued Medications Furosemide (Lasix) 40 mg IVPUSH NOW ONE Stop: 02/13/19 12:06 Last Admin: 02/13/19 13:11 Dose: 40 mg - Exam Quality Assessment: Supplemental Oxygen General: Alert, Oriented, Cooperative, Other (Tearful) Lungs: Crackles (Improved crackles on the right, still present, and crackles present still on the left, largely unchanged from yesterday.) Cardiovascular: No Murmurs, Irregular Rhythm GI/Abdominal Exam: Normal Bowel Sounds Extremities: Normal Inspection, No Pedal Edema - Problem List & Annotations (1) Acute exacerbation of CHF (congestive heart failure) SNOMED Code(s): 469046333, 29313471548327 Code(s): I50.9 - HEART FAILURE, UNSPECIFIED Status: Acute Current Visit: Yes (2) Atrial fibrillation SNOMED Code(s): 21738769 Code(s): I48.91 - UNSPECIFIED ATRIAL FIBRILLATION Status: Acute Current Visit: No (3) COPD (chronic obstructive pulmonary disease) SNOMED Code(s): 89633719 Code(s): J44.9 - CHRONIC OBSTRUCTIVE PULMONARY DISEASE, UNSPECIFIED Status : Chronic Current Visit: No (4) Weakness SNOMED Code(s): 30813093 Code(s): R53.1 - WEAKNESS Status: Chronic Current Visit: No - Problem List Review Problem List Initiated/Reviewed/Updated: Yes - My Orders Last 24 Hours: My Active Orders 02/13/19 12:03 Patient Status [ADT] Routine Oxygen Therapy [RC] PRN Up With Assistance [RC] ASDIRECTED VTE/DVT Education [RC] PER UNIT ROUTINE Vital Signs [RC] 0300,0700,1100,1500,1900,2300 Resuscitation Status Routine 02/13/19 13:06 Acetaminophen [Tylenol] 650 mg PO Q6H PRN Albuterol [Ventolin HFA] 0 gm INH BID PRN Albuterol/Ipratropium [DuoNeb 3.0-0.5 MG/3 ML] 3 ml NEB Q4HRRT PRN Docusate Sodium/Sennosides [Senna Plus] 2 tab PO BID PRN Ondansetron [Zofran ODT] 4 mg PO Q6H PRN Trolamine Salicylate/Aloe Vera [Aspercreme 10%] 1 gm TOP Q1H PRN traMADol [Ultram] 50 mg PO Q6H PRN 02/13/19 14:30 Nystatin [Mycostatin] 10 ml PO QID 02/13/19 14:31 Communication Order [RC] 0900,2100 02/13/19 14:43 Daily Weight [Height and Weight] [RC] 0702/13/19 20:30 Budesonide [Pulmicort] 0.5 mg NEB BID@0830,202902/13/19 21:00 Carvedilol [Coreg] 12.5 mg PO BID Folic Acid 1 mg PO BEDTIME Glycopyrrolate [Robinul] 0.5 mg PO BID Thiamine [Vitamin B-1] 100 mg PO BEDTIME 02/13/19 Dinner Mechanical Soft Diet [DIET] 02/14/19 07:30 Levothyroxine 25 mcg PO ACBREAKFAST 02/14/19 08:00 predniSONE 10 mg PO WITHBREAKFAST 02/14/19 09:00 Aspirin 81 mg PO DAILY Furosemide [Lasix] 40 mg PO DAILY Potassium Chloride [Klor-Con 10] 20 meq PO DAILY Rivaroxaban [Xarelto] 20 mg PO DAILY 02/14/19 10:06 Furosemide [Lasix] 40 mg IVPUSH NOW ONE 02/14/19 10:07 methylPREDNISolone Sod Succ [Solu-MEDROL] 125 mg IVPUSH ONETIME ONE 02/14/19 10:15 Escitalopram [Lexapro] 10 mg PO DAILY 02/15/19 05:11 BMP [BASIC METABOLIC PANEL,BMP] [CHEM] AM - Assessment Assessment:: CHF exacerbation COPD A-fib Hypotension Hypothyroidism Depressed mood - Plan Plan:: CHF exacerbation. Lasix 40 mg IV x 1 today as well as usual outpatient lasix oral dose. COPD. Solumedrol 125 mg IV x 1 today and continue oral steroids per outpatient taper. A-fib, rate controlled currently. Holding beta-aisha due to hypotension. Hypotension. Improved from yesterday, anticipate this will improve further once extra volume is removed and heart will have better contractility. Hypothyroidism. Adequately replaced, continue outpatient levothyroxine dose. Depressed mood. Will start escitalopram 10 mg PO daily, she was willing to start this.
[2019-02-14] MEDS: Escitalopram 10 MG Tab PO SCH (10:43)
[2019-02-14] MEDS: Folic Acid 1 MG Tab PO SCH (20:34)
[2019-02-14] MEDS: Thiamine 100 MG Tab PO SCH (20:34)
[2019-02-15] MEDS: Albuterol/Ipratropium 3.0-0.5 MG/3 ML Neb Soln NEB PRN (06:12)
[2019-02-15] MEDS: Levothyroxine 25 MCG Tab PO SCH (06:30)
[2019-02-15 08:11] LABS: ANION GAP 9.7 mmol/L (5-15); CHLORIDE,CL 96 mmol/L (98-115); SODIUM,NA 134 mmol/L (136-145)
[2019-02-15] MEDS: Nystatin Susp 100,000 Unit/ML 5 ML UD Cup PO SCH ×4 (09:01→20:45)
[2019-02-15] MEDS: Rivaroxaban 10 MG Tab PO SCH (09:01)
[2019-02-15] MEDS: Furosemide 40 MG Tab PO SCH (09:01)
[2019-02-15] MEDS: Aspirin 81 MG Tab.Chew PO SCH (09:01)
[2019-02-15] MEDS: Escitalopram 10 MG Tab PO SCH (09:01)
[2019-02-15] MEDS: Glycopyrrolate 1 MG Tab PO SCH ×2 (09:02→20:29)
[2019-02-15] MEDS: predniSONE 20 MG Tab PO SCH (09:02)
[2019-02-15] MEDS: Potassium Chloride 10 MEQ Tab.ER PO SCH (09:02)
[2019-02-15] MEDS: Budesonide 0.5 MG/2 ML Neb Susp NEB SCH ×2 (09:04→20:29)
[2019-02-15] MEDS: methylPREDNISolone Sodium Succinate 125 MG/2 ML SDV IVPUSH SCH ×2 (11:46→17:52)
--- NOTE | 2019-02-15 20:09 | PN ---
02/15/2019 PATIENT NAME: CIERRA PRADHAN SUBJECTIVE: Cierra is being seen today on inpatient rounds. She was admitted on 02/13/2019 through the half-way with CHF exacerbation. Her chest x-ray prior to admission showed moderate congestive heart failure. Her lab work was fairly unremarkable. She did receive intravenous Lasix and does seem to have improved. She was in the middle of a steroid taper for COPD. The patient's daughter-in- law is a pharmacist and she has discussed with Dr. Sharon Gaming the possibility of possibly maintaining her on a low dose steroids when she returns to the half-way. She does tend to have flares frequently if she is off steroids. She did receive Solu-Medrol 125 mg yesterday in addition to her 20 mg orally. The patient states she has been up ambulating today. She does require oxygen per nasal cannula at 3 to 4 L per nasal cannula. She has been feeling a little less short of breath. She reports "I am having a better day than I did yesterday." She was started on escitalopram yesterday for depression. The patient has felt quite defeated by the progression of her illness. She has not felt good for many months. She lost her lower dentures at the half-way. She is on a mechanical soft diet and has been tolerating this well. The patient has a history of atrial fibrillation and her beta aisha is being held due to her CHF exacerbation as well as hypotension. A BMP was drawn today with a slightly low sodium of 134. Potassium is normal at 4.8. Chloride is slightly low at 96. Carbon dioxide is elevated at 33.1. Anion gap is 9.7 which is normal. BUN and creatinine are normal at 14 and 0.62 respectively. Calcium was normal at 8.7. OBJECTIVE: VITAL SIGNS: Temp is 97.3, pulse 100, respirations 20, blood pressure 94/61 which is much improved, O2 saturation is 91% on 3 L of oxygen per nasal cannula. Her weight is 129 today, down 1.5 pounds from admission which was 131 pounds and 9.6 ounces. SKIN: Warm and dry to touch. CARDIAC: Reveals an irregularly irregular rhythm at a rate of 84 beats per minute. No murmur, click, or gallop is auscultated. LUNGS: Crackles bilaterally. No wheezes or rhonchi. ABDOMEN: Soft and nontender with bowel sounds present in all 4 quadrants. There is no pedal edema. IMPRESSION: 1. Congestive heart failure exacerbation. She was given Lasix 40 mg IV x1 yesterday in addition to 40 mg p.o. The patient does not want to have an additional 40 of Lasix today and I believe that this is appropriate at this time. She is improving from the IV steroids that she received yesterday. 2. Chronic obstructive pulmonary disease. She will continue on Solu-Medrol 80 mg IV every 8 hours. Her oral steroids were actually discontinued for the time being. She will be discontinued on oral steroids when she is ready for discharge. 3. Atrial fibrillation, her rate is controlled well. We are holding her beta aisha due to hypotension and congestive heart failure exacerbation. 4. Hypotension, improved. 5. Hypothyroidism, adequately replaced. Continue levothyroxine. 6. She has started escitalopram for depressed mood. The patient does seem to be doing better from a psychological standpoint today. We visited for a fairly long period of time. She is not careful today like she was yesterday. We will continue to follow. /[id number]/MODL
[2019-02-15] MEDS: Thiamine 100 MG Tab PO SCH (20:28)
[2019-02-15] MEDS: Folic Acid 1 MG Tab PO SCH (20:29)
[2019-02-16] MEDS: methylPREDNISolone Sodium Succinate 125 MG/2 ML SDV IVPUSH SCH ×2 (03:23→16:18)
[2019-02-16] MEDS: Sodium Chloride 0.9% 10 ML Syringe FLUSH PRN (03:27)
[2019-02-16] MEDS: Levothyroxine 25 MCG Tab PO SCH (06:29)
[2019-02-16] MEDS: Budesonide 0.5 MG/2 ML Neb Susp NEB SCH ×2 (07:59→20:59)
[2019-02-16] MEDS: Escitalopram 10 MG Tab PO SCH (08:36)
[2019-02-16] MEDS: Glycopyrrolate 1 MG Tab PO SCH ×2 (08:36→20:59)
[2019-02-16] MEDS: Rivaroxaban 10 MG Tab PO SCH (08:36)
[2019-02-16] MEDS: Furosemide 40 MG Tab PO SCH (08:36)
[2019-02-16] MEDS: Aspirin 81 MG Tab.Chew PO SCH (08:36)
[2019-02-16] MEDS: Nystatin Susp 100,000 Unit/ML 5 ML UD Cup PO SCH ×4 (08:37→20:59)
[2019-02-16] MEDS: Potassium Chloride 10 MEQ Tab.ER PO SCH (08:37)
[2019-02-16] MEDS ORDERED: methylPREDNISolone Sodium Succinate 125 MG/2 ML SDV IVPUSH SCH (09:00)
--- NOTE | 2019-02-16 09:34 | PCM.PN ---
- General Info Date of Service: 02/16/19 Admission Dx/Problem (Free Text): CHF exacerbation - Review of Systems Systems Review Comment:: Vickie is seen today on inpatient rounds. She was admitted on 02/13/19 with CHF exacerbation. She has had improvement in her crackles but refused any additional lasix yesterday as she was feeling tired and did not want the extra trips to the bathroom. She was also given Solumedrol 80 mg IV TID yesterday, today will decrease to BID. She states this morning she is confused. She reports "people tell me this is the [facility] but it doesn't seem like it". She knows who I am and who she is and the month. She denies any pain. O2 sats have been 89-91% on 3L via NC. - Patient Data Vitals - Most Recent: Last Vital Signs Temp 97.4 F 02/16/19 06:27 Pulse 100 02/16/19 06:27 Resp 20 02/16/19 06:27 BP 123/79 02/16/19 06:27 Pulse Ox 94 L 02/16/19 06:27 Weight - Most Recent: 129 lb 12.8 oz I&O - Last 24 Hours: Intake & Output 02/15/19 02/16/19 02/16/19 22:59 06:59 14:59 Intake Total 350 100 Output Total 400 2 Balance -50 98 Med Orders - Current: Current Medications Acetaminophen (Tylenol) 650 mg PO Q6H PRN PRN Reason: Pain Last Admin: 02/13/19 15:43 Dose: 650 mg Albuterol (Ventolin Hfa) 0 gm INH BID PRN PRN Reason: Shortness of Breath Albuterol/Ipratropium (Duoneb 3.0-0.5 Mg/3 Ml) 3 ml NEB Q4HRRT PRN PRN Reason: shortness of breath Last Admin: 02/15/19 06:12 Dose: 3 ml Aspirin (Aspirin) 81 mg PO DAILY [facility] Last Admin: 02/16/19 08:36 Dose: 81 mg Budesonide (Pulmicort) 0.5 mg NEB BID@0830,2030 [facility] Last Admin: 02/16/19 07:59 Dose: 0.5 mg Carvedilol (Coreg) 12.5 mg PO BID [facility] Escitalopram Oxalate (Lexapro) 10 mg PO DAILY [facility] Last Admin: 02/16/19 08:36 Dose: 10 mg Folic Acid (Folic Acid) 1 mg PO BEDTIME [facility] Last Admin: 02/15/19 20:29 Dose: 1 mg Furosemide (Lasix) 40 mg PO DAILY [facility] Last Admin: 02/16/19 08:36 Dose: 40 mg Furosemide (Lasix) 20 mg PO DAILY [facility] Glycopyrrolate (Robinul) 0.5 mg PO BID [facility] Last Admin: 02/16/19 08:36 Dose: 0.5 mg Levothyroxine Sodium (Levothyroxine) 25 mcg PO ACBREAKFAST [facility] Last Admin: 02/16/19 06:29 Dose: 25 mcg Methylprednisolone Sodium Succinate (Solu-Medrol) 80 mg IVPUSH Q12H [facility] Nystatin (Mycostatin) 10 ml PO QID [facility] Last Admin: 02/16/19 08:37 Dose: 10 ml Ondansetron HCl (Zofran Odt) 4 mg PO Q6H PRN PRN Reason: Nausea/Vomiting Potassium Chloride (Klor-Con 10) 20 meq PO DAILY [facility] Last Admin: 02/16/19 08:37 Dose: 20 meq Rivaroxaban (Xarelto) 20 mg PO DAILY [facility] Last Admin: 02/16/19 08:36 Dose: 20 mg Senna/Docusate Sodium (Senna Plus) 2 tab PO BID PRN PRN Reason: Constipation Sodium Chloride (Saline Flush) 10 ml FLUSH Q8HR PRN PRN Reason: lock flush Last Admin: 02/16/19 03:27 Dose: 10 ml Thiamine HCl (Vitamin B-1) 100 mg PO BEDTIME [facility] Last Admin: 02/15/19 20:28 Dose: 100 mg Tramadol HCl (Ultram) 50 mg PO Q6H PRN PRN Reason: Pain Trolamine Salicylate (Aspercreme 10%) 1 gm TOP Q1H PRN PRN Reason: Pain Discontinued Medications Furosemide (Lasix) 40 mg IVPUSH NOW ONE Stop: 02/13/19 12:06 Last Admin: 02/13/19 13:11 Dose: 40 mg Furosemide (Lasix) 40 mg IVPUSH NOW ONE Stop: 02/14/19 10:07 Last Admin: 02/14/19 10:36 Dose: 40 mg Methylprednisolone Sodium Succinate (Solu-Medrol) 125 mg IVPUSH ONETIME ONE Stop: 02/14/19 10:08 Last Admin: 02/14/19 10:36 Dose: 125 mg Methylprednisolone Sodium Succinate (Solu-Medrol) 80 mg IVPUSH Q8H [facility] Last Admin: 02/16/19 03:23 Dose: 80 mg Prednisone (Prednisone) 10 mg PO WITHBREAKFAST [facility] Last Admin: 02/15/19 09:02 Dose: 10 mg - Exam General: Cooperative, No Acute Distress, Other (She appears very tired today.) Lungs: Crackles (Improved from previous days.) Cardiovascular: No Murmurs, Irregular Rhythm GI/Abdominal Exam: Normal Bowel Sounds Extremities: No Pedal Edema - Problem List & Annotations (1) Acute exacerbation of CHF (congestive heart failure) SNOMED Code(s): 943136976, [id number] Code(s): I50.9 - HEART FAILURE, UNSPECIFIED Status: Acute Current Visit: Yes (2) Atrial fibrillation SNOMED Code(s): 97360626 Code(s): I48.91 - UNSPECIFIED ATRIAL FIBRILLATION Status: Acute Current Visit: No (3) COPD (chronic obstructive pulmonary disease) SNOMED Code(s): 97816151 Code(s): J44.9 - CHRONIC OBSTRUCTIVE PULMONARY DISEASE, UNSPECIFIED Status : Chronic Current Visit: No (4) Weakness SNOMED Code(s): 81801780 Code(s): R53.1 - WEAKNESS Status: Chronic Current Visit: No - Problem List Review Problem List Initiated/Reviewed/Updated: Yes - My Orders Last 24 Hours: My Active Orders 02/15/19 08:35 Dietary Supplements [RC] BIDAC 02/16/19 09:00 methylPREDNISolone Sod Succ [Solu-MEDROL] 80 mg IVPUSH Q12H 02/16/19 14:00 Furosemide [Lasix] 20 mg PO DAILY - Assessment Assessment:: CHF exacerbation COPD A-fib Hypotension Hypothyroidism Depressed mood - Plan Plan:: CHF exacerbation. Will increase outpatient lasix from 40 mg PO daily to 40 mg PO q AM and 20 mg PO q PM. COPD. Solumedrol 80 mg IV BID today and then may need to increase her taper that she was on with perhaps a maintenance dose of steroid at baseline. A-fib, rate controlled currently. Holding beta-aisha due to hypotension. Hypotension. Improved. Anticipate this will improve further once extra volume is removed and heart will have better contractility. Hypothyroidism. Adequately replaced, continue outpatient levothyroxine dose. Depressed mood. Will start escitalopram 10 mg PO daily, she was willing to start this.
[2019-02-16] MEDS: Albuterol/Ipratropium 3.0-0.5 MG/3 ML Neb Soln NEB PRN (09:58)
[2019-02-16] MEDS: Furosemide 20 MG Tab PO SCH (13:42)
[2019-02-16] MEDS: Folic Acid 1 MG Tab PO SCH (20:59)
[2019-02-16] MEDS: Thiamine 100 MG Tab PO SCH (20:59)
[2019-02-17] MEDS: methylPREDNISolone Sodium Succinate 125 MG/2 ML SDV IVPUSH SCH (05:21)
[2019-02-17] MEDS: Sodium Chloride 0.9% 10 ML Syringe FLUSH PRN (05:26)
[2019-02-17] MEDS: Levothyroxine 25 MCG Tab PO SCH (06:41)
[2019-02-17] MEDS: Budesonide 0.5 MG/2 ML Neb Susp NEB SCH (08:45)
[2019-02-17] MEDS: Nystatin Susp 100,000 Unit/ML 5 ML UD Cup PO SCH (09:04)
[2019-02-17] MEDS: Potassium Chloride 10 MEQ Tab.ER PO SCH (09:04)
[2019-02-17] MEDS: Rivaroxaban 10 MG Tab PO SCH (09:04)
[2019-02-17] MEDS: Aspirin 81 MG Tab.Chew PO SCH (09:05)
[2019-02-17] MEDS: Escitalopram 10 MG Tab PO SCH (09:05)
[2019-02-17] MEDS: Glycopyrrolate 1 MG Tab PO SCH (09:05)
[2019-02-17] MEDS: Furosemide 40 MG Tab PO SCH (09:05)
[2019-02-17 11:39] VITALS: BP 139/94; PULSE 117
[2019-02-17] MEDS: Furosemide 20 MG Tab PO SCH (12:09)
--- NOTE | 2019-02-18 08:40 | DISCH ---
HOSPITAL COURSE: This is an 78-year-old female who was admitted to the hospital on 02/13/2019 with exacerbation of CHF. Her chest x-ray prior to admission showed a moderate amount of congestive heart failure. Her lab work has been fairly unremarkable. BNP was 763. We have made some changes to her medications to include escitalopram as an antidepressant. Her Lasix was increased from 40 mg daily to 40 mg in the morning and 20 mg in the afternoon. We also treated her with significant doses of Solu-Medrol. She will continue on a prednisone taper over the course of the next four weeks and maintained a daily dose of 10 mg daily after the taper is completed. The patient has become quite deconditioned and weak. She has an impaired exercise tolerance. She is oxygen-dependent at this time. She does tire easily. She has improved while being in the hospital, mostly from the increased doses of Lasix as well as Solu-Medrol. She did not have an infective process present. Carvedilol was discontinued due to the fact that the patient was hypotensive. PHYSICAL EXAMINATION: VITAL SIGNS: Temp is 97.1, pulse 117, respirations 22, blood pressure 139/94, O2 saturation is 92% on 2 L of oxygen. SKIN: Warm and dry to touch. CARDIAC: Reveals irregularly irregular rhythm with no murmur, click, or gallop auscultated. LUNGS: Do have fine bibasilar crackles, which have improved since admission. ABDOMEN: Soft, nontender. Bowel sounds present in all four quadrants. There is no pedal edema. IMPRESSION: 1. Congestive heart failure exacerbation. This has improved marginally. The patient does seem to be declining from a physical standpoint. 2. Depression and she was started on an antidepressant due to the fact that she was quite down on 02/14/2019, when she was seen by Dr. Lanza. Her spirits have been improved somewhat. 3. Chronic restrictive pulmonary disease. She will continue on a prednisone taper over the course of a month and continue on a 10 mg daily dose following that. 4. Atrial fibrillation, rate is controlled. Her Coreg has been held due to hypotension and congestive heart failure exacerbation. This has not affected her heart rate. 5. Hypotension, improved. 6. Hypothyroidism, adequately replaced. Continue levothyroxine. 7. Deconditioning and weakness. [facility]. I did speak to her son, Robert, prior to the patient's discharge. He was concerned that the patient's condition does not seem to be improving, in fact seems to be declining, and asked how long I thought she would live. I have no way of predicting that. He was concerned that now she may be going in between the [place] and the hospital with exacerbations. Hopefully, we can catch the congestive heart failure exacerbations prior to them getting as bad as they were the day that she was admitted to the hospital. We will continue to follow. /[id number]/MODL
== END 2019-02-17 13:20 | DRG 292 ==
LOC: KA.OC 10:14 → UNDOADMIN 10:35 → KA.MS 10:35
PROVIDERS: ADMIT Internal Medicine; ATTEND Internal Medicine
DX: I11.0 Hypertensive heart disease with heart failure (principal); R09.89 Other specified symptoms and signs involving the circulatory and respiratory systems; E46 Unspecified protein-calorie malnutrition; R53.1 Weakness; R32 Unspecified urinary incontinence; I50.9 Heart failure, unspecified; I10 Essential (primary) hypertension; F32.9 Major depressive disorder, single episode, unspecified; J44.9 Chronic obstructive pulmonary disease, unspecified; I48.91 Unspecified atrial fibrillation; I95.9 Hypotension, unspecified; F41.9 Anxiety disorder, unspecified; H91.90 Unspecified hearing loss, unspecified ear; E78.5 Hyperlipidemia, unspecified; E03.9 Hypothyroidism, unspecified; M19.90 Unspecified osteoarthritis, unspecified site; Z88.8 Allergy status to other drugs, medicaments and biological substances; Z87.01 Personal history of pneumonia (recurrent); Z88.5 Allergy status to narcotic agent; Z88.6 Allergy status to analgesic agent; Z79.899 Other long term (current) drug therapy; Z79.52 Long term (current) use of systemic steroids; Z79.82 Long term (current) use of aspirin; Z79.01 Long term (current) use of anticoagulants; Z98.42 Cataract extraction status, left eye; Z87.891 Personal history of nicotine dependence; Z86.73 Personal history of transient ischemic attack (TIA), and cerebral infarction without residual deficits; Z68.21 Body mass index [BMI] 21.0-21.9, adult
CPT/HCPCS: 36415; 36600; 71046; 80048; 82803; 83735; 83880; 84100; 84439; 84443; 85025; 94640; A9270-GY; J1940; J2930; J7620-GY